=== PATIENT | female | born 2000 | race Caucasian/White ===

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

== ENCOUNTER 2020-02-04 14:09 | Outpatient (CLI) | payer BC, SELFPAY ==
[2020-02-04 14:46] LABS: Abs Immature Grans 0.01 k/cumm (0.0-0.09); Absolute Basophil Count 0.02 k/cumm (0.0-0.2); Absolute Eosinophil Count 0.02 k/cumm (0.0-0.7); Absolute Lymphocyte Count 2.25 k/cumm (1.2-3.4); Absolute Monocyte Count 0.31 k/cumm (0.11-0.7); Absolute Neutrophil Count 5.04 k/cumm (1.2-6.7); Basophils % 0.3; Eosinophils % 0.3; HCT 41.5 % (36.0-46.0); HGB 14.1 g/dL (12.0-15.5); Immature Grans % 0.1 %; Lymphocytes % 29.4; Mean Corpuscular Hemoglobin 29.4 pg (27.0-33.0); Mean Corpuscular Volume 86.6 fL (80-95); Mean Platelet Volume 10.8 fL (8.0-11.0); Monocytes % 4.1; Neutrophils % 65.8; Platelet Count 194 x1000/uL (130-400); RBC 4.79 m/cumm (4.00-5.20); RBC Distribution Width 12.6 % (11.7-14.6); White Blood Cell Count 7.65 k/cumm (4.4-10.8)
[2020-02-04 15:08] LABS: Hemoglobin A1C 5.2 % (3.8-5.6)
[2020-02-04 15:44] LABS: ALT 18 U/L (14-59); AST 20 U/L (15-37); Albumin 4.1 g/dL (3.4-5.0); Alkaline Phosphatase 67 U/L (46-116); Anion Gap 9.1 mmol/L (3-11); BUN 11 mg/dL (7-18); Bilirubin, Total 0.4 mg/dL (0.2-1.0); CO2 26.9 mmol/L (21.0-32.0); Calcium 8.7 mg/dL (8.5-10.1); Chloride 105 mmol/L (98-107); FREE T4 0.96 ng/dL (0.78-1.34); Glucose 88 mg/dL (74-106); Potassium 3.7 mmol/L (3.5-5.1); Sodium 141 mmol/L (136-145); TSH 1.29 uIU/mL (0.52-4.13); Total Protein 7.2 g/dL (6.4-8.2)
== END 2020-02-04 14:29 ==
PROVIDERS: PCP Nurse Practitioner Family; Visit Provider Nurse Practitioner Family
DX: R10.9 Unspecified abdominal pain (principal); R11.2 Nausea with vomiting, unspecified
CPT/HCPCS: 36415; 80053; 83036; 84439; 84443; 85025

== ENCOUNTER 2020-03-28 18:20 | Outpatient (REF) | payer BC, SELFPAY ==
[2020-03-30 13:20] LABS: Chlamydia Result Negative (Negative); GC Result Negative (Negative)
== END 2020-03-28 18:40 ==
LOC: LBN 18:20
PROVIDERS: PCP Nurse Practitioner Family; Visit Provider Nurse Practitioner Women's Health
DX: Z11.3 Encounter for screening for infections with a predominantly sexual mode of transmission (principal)
CPT/HCPCS: 87491; 87591

== ENCOUNTER 2020-09-14 14:32 | Outpatient (REF) | payer BC, SELFPAY ==
[2020-09-14 20:28] LABS: Abs Immature Grans 0.02 10^3/uL (0.0-0.06); Absolute Basophil Count 0.03 10^3/uL (0.0-0.2); Absolute Eosinophil Count 0.01 10^3/uL (0.0-0.7); Absolute Lymphocyte Count 2.41 10^3/uL (1.2-3.4); Absolute Neutrophil Count 5.55 10^3/uL (1.2-6.7); Basophils % 0.4; Eosinophils % 0.1; HCT 39.9 % (36.0-46.0); HGB 13.5 g/dL (11.2-15.7); Immature Grans % 0.2; MCH 29.5 pg (27.0-33.0); MCHC 33.8 % (32.0-36.0); MCV 87.1 fL (80-95); MPV 11.3 fL (8.0-11.0); Monocytes % 3.6; Neutrophils % 66.7; Nucleated RBC 0 %; Platelet Count 174 10^3/uL (130-400); RBC 4.58 10^6/uL (3.93-5.22); RDW 11.9 % (11.7-14.6); RDW-SD 38.1 fL; WBC 8.32 10^3/uL (4.4-10.8)
[2020-09-14 20:36] LABS: ALT 20 U/L (14-59); AST 19 U/L (15-37); Alkaline Phosphatase 65 U/L (46-116); Amylase 38 U/L (25-115); BUN 14 mg/dL (7-18); Bilirubin, Total 0.4 mg/dL (0.2-1.0); CREATININE 0.88 mg/dL (0.55-1.02); Calcium 8.8 mg/dL (8.5-10.1); Chloride 104 mmol/L (98-107); Glucose 81 mg/dL (74-106); Lipase 86 U/L (73-393); Potassium 3.8 mmol/L (3.5-5.1); Sodium 138 mmol/L (136-145); Total Protein 6.9 g/dL (6.4-8.2)
== END 2020-09-14 14:52 ==
LOC: LBN 14:32
PROVIDERS: PCP Nurse Practitioner Family; Visit Provider Nurse Practitioner Family
DX: R10.84 Generalized abdominal pain (principal); K92.0 Hematemesis
CPT/HCPCS: 80053; 83690; 82150; 85025

== ENCOUNTER 2020-09-21 01:29 | Outpatient (CLI) | payer BC, SELFPAY ==
--- NOTE | 2020-09-21 06:41 | DI.US_ITS ---
EXAM: US ABD PELV TRANSVAG NON-OB INDICATION: ABD AND LOWER ABD PAIN,? OVARIAN CYST,R10.84,R10.30 COMPARISON: No exams were available for comparison TECHNIQUE: Ultrasound abdomen performed using standard protocol FINDINGS: Abdominal ultrasound was performed according to the usual protocol. The liver is normal in size and shape. No focal hepatic lesion seen. There is no evidence of cholelithiasis or biliary dilatation. No gallbladder wall thickening or peric holecystic fluid collection. Pancreas appears intact as visualized. Spleen is unremarkable in appearance with no focal lesion. Kidneys are normal in size and shape. No renal mass, hydronephrosis, or nephrolithiasis. Abdominal aorta and IVC are of normal diameter. Pelvic ultrasound was performed transabdominally and transvaginally. Uterus is unremarkable in appea ezekiel, measuring about 5 x 2 x 4 cm. Endometrial stripe is 3 millimeters in thickness and appears ho mogeneous. Right and left ovary have a normal follicular appearance, right ovary measures 31 x 14 x 18 millimete rs and left ovary measures 30 x 18 x 18 millimeters. No free fluid identified in the cul-de-sac. IMPRESSION: Negative abdominal ultrasound . Negative pelvic ultrasound.
== END 2020-09-21 01:49 ==
PROVIDERS: PCP Nurse Practitioner Family; Visit Provider Nurse Practitioner Family
DX: R10.84 Generalized abdominal pain (principal); R10.30 Lower abdominal pain, unspecified
CPT/HCPCS: 76700; 76830; 76856

== ENCOUNTER 2020-10-23 10:00 | Outpatient (CLI) | payer BC, SELFPAY ==
[2020-10-24 17:44] LABS: Patient Race White; SARS-CoV-2 RNA Undetected (Undetected); SARS-CoV-2 Specimen Source Nasal
== END 2020-10-23 10:20 ==
PROVIDERS: PCP Nurse Practitioner Family; Visit Provider Nurse Practitioner Family
DX: Z11.59 Encounter for screening for other viral diseases (principal)
CPT/HCPCS: U0003

== ENCOUNTER 2020-12-05 22:55 | Outpatient (REF) | payer BC, SELFPAY ==
[2020-12-07 15:45] LABS: Chlamydia Result Negative (Negative); GC Result Negative (Negative)
== END 2020-12-05 23:15 ==
LOC: LBN 22:55
PROVIDERS: PCP Nurse Practitioner Family; Visit Provider Physician Assistant
DX: R10.2 Pelvic and perineal pain (principal)
CPT/HCPCS: 87491; 87591; 87480; 87510; 87660

== ENCOUNTER 2020-12-13 04:19 | Outpatient (CLI) | payer BC, SELFPAY ==
[2020-12-15 10:28] LABS: HSV Type 1 Ab, IgG Negative (Negative); HSV Type 2 Ab, IgG Positive (Negative)
== END 2020-12-13 04:39 ==
PROVIDERS: Physician Assistant; PCP Nurse Practitioner Family; Visit Provider Nurse Practitioner Family
DX: R10.2 Pelvic and perineal pain (principal)
CPT/HCPCS: 36415; 86695; 86696

== ENCOUNTER 2021-01-26 02:06 | Outpatient (CLI) | payer BC, SELFPAY ==
[2021-01-26 12:37] LABS: BUN 12 mg/dL (7-18); CREATININE 0.8 mg/dL (0.55-1.02); Calcium 8.9 mg/dL (8.5-10.1); Calculated LDL 94 mg/dL (<100); Chloride 107 mmol/L (98-107); Cholesterol 173 mg/dL (<200); Glucose 88 mg/dL (74-106); HDL Cholesterol 67 mg/dL (40-60); Potassium 4.7 mmol/L (3.5-5.1); Sodium 144 mmol/L (136-145); Triglyceride 63 mg/dL (<150)
== END 2021-01-26 02:07 | disposition home or self-care (01) ==
LOC: LOS 02:06
PROVIDERS: PCP Nurse Practitioner Family; Visit Provider Nurse Practitioner Family
DX: Z00.00 Encounter for general adult medical examination without abnormal findings (principal); Z13.220 Encounter for screening for lipoid disorders
CPT/HCPCS: 36415; 80048; 80061

== ENCOUNTER 2021-04-04 23:07 | Outpatient (REF) | payer BC, SELFPAY ==
[2021-04-06 15:46] LABS: Chlamydia Result Negative (Negative); GC Result Negative (Negative)
== END 2021-04-04 23:08 | disposition home or self-care (01) ==
LOC: LBN 23:07
PROVIDERS: PCP Nurse Practitioner Family; Visit Provider Family Medicine
DX: N89.8 Other specified noninflammatory disorders of vagina (principal); Z11.3 Encounter for screening for infections with a predominantly sexual mode of transmission
CPT/HCPCS: 87491; 87591; 87480; 87510; 87660

== ENCOUNTER 2021-06-05 13:52 | Outpatient (CLI) | payer BC, SELFPAY ==
--- NOTE | 2021-06-05 13:30 | DI.RAD_ITS ---
Exam(s) XR SHOULDER LT COMPLETE 2+V EXAM: XR SHOULDER LT COMPLETE 2+V CLINICAL HISTORY: left shoulder pain. TECHNIQUE: 2D digital imaging was performed. COMPARISON: CR XR shoulder LT complete 2+V from 06/16/2019 FINDINGS: There is no evidence of fracture or dislocation or abnormal soft tissue calcifications in the subacro mial space. No degenerative changes in the glenohumeral and AC joints. Coracoid process is unremark able. Bone density is normal. There are no osseous lesions. IMPRESSION: DATA REPOSITORY: RADIATION DOSE DELIVERED:
== END 2021-06-05 13:53 | disposition home or self-care (01) ==
LOC: DIORS 13:52
PROVIDERS: PCP Nurse Practitioner Family; Referring Provider Nurse Practitioner Family; Visit Provider Student in an Organized Health Care Education/Training Program
DX: M25.512 Pain in left shoulder (principal)
CPT/HCPCS: 73030

== ENCOUNTER 2021-11-13 17:08 | Outpatient (REF) | payer BC, SELFPAY ==
[2021-11-15 16:58] LABS: COVID-19 RT-PCR UVMMC Result Negative (Negative)
== END 2021-11-13 17:09 | disposition home or self-care (01) ==
LOC: LBN 17:08
PROVIDERS: PCP Nurse Practitioner Family; Visit Provider Family Medicine
DX: Z20.822 Contact with and (suspected) exposure to COVID-19 (principal); R05.8 Other specified cough
CPT/HCPCS: U0003

== ENCOUNTER 2021-11-17 02:57 | Emergency (ER) | payer BC, SELFPAY ==
[2021-11-17 03:00] VITALS: BP 181/117; PULSE 110; RESP 18; TEMP 36.7; O2SAT 99
--- NOTE | 2021-11-17 03:15 | ED.GENADUL_ITS ---
Discharge Plan Disposition Patient Disposition: HOME Condition: Stable Discharge Details Clinical Impression: Laceration of right thigh Primary Care Provider: Kim Campuzano ED Provider: Fred Villalta Home Meds and New Rx's Prescriptions: Continued norgestimate-ethinyl estradiol [Sprintec (28)] 0.25-35 mg-mcg tablet 1 tab PO DAILY Qty: 84 RF: 4 valacyclovir 1 gram tablet 1,000 mg PO DAILY Qty: 90 RF: 4 albuterol sulfate 90 mcg/actuation HFA aerosol inhaler 2 puff inhalation Q8H Qty: 6.7 RF: 4 Discontinued prednisone 20 mg tablet 40 mg PO DAILY Qty: 14 RF: 0 Discharge Instructions Additional Instructions: return in 7-10 days for evaluation for suture removal you can stop taking the prednisone if you have spreading redness, yellow/white discharge or severe worsening pain return to the emergency department follow up with [facility] human services, they should be reaching out to you later today Medical Decision Making 21 yo female comes in with wound to the anterior mid right thigh. She states she has been feeling depressed recently and having thoughts of self harm and tonight used a knife and cut her right thigh leaving a 4cm laceration that runs horizontally. Denies now that she wants to kill herself or having a plan and has not taken or done anything else to harm herself. The wound is superficial but will need sutures to close. Will also have mental health evaluate mental health evaluated and feel she is low risk and safe for d/c and will follow up with her today, agree that discharge is a safe plan. Wound closed without incident, return precautions given Differential Diagnosis Differential Diagnosis: laceration, depression Medical Records Medical records reviewed: Yes I reviewed the patient's medical records. HPI General Mode of arrival: ambulatory . Date/Time Provider Initiated Documentation: 11/17/21 03:07 . Limitations to Documentation: no limitations . Information obtained by: patient . History of Present Illness 21 year old F presents to the emergency department with the chief complaint of cut to right thigh, described as moderate, Quality is described as aching, Patient started experiencing this hour(s) (1) and it has been constant. No relieving factors improve symptom(s), No exacerbating factors reported . Patient notes no other symptoms.. Related Data Home Medications Medication Instructions Recorded Confirmed norgestimate 0.25 mg-ethinyl 1 tab PO DAILY #84 tab 01/22/21 11/13/21 estradiol 35 mcg tablet valacyclovir 1 gram tablet 1,000 mg PO DAILY #90 tab 08/01/21 11/13/21 albuterol sulfate 90 mcg/actuation 2 puff INHALATION Q8H #6.7 g 11/06/21 11/13/21 aerosol inhaler Previous Rx's Medication Instructions Recorded norgestimate 0.25 mg-ethinyl 1 tab PO DAILY #84 tab 01/22/21 estradiol 35 mcg tablet valacyclovir 1 gram tablet 1,000 mg PO DAILY #90 tab 08/01/21 albuterol sulfate 90 mcg/actuation 2 puff INHALATION Q8H #6.7 g 11/06/21 aerosol inhaler Allergies Allergy/AdvReac Type Severity Reaction Status Date / Time nickel AdvReac Unknown Skin Rash Verified 11/13/21 13:07 General Stated Complaint: Laceration KATY: 4 Review of Systems All systems reviewed & are unremarkable except as noted in HPI and below Constitutional Constitutional: Denies chills, Denies fever(s) and Denies weakness Cardiovascular Cardiovascular: Denies chest pain and Denies dyspnea Respiratory Respiratory: Denies cough and Denies dyspnea Gastrointestinal Gastrointestinal: Denies abdominal pain, Denies nausea and Denies vomiting Musculoskeletal Musculoskeletal: Denies joint swelling Neurologic Neurologic: Denies weakness PFSH All Active Problems (Updated 11/17/21 @ 03:25 by Fred Villalta MD) Laceration of right thigh (Acute) COVID-19 (Acute) 10/2021-associated with URI and bronchospasm Tendinitis of long head of biceps brachii of left shoulder (Acute) Labral tear of shoulder (Acute) Instability of left shoulder joint (Acute) Vaginal discharge (Acute) Cervical motion tenderness (Acute) Depressive disorder (Chronic) Generalized anxiety disorder (Chronic) Genital herpes (Acute) Surgical History No significant past surgical history Family History Mother Asthma Alcohol abuse Depression Father Bipolar disorder Alcohol abuse Sister Alcohol abuse Depression Brother No problems noted. Brother Alcohol abuse Maternal Grandfather , at 63 Brain cancer Depression Heart disease Hyperlipidemia Hypertension Type 2 diabetes mellitus Maternal Grandmother Depression Hyperlipidemia Paternal Grandfather , at 52 Brain cancer Type 2 diabetes mellitus Alcohol abuse Heart disease Hyperlipidemia Hypertension Paternal Grandmother , 50s Alcohol abuse Lung cancer Depression Social History Smoking/Tobacco Use Status: Never Smoking risk assessment performed?: Yes Alcohol Intake: current Alcohol Intake frequency: a few times a month Substance use type: marijuana Caregiver/Support person: No Household members: family Housing: house Communication Needs: None Do you need help understanding health information?: Never Pets and animals: Yes Pets and animals: cat(s) Sexually active: Yes Do you think of yourself as: bisexual Current gender identity: female What is your relationship status?: never How often do you talk on the phone with friends or family?: three or more times per week How often do you get together with friends or relatives?: three or more times per week How often do you attend alevism or hoahaoism services?: decline to answer Do you belong to any clubs or organized social groups?: no Panel score (0-1 are the most socially isolated patients): 1 What type of physical activity do you participate in: decline to answer Duration: 30-45 minutes/day Frequency: 3-4 times per week Dawn/Mormonism: None Special dawn needs: No Seatbelt use: sometimes Helmet use: Yes Helmet use: sometimes Drive intox or ride w/intox transit driver: No Do you feel safe at home: Yes Do you feel safe in your relationship?: Yes Female Reproductive History Menstrual control method: pills History History 0 Para Hx # Term Pregnancies Multiple births Hx # Pregnancies Ectopic pregnancies AB induced Hx Number of Living Children AB spontaneous Exam Const General: no acute distress Orientation: alert HENMT Head: normal to inspection Ears: external ears normal General nose exam: external nose normal Mouth: moist mucous membranes Eyes General: appearance normal, both eyes and all related structures Neck Neck: normal visual inspection Resp Effort & Inspection: normal respiratory effort and able to speak in complete sentences Cardio Rate: regular rate Skin General skin exam: no rashes or lesions noted Neuro General: patient alert and patient oriented x3 Extrem General: full ROM and capillary refill normal Psych Mental Status: mental status grossly normal Course Vital Signs Vital signs: Vital Signs Temperature 36.7 C 11/17/21 03:00 Pulse 110 H 11/17/21 03:00 Respiratory Rate 18 12/25/21 03:00 Blood Pressure 181/117 H 11/17/21 03:00 Pulse Oximetry 99 11/17/21 03:00 Temperature 36.7 C 11/17/21 03:00 Temperature Source Temporal Artery Scan 11/17/21 03:00 Pulse 110 H 11/17/21 03:00 Respiratory Rate 18 11/17/21 03:00 Respiratory Effort 11/17/21 03:07 Blood Pressure 181/117 H 11/17/21 03:00 Blood Pressure Position Supine 11/17/21 03:00 Pulse Oximetry 99 11/17/21 03:00 Oxygen Delivery Method Room Air 11/17/21 03:00 Oxygen Flow Rate 0 11/17/21 03:00 Pain Level 0 11/17/21 03:00 Procedures Laceration Laceration 1: Site: lower extremity Side (If applicable): right Size (cm): 4 Description: linear Depth: simple, single layer Local Anesthetic: Lidocaine 1% Amount of anesthesia used (mL): 5 Pre-repair: wound explored and irrigated extensively Skin layer closed with: nylon Size (cm): 5-0 Number of sutures: 4 Technique: simple, interrupted
--- NOTE | 2021-11-17 04:18 | PDOC.MHCN ---
Date of service: 11/17/21 Time of Service: 04:18 Mental Health Crisis Note Presenting Issue How did you arrive at the ED and why did you come: Client arrived at [facility] ED after self-harming via cutting this morning. Precipitating Factors Client currently denies SI/HI with no intent or plan Disposition BEHAVIOR: Client is laying down in hospital bed dressed in street clothes when this software writer arrives via zoom. She is cooperative and engages with this software writer, although appears to be withdrawn at times. Client states that tonight she was having a panic attack and used a razor blade to cut a 4 inch laceration on her thigh. She states that as soon as she did that she automatically regretted it and threw all sharps away. EYE CONTACT: Client gives good eye contact. MOOD: Clients mood appears to be depressed. AFFECT: Flat affect APPETITE: Client states that her appetite has been good, she feels likes she has been eating more than normal though. SLEEP(trouble falling/staying asleep: Client states that since taking steroid for cold she has been getting minimal sleep, about 1 hour each night. Plan Client will go home on safety plan, which includes: all medications and sharps will be locked up so client no longer has access, client will check-in with [facility] this afternoon phone number provided, and if client does not feel like she can keep herself safe at home she will report back to [facility] ED. Signature Clinician's Name/Title: Katlin Rascon, [facility] emergency clinician.
[2021-11-17 04:41] VITALS: BP 122/68; PULSE 95; RESP 18; O2SAT 99
== END 2021-11-17 04:44 | disposition home or self-care (01) ==
PROVIDERS: Emergency Provider Emergency Medicine; PCP Nurse Practitioner Family
DX: S71.111A Laceration without foreign body, right thigh, initial encounter (principal); X78.1XXA Intentional self-harm by knife, initial encounter
CPT/HCPCS: 12002

== ENCOUNTER 2021-12-12 15:09 | Outpatient (REF) | payer BC, SELFPAY ==
--- NOTE | 2021-12-12 14:50 | PAPFT_PTH ---
PATIENT: Asiya Tate LOC: [facility] U#:[id number] AGE/SX: 21/F ROOM: RE12/12/[address]: Deisi Villalta NP : [id number] BED: DIS: 12/12/2021 SPEC #: [id number] RECD: 12/12/21 18:04 STATUS: ISABELLA ARGUELLES #: [id number] SEVERO: 12/12/21 14:[address]: Deisi Villalta NP DEPT: [facility] Cytology RECD BY: Leatha Matute ENTERED: 12/12/21 18:04 SP TYPE: PAPFT TEREZA DR: Kim Campuzano, [employer] Tissues: 1 - CX/ENDOCX FOR PAP SMEARS Procedures: PAP THIN PREP/[facility] Screening Comments: [id number] (CHLAMYDIA/GC)
[2021-12-13 16:38] LABS: Chlamydia Result Negative (Negative); GC Result Negative (Negative)
== END 2021-12-12 15:10 | disposition home or self-care (01) ==
LOC: LBN 15:09
PROVIDERS: PCP Nurse Practitioner Family; Visit Provider Nurse Practitioner Women's Health
DX: Z12.4 Encounter for screening for malignant neoplasm of cervix (principal); Z11.3 Encounter for screening for infections with a predominantly sexual mode of transmission
CPT/HCPCS: 87491; 87591; 88142

== ENCOUNTER 2022-01-16 19:00 | Outpatient (REF) | payer BC, SELFPAY ==
[2022-01-18 15:21] LABS: Chlamydia Result Negative (Negative); GC Result Negative (Negative)
== END 2022-01-16 19:01 | disposition home or self-care (01) ==
LOC: LBN 19:00
PROVIDERS: PCP Nurse Practitioner Family; Visit Provider Nurse Practitioner Women's Health
DX: Z11.3 Encounter for screening for infections with a predominantly sexual mode of transmission (principal)
CPT/HCPCS: 87491; 87591

== ENCOUNTER 2022-03-25 14:36 | Outpatient (CLI) | payer BC, SELFPAY ==
[2022-03-25 13:59] LABS: Abs Immature Grans 0.03 10^3/uL (0.0-0.06); Absolute Basophil Count 0.03 10^3/uL (0.0-0.2); Absolute Eosinophil Count 0.02 10^3/uL (0.0-0.7); Absolute Lymphocyte Count 2.94 10^3/uL (1.2-3.4); Absolute Monocyte Count 0.36 10^3/uL (0.1-0.8); Absolute Neutrophil Count 5.95 10^3/uL (1.2-6.7); Basophils % 0.3; Eosinophils % 0.2; HCT 39.6 % (36.0-46.0); HGB 13.2 g/dL (11.2-15.7); Immature Grans % 0.3; Lymphocytes % 31.5; MCH 29.9 pg (27.0-33.0); MCHC 33.3 % (32.0-36.0); MCV 90 fL (80-95); Monocytes % 3.9; Neutrophils % 63.8; Platelet Count 184 10^3/uL (130-400); RBC 4.41 10^6/uL (3.93-5.22); RDW 12.1 % (11.7-14.6); RDW-SD 40.4 fL; WBC 9.33 10^3/uL (4.4-10.8)
[2022-03-25 14:01] LABS: Bilirubin Negative (Negative); Blood Negative (Negative); Clarity Clear (Clear); Glucose Negative (Negative); Ketones Negative (Negative); Leukocyte Esterase Negative (Negative); Nitrite Negative (Negative); Specific Gravity >= 1.030 (1.005-1.025); Urobilinogen 0.2 EU/dL (Up TO 0.2)
[2022-03-25 14:02] LABS: ESR < 1 mm/hr (0-20)
[2022-03-25 14:09] LABS: ALT 17 U/L (14-59); AST 16 U/L (15-37); Albumin 3.9 g/dL (3.4-5.0); Alkaline Phosphatase 72 U/L (46-116); BUN 17 mg/dL (7-18); Bilirubin, Total 0.2 mg/dL (0.2-1.0); CREATININE 0.8 mg/dL (0.55-1.02); Calcium 8.4 mg/dL (8.5-10.1); Chloride 105 mmol/L (98-107); Glucose 83 mg/dL (74-106); Lipase 84 U/L (73-393); Potassium 3.5 mmol/L (3.5-5.1); Sodium 141 mmol/L (136-145); Total Protein 7.2 g/dL (6.4-8.2)
[2022-03-25 15:48] LABS: C-Reactive Protein 0.13 mg/dL (0.0-0.3); TSH (W/Ref FT4) 0.65 uIU/mL (0.36-3.74)
== END 2022-03-25 14:37 | disposition home or self-care (01) ==
PROVIDERS: Family Medicine; PCP Nurse Practitioner Family; Visit Provider Family Medicine
DX: I10 Essential (primary) hypertension (principal); E03.9 Hypothyroidism, unspecified; R10.9 Unspecified abdominal pain; M25.50 Pain in unspecified joint
CPT/HCPCS: 36415; 80053; 83690; 85652; 81003; 84443; 85025; 86140

== ENCOUNTER 2022-05-03 15:37 | Outpatient (REF) | payer BC, SELFPAY ==
[2022-05-06 15:37] LABS: Chlamydia Result Negative (Negative); GC Result Negative (Negative)
== END 2022-05-03 15:38 | disposition home or self-care (01) ==
LOC: LBN 15:37
PROVIDERS: PCP Nurse Practitioner Family; Visit Provider Obstetrics & Gynecology
DX: R10.2 Pelvic and perineal pain (principal)
CPT/HCPCS: 87491; 87591

== ENCOUNTER 2022-08-13 08:52 | Emergency (ER) | payer OTHER, SELFPAY ==
[2022-08-13 09:37] VITALS: BP 135/88; PULSE 68; RESP 16; TEMP 37.2; O2SAT 100
[2022-08-13 09:45] LABS: Bilirubin Negative (Negative); Blood Negative (Negative); Clarity Clear (Clear); Glucose Negative (Negative); Ketones Negative (Negative); Leukocyte Esterase Negative (Negative); Nitrite Negative (Negative); Specific Gravity >= 1.030 (1.005-1.025); Urobilinogen 0.2 EU/dL (Up TO 0.2); pH 5.5 (5-8)
[2022-08-13 10:06] LABS: Abs Immature Grans 0.02 10^3/uL (0.0-0.06); Absolute Basophil Count 0.02 10^3/uL (0.0-0.2); Absolute Eosinophil Count 0.03 10^3/uL (0.0-0.7); Absolute Lymphocyte Count 2.32 10^3/uL (1.2-3.4); Absolute Monocyte Count 0.37 10^3/uL (0.1-0.8); Absolute Neutrophil Count 3.76 10^3/uL (1.2-6.7); Basophils % 0.3; Eosinophils % 0.5; HCT 41.5 % (36.0-46.0); HGB 13.8 g/dL (11.2-15.7); Immature Grans % 0.3; Lymphocytes % 35.6; MCH 29.2 pg (27.0-33.0); MCHC 33.3 % (32.0-36.0); MCV 88 fL (80-95); MPV 10.5 fL (8.0-11.0); Monocytes % 5.7; Neutrophils % 57.6; Platelet Count 184 10^3/uL (130-400); RBC 4.72 10^6/uL (3.93-5.22); RDW 12.4 % (11.7-14.6); RDW-SD 40.7 fL; WBC 6.52 10^3/uL (4.4-10.8)
--- NOTE | 2022-08-13 10:14 | DI.US_ITS ---
Exam(s) US ABD PELV TRANSVAG NON-OB EXAM: US ABD PELV TRANSVAG NON-OB CLINICAL HISTORY: RUQ pain, RLQ pain, eval ovary, kidney, gb, append TECHNIQUE: Ultrasound of the abdomen and pelvis was performed both transabdominal and transvaginal. COMPARISON: US US ABDOMEN LIMITED from 03/27/[address] ABDOMEN PELVIS WO from 04/04/2022 FINDINGS: ABDOMEN: There is no ascites evident. LIVER: There are no hepatic lesions evident nor obvious dilatation of intrahepatic ducts. GALLBLADDER/BILIARY: There are no gallstones. No gallbladder wall edema nor pericholecystic fluid. The common hepatic duct isnot dilated, measuring 4-5mm at the level of aleah hepatis. PANCREAS: There is no evidence of pancreatic mass nor dilatation of the pancreatic duct. SPLEEN: The spleen is not enlarged and there are no intrasplenic lesions evident. KIDNEYS:Kidneys exhibit normal size with no evidence of solid mass, calculus, nor hydronephrosis. No cortical cysts evident. ABDOMINAL AORTA: There is no evidence of abdominal aortic aneurysm. IVC: Normal diameter where visualized. UTERUS: Measures 6.5 cm length x 2.5 cm AP x 4.3 cm wide. There are no uterine fibroids. Endometrial thickness measures 1.4 mm. There is no fluid in the endometrial canal. CERVIX: There are no obvious nabothian cysts. RIGHT OVARY: Measures 4 x 2.2 x 2.7 cm Contains small sub cm follicular cysts. No solid lesions. LEFT OVARY: Measures 4.2 x 2 x 2.1 cm Also contains small sub cm follicular cysts but no solid lesions. CUL-DE-SAC: There is a tiny amount of free fluid adjacent to the uterine fundus. APPENDIX: Right lower quadrant imaging did not reveal evidence of a swollen appendix. IMPRESSION: 1. No evidence of cholelithiasis nor dilatation of the biliary tree. 2. No other significant ultrasound findings in the upper abdomen. 3. There is no ascites in the upper abdomen.. 4. Normal appearing uterus and age-appropriate endometrium. 5. No abnormal ovarian findings. 6. No obvious ultrasound evidence of appendicitis. 7. Tiny amount of free fluid adjacent to the fundus of the uterus. DATA REPOSITORY:
[2022-08-13 10:23] LABS: ALT 18 U/L (14-59); AST 18 U/L (15-37); Albumin 3.8 g/dL (3.4-5.0); Alkaline Phosphatase 66 U/L (46-116); Anion Gap 7.2 mmol/L (3-11); BUN 12 mg/dL (7-18); Bilirubin, Total 0.3 mg/dL (0.2-1.0); CO2 27.8 mmol/L (21.0-32.0); CREATININE 0.9 mg/dL (0.55-1.02); Calcium 8.9 mg/dL (8.5-10.1); Chloride 105 mmol/L (98-107); Glucose 78 mg/dL (74-106); Lipase 135 U/L (73-393); Potassium 3.7 mmol/L (3.5-5.1); Sodium 140 mmol/L (136-145); Total Protein 7.4 g/dL (6.4-8.2)
[2022-08-13] MEDS: Ketorolac 15 MG/ML VIAL IVP (10:24)
[2022-08-13] MEDS: oxyCODONE 5 MG TAB PO (10:24)
--- NOTE | 2022-08-13 12:19 | ED.GENADUL_ITS ---
Discharge Plan Disposition Patient Disposition: HOME Condition: Stable Discharge Details Clinical Impression: Abdominal pain Primary Care Provider: Kim Campuzano ED Provider: Leatha Calderón Home Meds and New Rx's Prescriptions: New dicyclomine 10 mg capsule 10 mg PO TID Qty: 14 0RF Continued valacyclovir 1 gram tablet 1,000 mg PO DAILY PRN (Reason: herpes outbreak) Qty: 60 5RF lorazepam 1 mg tablet 1 mg PO DAILY PRN (Reason: panic attack(s)) Qty: 20 0RF Rx Instructions: Use only when needed for panic attack norgestimate-ethinyl estradiol [Sprintec (28)] 0.25-35 mg-mcg tablet 1 tab PO DAILY Qty: 84 4RF Discharge Instructions Instructions: Abdominal Pain (ED) Additional Instructions: Try taking Bentyl Bentyl to see if that helps with your symptoms Take ibuprofen and Tylenol for pain control Have a low residue diet meaning low fiber Eat bland diet only, diarrhea from spicy food, coffee Follow-up with your primary care physician, you may benefit from having colonoscopy and endoscopy if you continue to have symptoms associated with food Referrals: Kim Campuzano, POPPY [Primary Care Provider] - Discharge Data Discharge Date/Time-TO BE ENTERED AT DEPARTURE: 08/13/22 12:30 Medical Decision Making Ultrasound does not show evidence of acute abnormality pelvic exam without evidence of pid referred back to pcp for further evaluation bentyl prn pain return precautions discussed and pt expressed understanding Medical Records Medical records reviewed: Yes I reviewed the patient's medical records. Lab Data Lab results reviewed: Yes I reviewed the patient's lab results. HPI General Date/Time Provider Initiated Documentation: 08/13/22 09:09 . HPI Narrative: This 22-year-old female with history of chronic right abdominal pain, generalized myalgias, depression, anxiety presents for of right upper quadrant and right lower quadrant abdominal pain. Is been going on intermittently for the past several months. Patient has had CAT scans and ultrasounds for this finding. She is actually scheduled for a CAT scan in a week. She denies any change aside from the pain being more persistent. She denies any fever or chills. She has any nausea or vomiting. Denies any diarrhea or chance of . She finished her menstrual period. She denies any dyspareunia. She is sexually active and monogamous. She denies risk of sexually disease. Related Data Home Medications Medication Instructions Recorded Confirmed lorazepam 1 mg tablet 1 mg PO DAILY PRN panic attack(s) 01/02/22 08/13/22 #20 tabs valacyclovir 1 gram tablet 1,000 mg PO DAILY PRN herpes 01/02/22 08/13/22 outbreak #60 tabs norgestimate 0.25 mg-ethinyl 1 tab PO DAILY #84 tabs 01/28/22 08/13/22 estradiol 35 mcg tablet (Sprintec (28)) dicyclomine 10 mg capsule 10 mg PO TID #14 caps 08/13/22 Previous Rx's Medication Instructions Recorded lorazepam 1 mg tablet 1 mg PO DAILY PRN panic attack(s) 01/02/22 #20 tabs valacyclovir 1 gram tablet 1,000 mg PO DAILY PRN herpes 01/02/22 outbreak #60 tabs norgestimate 0.25 mg-ethinyl 1 tab PO DAILY #84 tabs 01/28/22 estradiol 35 mcg tablet (Sprintec (28)) dicyclomine 10 mg capsule 10 mg PO TID #14 caps 08/13/22 Allergies Allergy/AdvReac Type Severity Reaction Status Date / Time nickel AdvReac Unknown Skin Rash Verified 08/13/22 09:43 General Stated Complaint: Abd Prob KATY: 3 Review of Systems All systems reviewed & are unremarkable except as noted in HPI and below PFSH All Active Problems (Updated 08/13/22 @ 12:24 by LUDMILA Alvarez) Abdominal pain (Acute) Chronic right flank pain (Acute) Generalized body aches (Acute) Bacterial vaginitis (Acute) Arthralgia (Acute) Depressive disorder (Chronic) Generalized anxiety disorder (Chronic) Genital herpes (Chronic) Macular dystrophy (Chronic) Right eye, followed by [facility] Medical History COVID-19 10/2021-associated with URI and bronchospasm Labral tear of shoulder Surveillance for control, oral contraceptives Surgical History No significant past surgical history Family History Mother Asthma Alcohol abuse Depression Father Bipolar disorder Alcohol abuse Sister Alcohol abuse Depression Brother No problems noted. Brother Alcohol abuse Maternal Grandfather , at 63 Brain cancer Depression Heart disease Hyperlipidemia Hypertension Type 2 diabetes mellitus Maternal Grandmother Depression Hyperlipidemia Paternal Grandfather , at 52 Brain cancer Type 2 diabetes mellitus Alcohol abuse Heart disease Hyperlipidemia Hypertension Paternal Grandmother , 50s Alcohol abuse Lung cancer Depression Social History Smoking/Tobacco Use Status: Never Smoking risk assessment performed?: Yes Alcohol Intake: current Alcohol Intake frequency: a few times a month Drug use: Daily Substance use type: marijuana Caregiver/Support person: No Household members: family Housing: house Communication Needs: None Do you need help understanding health information?: Never Pets and animals: Yes Pets and animals: cat(s) Sexually active: Yes Do you think of yourself as: bisexual Current gender identity: female What is your relationship status?: never How often do you talk on the phone with friends or family?: three or more times per week How often do you get together with friends or relatives?: three or more times per week How often do you attend worship or anabaptist services?: decline to answer Do you belong to any clubs or organized social groups?: no Panel score (0-1 are the most socially isolated patients): 1 What type of physical activity do you participate in: decline to answer Duration: 30-45 minutes/day Frequency: 3-4 times per week Dawn/Mandaeism: None Special dawn needs: No Seatbelt use: sometimes Helmet use: Yes Helmet use: sometimes Drive 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 Do you feel safe at home: Yes Do you feel safe in your relationship?: Yes Female Reproductive History Menstrual control method: pills History History 0 Para Hx # Term Pregnancies Multiple births Hx # Pregnancies Ectopic pregnancies AB induced Hx Number of Living Children AB spontaneous Exam Const General: cooperative, comfortable and no acute distress Eyes Sclera: sclerae normal Resp Effort & Inspection: normal respiratory effort Auscultation: clear to auscultation bilaterally Cardio Rate: regular rate Rhythm: regular rhythm GI Other: Right upper quadrant tenderness, no rebound or guarding no cva tenderness General: No CVA tenderness Skin General skin exam: no rashes or lesions noted Neuro General: patient alert and patient oriented x3 Other: no vaginal dc, rashes, lesions, or adnexal/cmt tenderness Course Vital Signs Vital signs: Vital Signs Temperature 37.2 C 08/13/22 09:37 Pulse 68 08/13/22 09:37 Respiratory Rate 16 08/13/22 09:37 Blood Pressure 135/88 08/13/22 09:37 Pulse Oximetry 100 08/13/22 09:37 Temperature 37.2 C 08/13/22 09:37 Pulse 68 08/13/22 09:37 Respiratory Rate 16 08/13/22 09:37 Respiratory Effort 08/13/22 09:44 Blood Pressure 135/88 08/13/22 09:37 Pulse Oximetry 100 08/13/22 09:37 Pain Level 7 08/13/22 09:44 Lab/Test Results Lab/Test Results: 08/13/22 10:15 Vaginal Vaginitis Screen - Final Laboratory Tests Range/Units 08/13/22 08/13/22 08/13/22 09:34 09:50 09:50 WBC (4.4-10.8) 10^3/uL 6.52 RBC (3.93-5.22) 10^6/uL 4.72 Hgb (11.2-15.7) g/dL 13.8 Hct (36.0-46.0) % 41.5 MCV (80-95) fL 88 MCH (27.0-33.0) pg 29.2 MCHC (32.0-36.0) % 33.3 RDW (11.7-14.6) % 12.4 Plt Count (130-400) 10^3/uL 184 MPV (8.0-11.0) fL 10.5 Immature Gran % 0.3 Neutrophils % 57.6 Lymphocytes % 35.6 Monocytes % 5.7 Eosinophils % 0.5 Basophils % 0.3 Nucleated RBC % (0.0-0.3) % 0.0 Absolute Neutrophils (1.2-6.7) 10^3/uL 3.76 Absolute Lymphocytes (1.2-3.4) 10^3/uL 2.32 Absolute Monocytes (0.1-0.8) 10^3/uL 0.37 Absolute Eosinophils (0.0-0.7) 10^3/uL 0.03 Absolute Basophils (0.0-0.2) 10^3/uL 0.02 Sodium (136-145) mmol/L 140 Potassium (3.5-5.1) mmol/L 3.7 Chloride (98-107) mmol/L 105 Carbon Dioxide (21.0-32.0) mmol/L 27.8 Anion Gap (3-11) mmol/L 7.2 BUN (7-18) mg/dL 12 Creatinine (0.55-1.02) mg/dL 0.9 Est GFR (CKD-EPI 2020) (mL/min/1.73m2) 92.70 Glucose (74-106) mg/dL 78 Calcium (8.5-10.1) mg/dL 8.9 Total Bilirubin (0.2-1.0) mg/dL 0.3 AST (15-37) U/L 18 ALT (14-59) U/L 18 Alkaline Phosphatase (46-116) U/L 66 C-Reactive Protein (0.0-0.3) mg/dL 0.10 Total Protein (6.4-8.2) g/dL 7.4 Albumin (3.4-5.0) g/dL 3.8 Lipase (73-393) U/L 135 Urine Color (Yellow) Yellow Urine Clarity (Clear) Clear Urine pH (5-8) 5.5 Ur Specific Davilla (1.005-1.025) >= 1.030 H Urine Protein (Negative) mg/dL Negative Urine Ketones (Negative) mg/dL Negative Urine Blood (Negative) Negative Urine Nitrite (Negative) Negative Urine Bilirubin (Negative) Negative Urine Urobilinogen (Up TO 0.2) EU/dL 0.2 Ur Leukocyte Esterase (Negative) Negative Urine Glucose (Negative) mg/dL Negative POC- Test(urine) Negative
[2022-08-14 13:26] LABS: Chlamydia Result Negative (Negative); GC Result Negative (Negative)
== END 2022-08-13 12:30 | disposition home or self-care (01) ==
PROVIDERS: Emergency Provider Physician Assistant; PCP Nurse Practitioner Family
DX: R10.11 Right upper quadrant pain (principal); R10.31 Right lower quadrant pain; Z86.16 Personal history of COVID-19
CPT/HCPCS: 80053; 81025; 83690; 87491; 87591; 96374; 99284; 76700; 76830; 76856; 81003; 85025; 86140; 87480; 87510; 87660; J1885

== ENCOUNTER → 2022-08-22 03:31 | Outpatient (CLI) | payer OTHER, SELFPAY ==
--- NOTE | 2022-08-22 08:00 | DI.CT_ITS ---
Exam(s) CT ABDOMEN PELVIS W EXAM: CT ABDOMEN PELVIS W CLINICAL HISTORY: right flank mass,r19.00 TECHNIQUE: Imaging Protocol: Axial computed tomography images with coronal and sagittal reformatted images were created and reviewed CONTRAST MATERIAL: Intravenous: Omnipaque 350 Contrast volume:100 mL Oral: Yes COMPARISON: CT CT ABDOMEN PELVIS WO from 04/04/2022 FINDINGS: ABDOMEN: Lung Bases: Normal where visualized. Liver: Normal density. No measurable mass. Portal, Superior Mesenteric, and Splenic Veins: Unremarkable. Gallbladder and Biliary Tract: No radiodense calculus or dilation. Pancreas: Normal density, no abnormal calcifications or inflammatory process. Spleen: Normal. Adrenals: No masses seen. Kidneys: Normal size, contour and axis. No radiodense stones or obstructive uropathy. No masses seen. Abdominal Aorta: Abdominal portion non-dilated. Bowel: No obstruction or bowel wall thickening. Appendix is unremarkable. Peritoneal Cavity: No ascites, collection or mesenteric inflammatory response. No free air. Lymph Nodes: Within normal limits. Bones: Within normal limits for the patient's age. Soft Tissues: Unremarkable. PELVIS: Bladder: Symmetric distention, no gross wall thickening. Reproductive Organs: Unremarkable as visualized. Lymph Nodes: Within normal limits. Bones: Within normal limits for the patient's age. IMPRESSION: No acute abdominal or pelvic process. RADIATION DOSE DELIVERED: 1,008.12mGy.cm Total DLP DATA REPOSITORY: All CT scans at this facility are submitted to the National Radiology Data Registry (NRDR) Dose Index Registry (DIR) with the [employer] (ACR). RADIATION OPTIMIZATION: All CT scans at this facility use at least one of these dose optimization te chniques: automated exposure control; mA and/or kV adjustment per patient size (includes targeted exa ms where dose is matched to clinical indication); or iterative reconstruction.
[2022-08-22] MEDS: Barium Sulfate 2% W/V-Berry Smoothie 450 ML BTL 900 ML PO (13:01)
[2022-08-22] MEDS: Omnipaque 350 MG/ML 100 ML BTL IJ (13:01)
== END ==
PROVIDERS: PCP Nurse Practitioner Family; Visit Provider Nurse Practitioner Family
DX: R19.00 Intra-abdominal and pelvic swelling, mass and lump, unspecified site (principal)
CPT/HCPCS: 74177; J3490

== ENCOUNTER 2022-12-03 03:15 | Outpatient (CLI) | payer OTHER, SELFPAY ==
[2022-12-03 14:43] LABS: Panorama Kit Sent via Fed Ex
[2022-12-03 14:46] LABS: Abs Immature Grans 0.02 10^3/uL (0.0-0.06); Absolute Basophil Count 0.03 10^3/uL (0.0-0.2); Absolute Eosinophil Count 0.02 10^3/uL (0.0-0.7); Absolute Lymphocyte Count 2.18 10^3/uL (1.2-3.4); Absolute Monocyte Count 0.44 10^3/uL (0.1-0.8); Basophils % 0.3; Eosinophils % 0.2; HCT 36.2 % (36.0-46.0); HGB 12.6 g/dL (11.2-15.7); Immature Grans % 0.2; Lymphocytes % 23.7; MCH 29.6 pg (27.0-33.0); MCHC 34.8 % (32.0-36.0); MCV 85 fL (80-95); MPV 10.3 fL (8.0-11.0); Monocytes % 4.8; Neutrophils % 70.8; Platelet Count 175 10^3/uL (130-400); RBC 4.26 10^6/uL (3.93-5.22); RDW 12.3 % (11.7-14.6); RDW-SD 37.5 fL; WBC 9.19 10^3/uL (4.4-10.8)
[2022-12-03 14:48] LABS: ESR 3 mm/hr (0-20)
[2022-12-03 16:23] LABS: ALT 14 U/L (14-59); AST 18 U/L (15-37); Albumin 3.6 g/dL (3.4-5.0); Alkaline Phosphatase 59 U/L (46-116); Anion Gap 8.3 mmol/L (3-11); BUN 12 mg/dL (7-18); Bilirubin, Total 0.2 mg/dL (0.2-1.0); CO2 25.7 mmol/L (21.0-32.0); CREATININE 0.6 mg/dL (0.55-1.02); Calcium 8.5 mg/dL (8.5-10.1); Chloride 102 mmol/L (98-107); Estimated GFR 130.07 (mL/min/1.73m2); Glucose 82 mg/dL (74-106); Potassium 3.5 mmol/L (3.5-5.1); Sodium 136 mmol/L (136-145); Total Protein 6.9 g/dL (6.4-8.2)
[2022-12-03 18:07] LABS: *AMPHETAMINES SCREEN URINE Negative (Negative); *BARBITURATES SCREEN URINE Negative (Negative); *BENZODIAZEPINES SCREEN URINE Negative (Negative); Cannabinoids THC Negative (Negative); Cocaine Screen,Urine Negative (Negative); METHADONE URINE SCREEN Negative (Negative); OPIATES URINE SCREEN Negative (Negative)
[2022-12-03 18:16] LABS: Tricyclic Antidepressants Negative (Negative)
[2022-12-03 22:03] LABS: CRP, High Sensitivity 2.58 mg/L (See Note); Rheumatoid Factor <8.6 IU/mL (<12.0)
[2022-12-04 10:05] LABS: Hepatitis C Ab w Rflx HCV PCR Negative (Negative)
[2022-12-04 10:27] LABS: HIV-1/2 Ag & Ab Screen Negative (Negative)
[2022-12-04 10:35] LABS: Varicella IgG Antibody Negative (See Note)
[2022-12-04 10:39] LABS: Lyme Ab w Rflx to Lyme Confirm Negative (Negative)
[2022-12-04 10:40] LABS: Rubella IgG Ab (UVM) Negative (See Note)
[2022-12-04 12:54] LABS: Hepatitis B Surface Ag Negative (Negative)
[2022-12-04 14:18] LABS: ANA Interpretation Positive (Negative); ANA Titer Pattern 1:640 Homogeneous
[2022-12-04 21:28] LABS: EBV EA IgG Negative (Negative)
[2022-12-05 15:44] LABS: Syphilis IgG w/Reflex Nonreactive (Nonreactive)
[2022-12-05 17:32] LABS: Anaplasma phagocytophilum Negative (Negative); B. miyamotoi PCR Negative (Negative); Babesia divergens/MO-1 Negative (Negative); Babesia duncani Negative (Negative); Babesia microti Negative (Negative); Ehrlichia chaffeensis Negative (Negative); Ehrlichia ewingii/canis Negative (Negative); Ehrlichia muris eauclairensis Negative (Negative)
[2022-12-06 13:53] LABS: dsDNA Ab, IgG <12.3 IU/mL (<30.0)
[2022-12-07 16:20] LABS: Buprenorphine Negative ng/mL (Cutoff: 5.0); Norbuprenorphine Negative ng/mL (Cutoff: 2.5)
== END 2022-12-03 03:16 | disposition home or self-care (01) ==
LOC: LBO 03:15
PROVIDERS: PCP Nurse Practitioner Family; Visit Provider Advanced Practice Midwife
DX: Z34.91 Encounter for supervision of normal pregnancy, unspecified, first trimester
CPT/HCPCS: 36415; 80053; 80307; 80348; 85652; 86141; 86663; 86787; 86803; 86850; 86900; 86901; 87340; 87389; 87798; 85025; 86038; 86225; 86431; 86618; 86762; 86780; 87086

== ENCOUNTER 2023-01-03 17:08 | Outpatient (REF) | payer OTHER, SELFPAY ==
[2023-01-06 14:39] LABS: Chlamydia Result Negative (Negative); GC Result Negative (Negative)
== END 2023-01-03 17:09 | disposition home or self-care (01) ==
LOC: LBN 17:08
PROVIDERS: PCP Nurse Practitioner Family; Visit Provider Advanced Practice Midwife
DX: Z34.92 Encounter for supervision of normal pregnancy, unspecified, second trimester (principal)
CPT/HCPCS: 87491; 87591

== ENCOUNTER 2023-02-05 14:14 | Outpatient (REF) | payer OTHER, SELFPAY | END 2023-02-05 14:15 | disposition home or self-care (01) | LOC: LBN 14:14 | PROVIDERS: PCP Nurse Practitioner Family; Visit Provider Advanced Practice Midwife | DX: O26.892 Other specified pregnancy related conditions, second trimester (principal); N89.8 Other specified noninflammatory disorders of vagina; Z3A.20 20 weeks gestation of pregnancy | CPT/HCPCS: 87480; 87510; 87660 ==

== ENCOUNTER 2023-03-25 12:42 | Outpatient (CLI) | payer OTHER, SELFPAY ==
[2023-03-25 12:59] VITALS: BP 125/68; PULSE 88; TEMP 37
[2023-03-25 13:21] VITALS: BP 125/68; PULSE 88
[2023-03-25 14:15] LABS: ROM Plus Negative
[2023-03-25 14:16] LABS: Fetal Fibronectin Negative (Negative)
--- NOTE | 2023-03-25 15:27 | W.OBNST ---
Date of service: 03/25/23 Time of Service: 15:27 NST Evaluation Reason for NST Reasons for Nonstress Test: LABOR Gestational Age Gestational Age in Weeks and Days: 26 Weeks and 6Days Test and Monitor Explained Test/Monitor Explained: Test Explained, Monitor Explained and Patient Verbalized Understanding Vital Signs Blood Pressure: 125/68 Pulse: 88 Temperature: 98.6 F NST Information Date on Monitor: 03/25/23 Time on Monitor: 12:55 Date off Monitor: 03/25/23 Time off Monitor: 13:33 Total Time on Monitor: 38 NST Interventions: None NST Evaluation Patient States Movement: Present FHR Baseline: 145 Variability: Moderate 6-25 bpm Accelerations: 15x15 Decelerations: None NST Results: Reactive Note Ultrasound Done: N/A. NST Note Note: Pt had a reactive NST Vaginal pathogen screen collected, neg fFN collected, neg Rom Plus collected, neg Warning sings and when to call reviewed No contractions and no signs of labor NST Reviewed and Verified by: Adriane Abdi
[2023-03-25 15:30] VITALS: BP 125/68; PULSE 88; TEMP 37
== END 2023-03-25 14:44 | disposition home or self-care (01) ==
LOC: BCD 12:42 → OBS 12:58 → BCD 12:59 → OBS 13:00
PROVIDERS: PCP Nurse Practitioner Family; Visit Provider Advanced Practice Midwife
DX: O60.02 Preterm labor without delivery, second trimester (principal); Z3A.26 26 weeks gestation of pregnancy
CPT/HCPCS: 84112; 59025; 82731; 87480; 87510; 87660

== ENCOUNTER 2023-04-01 01:43 | Outpatient (CLI) | payer OTHER, SELFPAY ==
--- NOTE | 2023-04-01 07:30 | DI.US_ITS ---
Exam(s) US OB SOREN WEIGHT EXAM: US OB SOREN WEIGHT CLINICAL HISTORY: growth, SOREN and placenta location,O43.199,O44.42. TECHNIQUE: Transabdominal obstetrical ultrasound was performed. COMPARISON: US US OB 2-3 TRIMESTER from 02/05/2023 FINDINGS: There is a single viable intrauterine gestation with cardiac activity identified-134 bpm The fetus is presently in cephalic position . Amniotic fluid: There is a normal amount of amniotic fluid with an SOREN of 10.73cm. Placental location: The placenta is posterior grade 1,with no evidence of placenta previa.Distance fr om tip of the placenta to the internal cervical os is 6.[address] this at approximately 28 weeks and 5 days gestational age, implying NAKUL of June 19, 2023. BPD measures 30 weeks and 3 days HC measures 29 weeks and 5 days AC measures 27 weeks and 2 days FL measures 27 weeks and 4 days Estimated weight is 1130 gm-pounds 8 ounces Fetus is at the 35th percentile on the Hadlock scale. IMPRESSION:: Viable intrauterine gestation, as described above. DATA REPOSITORY:
== END 2023-04-01 02:03 ==
LOC: DI 01:43
PROVIDERS: PCP Nurse Practitioner Family; Visit Provider Advanced Practice Midwife
DX: O43.199 Other malformation of placenta, unspecified trimester (principal); O44.42 Low lying placenta NOS or without hemorrhage, second trimester
CPT/HCPCS: 76816

== ENCOUNTER 2023-04-01 02:45 | Outpatient (CLI) | payer OTHER, SELFPAY ==
[2023-04-01 12:39] LABS: HCT 31.4 % (36.0-46.0); HGB 10.8 g/dL (11.2-15.7); MCH 30.2 pg (27.0-33.0); MCHC 34.4 % (32.0-36.0); MCV 88 fL (80-95); MPV 10.2 fL (8.0-11.0); Platelet Count 161 10^3/uL (130-400); RBC 3.58 10^6/uL (3.93-5.22); RDW-SD 41.1 fL; WBC 9.81 10^3/uL (4.4-10.8)
[2023-04-01 13:04] LABS: Glucose,1 Hr (Glucola) 95 mg/dL (80-140)
== END 2023-04-01 02:46 | disposition home or self-care (01) ==
LOC: LBO 02:45
PROVIDERS: Advanced Practice Midwife; PCP Nurse Practitioner Family; Visit Provider Advanced Practice Midwife
DX: Z34.93 Encounter for supervision of normal pregnancy, unspecified, third trimester (principal); Z3A.28 28 weeks gestation of pregnancy
CPT/HCPCS: 36415; 82950; 85027

== ENCOUNTER 2023-05-29 13:50 | Outpatient (REF) | payer OTHER, SELFPAY ==
[2023-05-29 17:34] LABS: *AMPHETAMINES SCREEN URINE Negative (Negative); *BARBITURATES SCREEN URINE Negative (Negative); *BENZODIAZEPINES SCREEN URINE Negative (Negative); Cannabinoids THC Negative (Negative); Cocaine Screen,Urine Negative (Negative); METHADONE URINE SCREEN Negative (Negative); OPIATES URINE SCREEN Negative (Negative)
[2023-05-29 17:35] LABS: Tricyclic Antidepressants Negative (Negative)
[2023-06-04 11:33] LABS: Buprenorphine Negative ng/mL (Cutoff: 5.0); Norbuprenorphine Negative ng/mL (Cutoff: 2.5)
== END 2023-05-29 13:51 | disposition home or self-care (01) ==
LOC: LBN 13:50
PROVIDERS: PCP Nurse Practitioner Family; Visit Provider Advanced Practice Midwife
DX: Z34.93 Encounter for supervision of normal pregnancy, unspecified, third trimester (principal); Z36.85 Encounter for antenatal screening for Streptococcus B; Z3A.36 36 weeks gestation of pregnancy
CPT/HCPCS: 80307; 80348; 87081

== ENCOUNTER 2023-06-12 13:24 | Outpatient (CLI) | payer OTHER, SELFPAY ==
[2023-06-12 13:30] VITALS: BP 121/72; PULSE 81; TEMP 36.7
[2023-06-12 14:11] VITALS: BP 121/72; PULSE 81; TEMP 36.7
--- NOTE | 2023-06-12 14:11 | W.OBNST ---
Date of service: 06/12/23 Time of Service: 14:11 NST Evaluation Reason for NST Reasons for Nonstress Test: OTHER, SEE COMMENT Reason for NST Other: Low Doppler HR in office Gestational Age Gestational Age in Weeks and Days: 38 Weeks and 1Days Test and Monitor Explained Test/Monitor Explained: Test Explained, Monitor Explained and Patient Verbalized Understanding Vital Signs Blood Pressure: 121/72 Pulse: 81 Temperature: 98.1 F NST Information Date on Monitor: 06/12/23 Time on Monitor: 13:16 Date off Monitor: 06/12/23 Time off Monitor: 13:42 Total Time on Monitor: 26 NST Interventions: None NST Evaluation Patient States Movement: Present FHR Baseline: 120 Variability: Marked >25 bpm Accelerations: 15x15 Decelerations: None NST Results: Reactive Note Ultrasound Done: N/A. NST Note NST Reviewed and Verified by: Alesia Singh
== END 2023-06-12 13:42 | disposition home or self-care (01) ==
LOC: BCD 13:27 → OBS 13:29
PROVIDERS: PCP Nurse Practitioner Family; Visit Provider Advanced Practice Midwife
DX: O36.8331 Maternal care for abnormalities of the fetal heart rate or rhythm, third trimester, fetus 1 (principal); Z3A.38 38 weeks gestation of pregnancy
CPT/HCPCS: 59025

== ENCOUNTER 2023-06-29 16:32 | Outpatient (CLI) | payer OTHER, SELFPAY ==
[2023-06-29 17:53] VITALS: BP 130/80; PULSE 76; TEMP 36.6
--- NOTE | 2023-06-30 08:53 | W.OBNST ---
Date of service: 06/29/23 Time of Service: 18:30 NST Evaluation Reason for NST Reasons for Nonstress Test: POSTDATES Gestational Age Gestational Age in Weeks and Days: 40 Weeks and 4Days Test and Monitor Explained Test/Monitor Explained: Test Explained, Monitor Explained and Patient Verbalized Understanding Vital Signs Blood Pressure: 130/80 Pulse: 76 Temperature: 97.9 F NST Information Date on Monitor: 06/29/23 Time on Monitor: 17:22 Date off Monitor: 06/29/23 Time off Monitor: 17:49 Total Time on Monitor: 27 NST Interventions: Notify Provider Contraction Frequency: Occasional NST Evaluation Patient States Movement: Present FHR Baseline: 125 Variability: Moderate 6-25 bpm Accelerations: 15x15 Decelerations: None NST Results: Reactive Note Ultrasound Done: N/A. NST Note Note: Asiya called and requested SVE due to post dates and discomfort. Cervix posterior/closed. Vertex -2. Signs of labor reviewed. RTO 3 days for labor induction. NST Reviewed and Verified by: Cecilia Verma
[2023-06-30 08:54] VITALS: BP 130/80; PULSE 76; TEMP 36.6
== END 2023-06-29 18:10 | disposition home or self-care (01) ==
LOC: BCD 16:32 → OBS 16:34
PROVIDERS: PCP Nurse Practitioner Family; Visit Provider Advanced Practice Midwife
DX: O48.0 Post-term pregnancy (principal); Z3A.40 40 weeks gestation of pregnancy
CPT/HCPCS: 59025

== ENCOUNTER 2023-07-02 09:50 | Inpatient (IN) | payer OTHER, SELFPAY ==
[2023-07-02] VITALS (189 sets, daily range): BP systolic 114–129; BP diastolic 65–78; PULSE 46–100; RESP 16; TEMP 36.6–36.8
--- NOTE | 2023-07-02 11:29 | W.PM.OBHPL1 ---
Date of service: 07/02/23 Time of Service: 11:29 Assessment and Plan Assessment and plan (1) Encounter for induction of labor: Status: Acute Assessment and plan: A: 23 yo G1 @ 41 wks GBS neg, Rh+, kumar score is 5 Admitted for IOL due to postdates Category 1 tracing; historical risks for SD & PPH noted Vulva, vagina, cvx inspected and without visible evidence of HSV P: Options for cervical ripening reviewed, will begin with cervidil Admission procedures and CBC, T&S Continue Valtrex 1 gm daily until delivery Anticipate Dr. Cramer consulting prn (2) 41 weeks gestation of : Status: Acute Assessment and plan: NST today is reactive (3) Genital herpes: Status: Chronic Assessment and plan: Last outbreak @ 33 wks, pt advised daily prophylaxis Qualifiers: Herpes simplex infection site: vulvovaginitis Qualified Code(s): A60.04 - Herpesviral vulvovaginitis OB-HPI Labor/Delivery History of Present Illness Reason for Visit: Rule Out Labor Chief Complaint: Scheduled Induction of Labor Indication for Induction: Post Date. NAKUL Calculator Estimated Delivery Date Method Current WG Current Estimate 06/25/23 Ultrasound #1 41w 0d Other Estimates 06/19/23 LMP (Uncertain) 41w 6d History of Present Expected Delivery Route/Plan - CNM FOB/boyfriend - Bud Grewal (his first) BB yes to circ / GBS neg Rubella & Varicella Non-Immune, offer vaccines Bud for labor support Prefers no epidural Specific Issues/Plan 1. History of anxiety and depression - discontinued medications with 2. HSV II+, on Valtrex. HSV outbreak at 33 wks: Valtrex daily Rx refilled 3. Declines SMA and AFP only. Desires cfDNA LR, male 4. Rubella & Varicella non-immune, discussed w/pt, will have vaccines 5. Daily headaches and loud heartbeat sound in her left ear. Seen by PCP. ENT consult recommended magnesium daily, start 03/05. 6. Itching under breasts and lower abdomen- medicated powder recommended-. 7. Low lying placenta and marginal insertion, repeat US at 28 weeks resolved 7a. Growth US 04/01 EFW 35% SOREN 10.73 Assessment: History Reviewed & Current Informed Consent Informed Consent: Induction of Labor and Risk,Benefits,Alternatives Discussed Review of Systems Narrative: ROS completed and found to be noncontributory other then HPI PFSH All Active Problems (Updated 07/02/23 @ 11:48 by Alesia Singh) 41 weeks gestation of (Acute) Encounter for induction of labor (Acute) Susceptible to varicella (non-immune), currently (Acute) Rubella non-immune status, antepartum (Acute) Generalized anxiety disorder (Acute) Genital herpes (Chronic) Medical History (Updated 07/02/23 @ 11:48 by Alesia Singh) Arthralgia Back pain Chronic right flank pain COVID-19 10/2021-associated with URI and bronchospasm Depressive disorder Genital herpes simplex virus (HSV) infection in mother affecting History of depression Labral tear of shoulder Macular dystrophy Right eye, followed by [facility] Pulsatile tinnitus of left ear Surgical History No significant past surgical history Family History Mother Asthma Alcohol abuse Depression Colon cancer Father Bipolar disorder Alcohol abuse Sister Alcohol abuse Depression Brother No problems noted. Brother Alcohol abuse Maternal Grandfather , at 63 Brain cancer Depression Heart disease Hyperlipidemia Hypertension Type 2 diabetes mellitus Maternal Grandmother Depression Hyperlipidemia Breast cancer diagnosed age 70 Paternal Grandfather , at 52 Brain cancer Type 2 diabetes mellitus Alcohol abuse Heart disease Hyperlipidemia Hypertension Paternal Grandmother , 50s Alcohol abuse Lung cancer Depression Social History Smoking/Tobacco Use Status: Never Smoking risk assessment performed?: Yes Alcohol Intake: current Alcohol Intake frequency: a few times a month Drug use: Daily Substance use type: marijuana Caregiver/Support person: No Household members: family Housing: house Communication Needs: None Do you need help understanding health information?: Never Pets and animals: Yes Pets and animals: cat(s) Sexually active: Yes Do you think of yourself as: bisexual Current gender identity: female What is your relationship status?: never How often do you talk on the phone with friends or family?: three or more times per week How often do you get together with friends or relatives?: three or more times per week How often do you attend evangelical or buddhist services?: decline to answer Do you belong to any clubs or organized social groups?: no Panel score (0-1 are the most socially isolated patients): 1 What type of physical activity do you participate in: decline to answer Duration: 30-45 minutes/day Frequency: 3-4 times per week Dawn/Adventist: None Special dawn needs: No Seatbelt use: sometimes Helmet use: Yes Helmet use: sometimes Drive intox or ride w/intox cat driver: No Do you feel safe at home: Yes Do you feel safe in your relationship?: Yes Female Reproductive History Menstrual control method: pills History History 1 Para 0 Hx # Term Pregnancies 0 Multiple births 0 Hx # Pregnancies 0 Ectopic pregnancies 0 AB induced 0 Hx Number of Living Children 0 AB spontaneous 0 Meds Allergies and Home Medications Allergies Allergy/AdvReac Type Severity Reaction Status Date / Time nickel AdvReac Unknown Skin Rash Verified 06/25/23 09:53 Home Medications Medication Instructions Recorded Confirmed Type prenat.vits,faith,sgp-yidx-mlhjd 1 tab PO DAILY 11/08/22 07/02/23 History ferrous sulfate 325 mg (65 mg 325 mg PO DAILY #60 tabs 04/01/23 07/02/23 Rx iron) tablet magnesium 200 mg tablet 200 mg PO DAILY 04/30/23 07/02/23 History valacyclovir 1 gram tablet 1,000 mg PO DAILY PRN herpes 05/09/23 07/02/23 Rx outbreak #60 tabs Exam Physical Exam Vital Signs Reviewed: Yes Constitutional Constitutional: no acute distress, average body habitus and cooperative Detailed Labor and Delivery Exam Dilation: 1 Effacement (%): 70 station: -3 Cervix position: posterior Consistency: soft KUMAR Score(Cervical Ripeness Score): 5 Amniotic Membrane Status: Intact Contraction Frequency(min): rare Contraction Intensity: Mild Fetus A Heart Rate Baseline: 130 Monitor Accelerations: 15 X 15 Monitor Decelerations: None Variability: Moderate (6-25 BPM) Categories: Category I Est. Weight: 7 lb 4.404 oz Est. Weight: 3300 gms HEENT Exam HEENT Exam: Normal Neck Exam Neck Exam: Normal Chest/Brest/Axilla Exam Chest Exam: Normal Breast Exam Breast Exam: Not Done Respiratory Exam Respiratory Exam: Normal Cardiovascular Exam Cardiovascular Exam: Normal Abdominal Exam Abdominal Exam: Normal (Gravid, nontender) Rectal Exam Rectal Exam: Normal Exam Exam: Normal Extremities Exam Extremities Exam: Normal Back/Spine/Pelvis Exam Back Exam: Normal Pelvis Adequate: Yes Skin Exam Skin Exam: Normal Neurological Exam Neurological Exam: Normal Psychiatric Exam Psychiatric Exam: Normal Results Results Group Beta Strep: Negative Blood Type: B+ Rubella Status: Nonimmune Varicella Immunity: Nonimmune Risk Assessment Risk for Shoulder Dystocia Historical/Initial OB: NEGATIVE FOR: Pelvic Abnormality, Pre- BMI>30, Previous Shoulder Dystocia or Previous Macrosomia 36 Weeks: NEGATIVE FOR: Current Gestational DM, EFW>4500gms or Maternal Weight Gain>40lbs 40 Weeks: POSTIVE FOR: Post Dates; NEGATIVE FOR: EFW> 4500 gms or Maternal Weight Gain >40lb Increased Risk?: Yes Date/Initial: 12/03/22 Delivery Plan @ 40 wks: IOL after 41 wks, increased risk due to postdate and primiparous status, EFW 3300 gms with adequate pelvis Risk for Pre-Eclampsia Daily Dose ASA Indicated: No Yes, if one or more: NEGATIVE FOR: Hx Pre-E/Gest HTN, Chronic HTN, Multiple Gestation, Pre-gestational DM, Renal Disease, Systemic Lupus or APA Syndrome Yes, if 2 or more: POSITIVE FOR: Nulliparity; NEGATIVE FOR: Age>= 35 yrs, >10yr btwn pregnancies, BMI>30, ethinicty, Mother/Sister w/ Pre-E or Previous IUGR Risk for Post- Hemorrhage Initial: NEGATIVE FOR: Multiple Gestation, Previous PPH, Known Clotting Deficiency, Grand Multiparity or Anticoagulation 36 Weeks: NEGATIVE FOR: Anemia, hgb<10, Low platelets(thrombocytopenia), Gestational HTN or Pre-E, Polyhydraminios or EFW>4500gms 40 Weeks: NEGATIVE FOR: Anemia, hgb<10, Low platelets (thrombocytopenia), Gestation HTN or Pre-E, Polyhydraminios or EFW>4500gms At Risk?: Yes (increased risk due to IOL process) Counseled re: Active Management: Yes Risks Reviewed Risks Reviewed Upon Admission: Yes
[2023-07-02 11:41] LABS: HGB 11.9 g/dL (11.2-15.7); MCH 28.7 pg (27.0-33.0); MCV 85 fL (80-95); MPV 10.6 fL (8.0-11.0); Platelet Count 157 10^3/uL (130-400); RBC 4.14 10^6/uL (3.93-5.22); RDW 13.9 % (11.7-14.6); RDW-SD 42.5 fL; WBC 10.05 10^3/uL (4.4-10.8)
[2023-07-02] MEDS: Dinoprostone-CERVICAL 10 MG VSUPP VG (13:00)
--- NOTE | 2023-07-02 20:37 | W.PM.OBNL1 ---
Date of service: 07/02/23 Time of Service: 20:37 Informed Consent Informed Consent: Induction of Labor and Risk,Benefits,Alternatives Discussed Pelvic Exam Comments: deferred Contractions Monitor Mode: External Contraction Frequency(min): irreg, 1-2 in 10 minutes Intensity: Mild Fetus A Heart Rate Baseline: 135 Variability: Moderate (6-25 BPM) Categories: Category I Amniotic Membrane Status: Intact Assessment and Plan Assessment and plan (1) Encounter for induction of labor: Status: Acute Assessment and plan: A: IOL for postdates, cervidil inserted 1300 Overall category 1 tracing, rare variable decel noted Pt tolerating contractions well P: Remove cervidil @ 0100 per protocol Encourage rest/sleep, monitor for sx of progress Continue cvx ripening vs AROM vs pitocin in morning Objective Abnormal lab results 07/02/23 Range/Units 11:32 Hct 35.0 L (36.0-46.0) % Temp Pulse Resp BP 98.2 F 77 16 129/70 07/02/23 20:13 07/02/23 20:36 07/02/23 20:13 07/02/23 20:13 Laboratory Results WBC 10.05 10^3/uL (4.4-10.8) 07/02/23 11:32 RBC 4.14 10^6/uL (3.93-5.22) 07/02/23 11:32 Hgb 11.9 g/dL (11.2-15.7) 07/02/23 11:32 Hct 35.0 % (36.0-46.0) L 07/02/23 11:32 MCV 85 fL (80-95) 07/02/23 11:32 MCH 28.7 pg (27.0-33.0) 07/02/23 11:32 MCHC 34.0 % (32.0-36.0) 07/02/23 11:32 RDW 13.9 % (11.7-14.6) 07/02/23 11:32 Plt Count 157 10^3/uL (130-400) 07/02/23 11:32 MPV 10.6 fL (8.0-11.0) 07/02/23 11:32 Patient ABO/Rh B Positive 07/02/23 11:32 Antibody Screen POSITIVE 07/02/23 11:32 Vital Signs Reviewed: Yes Subjective Interval history since last seen: Ambulated in room and has rested, partner bedside for support, generally comfortable though reports increase in cramps through the evening. Tolerating PO intake well but has reduced appetite. Voiding qs.
[2023-07-03] VITALS (47 sets, daily range): BP systolic 100–142; BP diastolic 51–95; PULSE 63–116; RESP 14–18; TEMP 36.4–37; O2SAT 99–100
--- NOTE | 2023-07-03 08:32 | W.PM.OBNL1 ---
Date of service: 07/03/23 Time of Service: 08:32 Informed Consent Informed Consent: Induction of Labor and Risk,Benefits,Alternatives Discussed Pelvic Exam Dilation: 3 Effacement (%): 80 station: -3 Cervix Position: mid Consistency: soft BISHOPS Score(Cervical Ripeness Score): 8 Assessment and Plan Assessment and plan (1) Encounter for induction of labor: Status: Acute Assessment and plan: A: Terry score advanced to 8 after cervidil Pt tolerating PO intake and discomforts well To have shower & breakfast P: Options discussed with pt, Will further cvx ripening w/misoprostel x1, consider AROM Anticipate Objective Vital Signs Reviewed: Yes Subjective Interval history since last seen: Restless night due to cramping but was able to sleep without medication, this morning she continues to feel cramps and contractions occasionally that are painful. Options discussed, pt chooses to proceed with continuation of IOL.
[2023-07-03] MEDS: valACYclovir 1,000 MG TAB 1000 MG PO (09:20)
[2023-07-03] MEDS: miSOPROStol 50 MCG TAB PO (10:09)
--- NOTE | 2023-07-03 15:24 | W.PM.OBNL1 ---
Date of service: 07/03/23 Time of Service: 14:20 Informed Consent Informed Consent: Risk,Benefits,Alternatives Discussed and Other (Pt consents to AROM) Pelvic Exam Dilation: 4 Effacement (%): 90 station: -2 Cervix Position: mid BISHOPS Score(Cervical Ripeness Score): 9 Contractions Monitor Mode: External Contraction Frequency(min): q5-7 min Intensity: Moderate Fetus A Monitor: External (US) Heart Rate Baseline: 135 Variability: Moderate (6-25 BPM) Categories: Category I Accelerations: 15 X 15 Decelerations: None Amniotic Membrane Status: Ruptured Rupture Method: Artifical Amniotic Fluid: Clear Amount: small Date of Membrane Rupture: 07/03/23 Time of Membrane Rupture: 14:11 Assessment and Plan Assessment and plan (1) Encounter for induction of labor: Status: Acute Assessment and plan: A: Entering active labor Pt continues to cope well Category 1 tracing P: Monitor for progress, pitocin augmentation if indicated Dr. Cramer updated on pt status Anticipate Objective Vital Signs Reviewed: Yes Objective Narrative Objective Narrative: Pt ambulating in room, appears comfortable Vital signs are stable, category 1 tracing Progress to 4 cm after cervidil x12 hrs & 50 mcg misoprostel PO x1 Informed consent for AROM completed FOB bedside for support
--- NOTE | 2023-07-03 19:58 | PGE_ITS ---
Date of service: 07/03/23 Time of Service: 19:58 Informed Consent Informed Consent: Augmentation of Labor, Regional Anesthesia and Risk,Benefits,Alternatives Discussed Pelvic Exam Dilation: 6.5 Effacement (%): 100 station: -1 Position: ROP Cervix Position: mid Contractions Monitor Mode: Palpation Contraction Frequency(min): q3-4 Intensity: Moderate Fetus A Monitor: Doppler Heart Rate Baseline: 135 FHR Rhythm: Regular Characteristics: Normal Amniotic Membrane Status: Ruptured Assessment and Plan Assessment and plan (1) Encounter for induction of labor: Status: Acute Assessment and plan: A: Active labor after IOL for postdates Clear fluid and category 1 tracing Inadequate contraction pattern w/slow progress Need for pain management P: Start IVF, [facility] paged Will begin pitocin augmentation when pt more comfortable Dr. Cramer given status update Objective Temp Pulse Resp BP Pulse Ox 97.8 F 81 18 133/80 99 07/03/23 19:14 07/03/23 19:14 07/03/23 19:14 07/03/23 19:14 07/03/23 19:14 Laboratory Results WBC 10.05 10^3/uL (4.4-10.8) 07/02/23 11:32 RBC 4.14 10^6/uL (3.93-5.22) 07/02/23 11:32 Hgb 11.9 g/dL (11.2-15.7) 07/02/23 11:32 Hct 35.0 % (36.0-46.0) L 07/02/23 11:32 MCV 85 fL (80-95) 07/02/23 11:32 MCH 28.7 pg (27.0-33.0) 07/02/23 11:32 MCHC 34.0 % (32.0-36.0) 07/02/23 11:32 RDW 13.9 % (11.7-14.6) 07/02/23 11:32 Plt Count 157 10^3/uL (130-400) 07/02/23 11:32 MPV 10.6 fL (8.0-11.0) 07/02/23 11:32 Patient ABO/Rh B Positive 07/02/23 11:32 Antibody Screen POSITIVE 07/02/23 11:32 Antibody Identification Anti-C 07/02/23 11:32 Vital Signs Reviewed: Yes Objective Narrative Objective Narrative: Pt has ambulated, used nitrous, and soaked in the labor tub for an hour Dilation & descent is progressing though slowly, contraction pattern inadequate Pt requests epidural prior to pitocin augmentation Subjective Interval history since last seen: Contractions are quite painful, pt reports she is very tired.
[2023-07-03] MEDS: Lactated Ringers 1,000 ML 125 ML IV (20:21)
[2023-07-03] MEDS: Normal Saline Flush 10 ML SYR IVP (20:23)
[2023-07-03] MEDS: Oxytocin/Normal Saline 30 UNIT/500 ML BAG 2 UNITS IV (20:23)
--- NOTE | 2023-07-03 21:28 | W.ANESNEU ---
Epidural/Spinal Catheter Date Performed: 07/03/23 Procedure Start: 20:49 Procedure Stop: 21:15 Requesting Provider: Alesia Singh Procedure Location: Obstetrics (Rm: [phone]) Reason Performed: Labor Epidural Standard Monitors Applied: ECG, Blood Pressure, SpO2 and See EMR for corresponding vital signs Patient Position: Sitting Sedation Given (Indicate Dose Given): No Sedation given Patient Mental Status: Awake Sterility: Hand Hygiene, Surgical Cap, Surgical Mask, Sterile Gloves, Sterile Drape/Sheet, Eye Protection and Chlorhexidine Procedure Location: L3-L4 Interspace Epidural Needle: Tuohy 18 Gauge Needle Length: 3.5 Inch Needle Approach: Midline Epidural Procedure: Skin Prepped, Sterile Drape Placed, 1% Lidocaine to skin and subcutaneous tissue with 25G needle, Tuohy Needle placed, ANNABEL to Saline Used, Negative Heme and Negative CSF Flow Catheter Placed?: Catheter Placed Test Dose (Indicate Dose Given): 3ml 1.5% Lidocaine with 1:200K Epinephrine Given and Negative Test Dose (HR: 90's) Loss of Resistance Depth (cm): 55 Catheter depth at skin (cm): 12 Dressing: Tegaderm Applied and Dressing reinforced with Tape Epidural Provider Bolus (Indicate Dose Given): Total Ropivacaine 0.1% Given (ml) Dose:: .1%/7cc (7mg) Additives (Indicate Dose Given ): Fentanyl PF Dose:: 14mcg Infusion Medication: Medication Infusion Began Medication Infusion: Ropivacaine 0.1% with Fentanyl 2mcg/ml (10cc/hour) Maintenance Infusion Rate (ml/hour): 10 PCEA Bolus Dose (ml): 5 Block Level: T8 Paresthesia: None Ultrasound: Used to shasha site Number of Attempts (See previous attempts in note section): 1 Procedure Tolerated: No Complications and Patient tolerated well Procedure Outcome: Successful Performed By: Fred Ac
--- NOTE | 2023-07-03 23:17 | W.PM.OBNL1 ---
Date of service: 07/03/23 Time of Service: 23:17 Informed Consent Informed Consent: Augmentation of Labor, Regional Anesthesia and Risk,Benefits,Alternatives Discussed Pelvic Exam Dilation: 7 Effacement (%): 100 station: -1 Contractions Monitor Mode: External Contraction Frequency(min): q3-4 Intensity: Moderate/Strong Fetus A Monitor: Internal (FSE) Heart Rate Baseline: 135 Variability: Moderate (6-25 BPM) Categories: Category II Accelerations: 15 X 15 Decelerations: Early and Variable Recurrence: Recurrent Amniotic Membrane Status: Ruptured Assessment and Plan Assessment and plan (1) 41 weeks gestation of : Status: Acute Assessment and plan: A: Epidural anesthesia; normotensive 122/60 Pitocin stopped for poor tolerance 7/100% vtx-1 P: Maternal position changes Pitocin remains off d/t recurrent variables to 80's Dr. Cramer notified of category 2 tracing & en route Objective Vital Signs Reviewed: Yes Objective Narrative Objective Narrative: Epidural has been effective, pt more relaxed Cat 2 tracing due to prolonged decel about 2 minutes duration Subsequent variable and early decels, resolving at end of contraction Pitocin started 2130, up to 6 mu/min, turned off with decel @ 2239 scalp lead placed, pt currently in H&K using CUB for upper body support ROM x9 hrs Subjective Interval history since last seen: Pt can feel when she has contractions but they are not painful. Feeling shakey.
[2023-07-04] VITALS (25 sets, daily range): BP systolic 107–133; BP diastolic 56–80; PULSE 70–129; RESP 16–18; TEMP 36.6–37.2; O2SAT 93–100; BMI 34.0
[2023-07-04] MEDS: Terbutaline 1 MG/ML VIAL 0.25 MG SC (00:36)
--- NOTE | 2023-07-04 00:41 | OBCE_ITS ---
Date of service: 07/04/23 Time of Service: 00:41 Assessment and Plan Assessment and plan (1) 41 weeks gestation of : Status: Acute Assessment and plan: Patient postdates induction with subsequent intolerance of labor and deep decelerations with uterine activity. Decision was made to proceed with primary section. Patient informed, full informed consent obtained. Appropriat e antibiotic prophylaxis to be performed with Ancef and Zithromax. Goodman catheter for continuous bladder drainage. OR crew and anesthesia notified. (2) Encounter for induction of labor: Status: Acute (3) intolerance to labor, delivered, current hospitalization: Status: Acute History of Present Illness History of Present Illness Chief Complaint: intolerance of labor Narrative: Currently asked to see in consultation this 23-year-old primigravida who has a postdates induction. During the course of her labor induction, after her epidural placement, she had intolerance of labor with decelerations to the 70s to 90s with uterine activity. She was normotensive throughout this. She had position change, IV bolus, cervical exams, and discontinuation of her pr evious Pitocin, and persistent deep decelerations. Initially when I presented to the floor, risk benefits alternatives of continuing with Pitocin with the OR crew in-house versus operative delivery were all discussed with patient. Do to fact that the baby continued to have deep decelerations without Pitocin augmentation, the decision was made to proceed with section. Full informed consent was obtained. Consults Consult date: 07/04/23 Requesting physician: Alesia Singh Review of Systems Narrative: Anxious, comfortable with epidural Constitutional Constitutional: Reports as per HPI Eyes Eyes: Reports system reviewed and no additional complaints, except as documented ENT Ears, Nose, Mouth, and Throat: Reports system reviewed and no additional complaints, except as documented Cardiovascular Cardiovascular: Reports system reviewed and no additional complaints, except as documented Respiratory Respiratory: Reports system reviewed and no additional complaints, except as documented Gastrointestinal Gastrointestinal: Reports system reviewed and no additional complaints, except as documented Genitourinary Genitourinary: Reports system reviewed and no additional complaints, except as documented PFSH All Active Problems (Updated 07/04/23 @ 00:48 by Desiree Cramer DO) intolerance to labor, delivered, current hospitalization (Acute) 41 weeks gestation of (Acute) Encounter for induction of labor (Acute) Susceptible to varicella (non-immune), currently (Acute) Rubella non-immune status, antepartum (Acute) Generalized anxiety disorder (Acute) Medical History (Updated 07/04/23 @ 00:48 by Desiree Cramer DO) Arthralgia Back pain Chronic right flank pain COVID-19 10/2021-associated with URI and bronchospasm Depressive disorder Genital herpes Genital herpes simplex virus (HSV) infection in mother affecting History of depression Labral tear of shoulder Macular dystrophy Right eye, followed by [facility] Pulsatile tinnitus of left ear Surgical History No significant past surgical history Family History Mother Asthma Alcohol abuse Depression Colon cancer Father Bipolar disorder Alcohol abuse Sister Alcohol abuse Depression Brother No problems noted. Brother Alcohol abuse Maternal Grandfather , at 63 Brain cancer Depression Heart disease Hyperlipidemia Hypertension Type 2 diabetes mellitus Maternal Grandmother Depression Hyperlipidemia Breast cancer diagnosed age 70 Paternal Grandfather , at 52 Brain cancer Type 2 diabetes mellitus Alcohol abuse Heart disease Hyperlipidemia Hypertension Paternal Grandmother , 50s Alcohol abuse Lung cancer Depression Social History Smoking/Tobacco Use Status: Never Smoking risk assessment performed?: Yes Alcohol Intake: current Alcohol Intake frequency: a few times a month Drug use: Daily Substance use type: marijuana Details: Stopped at discovery of Caregiver/Support person: No Household members: family Housing: house Communication Needs: None Do you need help understanding health information?: Never Pets and animals: Yes Pets and animals: cat(s) Sexually active: Yes Do you think of yourself as: bisexual Current gender identity: female What is your relationship status?: never How often do you talk on the phone with friends or family?: three or more times per week How often do you get together with friends or relatives?: three or more times per week How often do you attend jehovah's witness or orthodoxy services?: decline to answer Do you belong to any clubs or organized social groups?: no Panel score (0-1 are the most socially isolated patients): 1 What type of physical activity do you participate in: decline to answer Duration: 30-45 minutes/day Frequency: 3-4 times per week Dawn/Buddhist: None Special dawn needs: No Seatbelt use: sometimes Helmet use: Yes Helmet use: sometimes Drive intox or ride w/intox regional owner operator truck driver: No Do you feel safe at home: Yes Do you feel safe in your relationship?: Yes Female Reproductive History Menstrual control method: pills History History 1 Para 0 Hx # Term Pregnancies 0 Multiple births 0 Hx # Pregnancies 0 Ectopic pregnancies 0 AB induced 0 Hx Number of Living Children 0 AB spontaneous 0 Exam Const General: cooperative, healthy appearing, comfortable and anxious HENMT Head: normal to inspection Neck Neck: normal visual inspection and supple Resp Effort & Inspection: normal respiratory effort and no cough Cardio Rate: regular rate Rhythm: regular rhythm Heart Sounds: S1 normal and S2 normal Manual OB Exam: dilated 8, effaced 75% and station -2 Results Last Vital Signs Temp 98.1 F 07/03/23 22:26 Pulse 93 H 07/04/23 00:33 Resp 18 07/03/23 19:14 BP 124/65 07/04/23 00:33 Pulse Ox 99 07/03/23 21:03 Labs 07/02/23 11:32 Labs: Laboratory Results - last 24 hr 07/02/23 11:32 Antibody Identification Anti-C
[2023-07-04] MEDS: AZITHROMYCIN 500 MG in Normal Saline 250 ML 250 MG IVPB (00:51)
[2023-07-04] MEDS: Sodium Citrate 30 ML CUP PO (00:52)
[2023-07-04] MEDS: ceFAZolin 2 GM/50 ML BAG IVPB (01:31)
[2023-07-04] MEDS: Lactated Ringers 1,000 ML 125 ML IV (02:00)
--- NOTE | 2023-07-04 02:10 | W.ANESNEU ---
Epidural/Spinal Cath. Removal Date Performed: 07/04/23 Procedure Time: 01:25 Catheter Removal Type: Epidural Catheter Procedure Location: Operating Room Patient Position: Sitting Catheter Removal Procedure: Dressing Removed, Catheter Removed without Resistance and Catheter Tip Intact Paresthesia: None Procedure Tolerated: No Complications and Patient tolerated well Procedure Outcome: Successful Performed By: Fred Ac
--- NOTE | 2023-07-04 02:12 | ANES.PREOP_ITS ---
General Info Date of Service Date Performed: 07/04/23 Height: 5 ft 8 in Weight: 101.605 kg Body Mass Index (BMI): 34.0 Surgical Procedure: Operation Date: 07/04/23 01:05 Proposed Procedure Side Surgeon p Section Desiree Cramer DO Actual Procedure Side Surgeon p Section Not Applicable Desiree Cramer DO Pre-Op Diagnosis Post-Op Diagnosis intolerance to labor intolerance to labor Meds Allergies and Home Medications Allergies Allergy/AdvReac Type Severity Reaction Status Date / Time nickel AdvReac Unknown Skin Rash Verified 06/25/23 09:53 Home Medication Medication Instructions Recorded prenat.vits,faith,yzu-[id number] 1 tab PO DAILY 11/08/22 ferrous sulfate 325 mg (65 mg 325 mg PO DAILY #60 tabs 04/01/23 iron) tablet magnesium 200 mg tablet 200 mg PO DAILY 04/30/23 valacyclovir 1 gram tablet 1,000 mg PO DAILY PRN herpes 05/09/23 outbreak #60 tabs Current Visit Medications: Current Medications Generic Name Dose Route Start Last Admin Trade Name Freq PRN Reason Stop Dose Admin Citric Acid/Sodium Citrate 30 ml 07/04/23 01:00 07/04/23 00:52 Sodium Citrate 30 Ml Cup PO 30 ml PREOP AMAYA Administration Diphenhydramine HCl 25 mg 07/03/23 21:40 Diphenhydramine 50 Mg/Ml Vial IVP Q6H PRN PRN Persistent pruritis face/trunk Ephedrine Sulfate 5 mg 07/03/23 21:40 Ephedrine 50 Mg/Ml Vial IVP DIRECTED PRN Fentanyl/Ropivacaine 200 ml 07/03/23 20:15 Fentanyl/Ropivacaine 2 Mcg/Ml And 0.1% 200 Ml [place] EP DIRECTED AMAYA Fentanyl/Ropivacaine 200 ml 07/03/23 21:45 Fentanyl/Ropivacaine 2 Mcg/Ml And 0.1% 200 Ml Cadd Cassette EP DIRECTED AMAYA Ringer's Solution 1,000 mls @ 125 mls/hr 07/03/23 20:00 07/03/23 20:21 IV 125 mls/hr INFUSION AMAYA Administration Sodium Chloride 500 mls @ 0 mls/hr 07/03/23 19:56 Saline 500ml Bag IV PRN PRN As Directed Oxytocin/Sodium Chloride 30 unit in 500 mls @ 2 mls/hr 07/03/23 20:00 07/03/23 22:14 Pitocin/Normal Saline IV 6 milliunits/min INFUSION AMAYA 6 mls/hr Titration Protocol 2 MILLIUNITS/MIN Naloxone HCl 2 mg/ Sodium 500 mls @ 12.701 mls/hr 07/03/23 21:40 Chloride IV INFUSION PRN pruritis 0.5 MCG/KG/HR Nalbuphine HCl 5 mg/ Sodium 50.5 mls @ 100 mls/hr 07/03/23 21:40 Chloride IVPB Q3H PRN PRN Pruritis Cefazolin Sodium/Dextrose 2 gm in 50 mls @ 100 mls/hr 07/04/23 00:45 Ancef Duplex IVPB PREOP AMAYA Azithromycin 500 mg/ Sodium 250 mls @ 250 mls/hr 07/04/23 00:45 07/04/23 00:51 Chloride IVPB 250 mls/hr PREOP AMAYA Administration IV Miscellaneous Supplies 1 each 07/03/23 20:00 Iv Access IV DIRECTED AMAYA Naloxone HCl 0 mg 07/03/23 21:40 Naloxone 0.4 Mg/Ml Vial IVP DIRECTED PRN Ondansetron HCl 4 mg 07/03/23 21:40 Ondansetron 4 Mg/2 Ml Vial IVP Q6H PRN PRN Nausea Sodium Chloride 0 ml 07/03/23 19:56 07/03/23 20:23 Normal Saline Flush 10 Ml Syr IVP 10 ml PRN PRN Administration Terbutaline Sulfate 0.25 mg 07/02/23 11:15 07/04/23 00:36 Terbutaline 1 Mg/Ml Vial SC 0.25 mg PRN PRN Administration Valacyclovir HCl 1,000 mg 07/02/23 11:30 07/03/23 09:20 Valacyclovir 1,000 Mg Tab PO 1,000 mg DAILY AMAYA Administration Zolpidem Tartrate 5 mg 07/02/23 20:35 Zolpidem 5 Mg Tab PO HS PRN PRN PFSH Active Problems Active Problems: Problem Status Onset Code intolerance to labor, delivered, current hospitalization O77.9 41 weeks gestation of O48.0, Z3A.41 Encounter for induction of labor Z34.90 Susceptible to varicella (non-immune), currently O09.899, Z28.39 Rubella non-immune status, antepartum O09.899, Z28.39 Generalized anxiety disorder F41.1 Medical History Medical History (Updated 07/04/23 @ 00:48 by Desiree Cramer DO) Arthralgia Back pain Chronic right flank pain COVID-19 10/2021-associated with URI and bronchospasm Depressive disorder Genital herpes Genital herpes simplex virus (HSV) infection in mother affecting History of depression Labral tear of shoulder Macular dystrophy Right eye, followed by [facility] Pulsatile tinnitus of left ear Surgical History Surgical History No significant past surgical history Tobacco Smoking/Tobacco Use Status: Never Passive smoking exposure: Yes Alcohol Alcohol Intake: current Alcohol intake frequency: a few times a month Substance Use Substance use: Daily Substance use type: marijuana Details: Stopped at discovery of P[place] History History 1 Para 0 Hx # Term Pregnancies 0 Multiple births 0 Hx # Pregnancies 0 Ectopic pregnancies 0 AB induced 0 Hx Number of Living Children 0 AB spontaneous 0 Vital Signs and Lab Results Vital Signs Most Recent Vital Signs in EMR: Most Recent Vital Signs Temp Pulse Resp BP Pulse Ox 36.7 C 129 H 18 133/74 99 07/03/23 22:26 07/04/23 01:03 07/03/23 19:14 07/04/23 01:03 07/03/23 21:03 Lab Results 07/02/23 11:32 Blood Type / Crossmatch: Patient ABO/Rh B Positive 07/02/23 Antibody Screen POSITIVE 07/02/23 Complete Blood Count: White Blood Count 10.05 10^3/uL (4.4-10.8) 07/02/23 11:32 Red Blood Count 4.14 10^6/uL (3.93-5.22) 07/02/23 11:32 Hemoglobin 11.9 g/dL (11.2-15.7) 07/02/23 11:32 Hematocrit 35.0 % (36.0-46.0) L 07/02/23 11:32 Platelet Count 157 10^3/uL (130-400) 07/02/23 11:32 Complete Metabolic Panel: No Data to Display Liver Function Panel: No Data to Display Coagulation Panel: No Data to Display Cardiac Panel: No Data to Display Arterial Blood Gas: No Data to Display Venous Blood Gas: No Data to Display Pancreas Panel: No Data to Display Thyroid Panel: No Data to Display Infectious Disease: No Data to Display Blood Cultures: No Data to Display Toxicology Panel: No Data to Display Panel: No Data to Display Anesthesia Assessment and Plan Anesthesia History Personal History: No History of Anesthesia Complications Family History: No Family History of Anesthesia Complications Exercise Tolerance Exercise Tolerance: Metabolic Equivalents>4 Pertinent Negatives Pertinent Negatives: No Symptoms of GERD Cardiac & Pulmonary Exam Cardiac Exam: Normal S1/S2 Heart Sounds Pulmonary Exam: Clear Bilateral Breath Sounds Implantable Cardiac Device Does patient have a Pacemaker or an ICD?: No Airway Exam Known Difficult Airway: No Mallampati Class: 2 Mouth Opening: Normal (> 3cm) Thyromental Distance: Greater than 3 cm Neck Range of Motion: Full ROM Neck Circumference: Normal Teeth Condition: Normal Dentition ASA Classification ASA Score: ASA 2 Emergency Case?: Yes NPO Status NPO Status: NPO Clear Liquids>2 hours Status Status: Confirmed Anesthesia Plan Resuscitation Status: Full Code Anesthesia Technique: Spinal Anesthesia Airway Planned: Natural Airway Pain Management: Intrathecal Analgesia Monitors Used: Standard Monitors
[2023-07-04] MEDS: Bupivacaine 0.25% Pres-Free 30 ML VIAL (02:14)
--- NOTE | 2023-07-04 02:32 | W.PM.OBCSECT ---
Date of service: 07/04/23 Time of Service: 02:32 Operative Note Operative Note Delivery Method: Unscheduled STAT: No and Primary NTSV>37 Weeks: Yes DATE OF PROCEDURE: 07/04/23 PRE-OP DIAGNOSES: at 41 weeks. Failed induction. intolerance of labor POST-OP DIAGNOSES: same PROCEDURE: Primary low-transverse section SURGEON: Desiree Cramer Anesthesia: local and spinal Estimated blood loss (mL): 700 Pathology: none sent Complications: None Patient was transported to: floor Patient's condition: stable Indications: at 41 weeks, failed induction, intolerance of labor Findings: Delivery of a viable male infant with Apgars 8 and 9. Loose body cord x 1. Normal tubes, ovaries, uterus Procedure Description: After full informed consent was obtained, patient was taken the operating suite with an IV running. She is placed in the seated position and her previous epidural catheter was removed and spinal anesthesia administered. She was then placed in the dorsal supine position with leftward tilt and prepped and draped in the usual sterile fashion. She had Goodman catheter that was previously inserted and pneumatic compression stockings for DVT prophylaxis. She received 2 g of Ancef and 500 mg of Zithromax for surgical site infection prophylaxis. a timeout was performed. Quarter percent Marcaine was used to infiltrate the surgical incision site and a Pfannenstiel skin incision was made with a scalpel and carried down to the underlying fascia. The fascia was nicked in the midline and the fascial incision extended laterally. The rectus muscles identified and in the midline. The peritoneum was identified tented up and entered sharply. The peritoneal incision was then extended superiorly and inferiorly and the bladder blade inserted. The vesicouterine peritoneum identified tented up and entered sharply and the bladder flap was created. A low transverse uterine incision was made with a scalpel and then extended bluntly laterally. The vertex was delivered without trauma. There was no evidence of nuchal cord. The shoulders followed with ease. There was a loose body cord x 1 which was delivered through. Three-vessel cord was noted clamped x 2 and cut and the infant was handed off to the waiting supervisor framing mill. At this point cord blood sample and cord blood gases were both obtained and the placenta was manually expressed from the uterus. The uterus was then exteriorized and cleared of all clot and debris. She received IV Pitocin for uterine tonicity. The uterine incision was closed using 0 Monocryl suture in a running locked fashion followed by an imbricating layer for a 2 layer closure. The abdomen was then irrigated with copious amounts of normal saline and the uterus returned to the abdomen. The uterine incision was reinspected and noted to be hemostatic. Fallopian tubes and ovaries had been visualized and were normal. The fascial incision was then closed using 0 Vicryl suture in a running fashion. Subcutaneous tissue irrigated with copious amounts of normal saline and reapproximated with 3-0 Vicryl in a simple interrupted fashion. The subcuticular space was closed with a subcuticular stitch of 4-0 undyed Monocryl and Steri-Strips and a sterile dressing were placed. At the completion of the surgery there were no complications identified. All incisions and pedicles were hemostatic, and her Goodman catheter was in place draining clear yellow urine Findings: Delivery of a viable male with Apgars 8 and 9, loose body cord x 1. QBL: 700 mL Fluids: 800 mL of crystalloid per anesthesia with Pitocin. Pathology: None sent Complications: None apparent
--- NOTE | 2023-07-04 02:42 | W.ANESPOSTOP ---
Postoperative Evaluation Date, Time and Location Date Performed: 07/04/23 Time Performed: 02:43 Patient Location: Obstetrics Vital Signs Most Recent Imported Vital Signs: Most Recent Vital Signs Temp Pulse Resp BP Pulse Ox 36.7 C 85 18 133/74 99 07/03/23 22:26 07/04/23 02:34 07/03/23 19:14 07/04/23 01:03 07/04/23 02:34 Assessment Mental Status: Awake (Alert & Oriented to Patient Baseline) Airway and Respiratory Function: Patent airway with normal (patient baseline) respiratory exam Cardiovascular Function: Hemodynamically Stable Hydration Status: Adequately Hydrated Nausea & Vomiting: No Nausea or Vomiting Pain: Pt. Denies Any Pain Peripheral Nerve Block: Other (SAB, unresolved)
[2023-07-04] MEDS: Ketorolac 30 MG/ML VIAL 15 MG IVP ×4 (04:35→21:59)
[2023-07-04] MEDS: oxyCODONE 5 mg/Acetaminophen 325 mg TAB PO (06:52)
[2023-07-04] MEDS: Normal Saline Flush 10 ML SYR IVP ×4 (09:02→22:00)
[2023-07-04] MEDS: valACYclovir 1,000 MG TAB 1000 MG PO (09:28)
[2023-07-04] MEDS: Docusate Sodium 100 MG CAP PO ×2 (09:28→21:59)
[2023-07-04] MEDS: Acetaminophen 325 MG TAB 650 MG PO (14:41)
[2023-07-05] VITALS: BP 123/77; PULSE 83; RESP 18; TEMP 36.8
[2023-07-05 00:30] VITALS: BP 123/77; PULSE 83; RESP 18; O2SAT 97
[2023-07-05 01:30] VITALS: PULSE 82; RESP 18; O2SAT 99
[2023-07-05] MEDS: oxyCODONE 5 mg/Acetaminophen 325 mg TAB PO ×4 (05:55→23:13)
[2023-07-05 05:58] LABS: Abs Immature Grans 0.03 10^3/uL (0.0-0.06); Absolute Basophil Count 0.03 10^3/uL (0.0-0.2); Absolute Eosinophil Count 0.02 10^3/uL (0.0-0.7); Absolute Lymphocyte Count 1.65 10^3/uL (1.2-3.4); Absolute Monocyte Count 0.47 10^3/uL (0.1-0.8); Absolute Neutrophil Count 7.52 10^3/uL (1.2-6.7); Basophils % 0.3; Eosinophils % 0.2; HCT 29.9 % (36.0-46.0); HGB 10.2 g/dL (11.2-15.7); Immature Grans % 0.3; MCH 29.4 pg (27.0-33.0); MCHC 34.1 % (32.0-36.0); MCV 86 fL (80-95); MPV 10.3 fL (8.0-11.0); Monocytes % 4.8; Neutrophils % 77.4; Platelet Count 100 10^3/uL (130-400); RBC 3.47 10^6/uL (3.93-5.22); RDW 14.3 % (11.7-14.6); RDW-SD 43.7 fL; WBC 9.72 10^3/uL (4.4-10.8)
[2023-07-05 09:56] VITALS: BP 119/79; PULSE 84; TEMP 36.7
--- NOTE | 2023-07-05 11:35 | W.PM.OBPNV1 ---
Date of service: 07/05/23 Time of Service: 11:35 Assessment and Plan Assessment and plan (1) Status post primary low transverse section: Status: Acute Assessment and plan: Routine post-op care. Anticipate D/C tomorrow. Circ for . Subjective Subjective Narrative: Pt is feeling well overall. Struggling with the baby latching but she is pumping a good bit of colostrum. Minimal lochia. Pain well controlled on PO meds. Tolerating PO intake w/out n/v. She had a small BM this am. Ambulating w/out difficulty. Exam Physical Exam Vital signs: Temp Pulse Resp BP Pulse Ox 98.1 F 84 18 119/79 99 07/05/23 09:56 07/05/23 09:56 07/05/23 01:30 07/05/23 09:56 07/05/23 01:30 Vital Signs Reviewed: Yes Constitutional Constitutional: no acute distress and cooperative Detailed HEENT Exam Head: Present normocephalic and atraumatic Respiratory Exam Respiratory Exam: Normal Abdominal Exam Abdomen: Tender (mildly) Comments: Incision clean, dry, intact. Mepilex dressing in placed with small [place] dried blood right of center Fundal Exam Fundus: Below Umbilicus and Firm Detailed Neurological Exam Neurological: Present alert, oriented X3 and CN II-XII intact Results Hemoglobin/Hematocrit: Hgb 10.2 g/dL (11.2-15.7) L 07/05/23 05:53 Hct 29.9 % (36.0-46.0) L 07/05/23 05:53 Abnormal Lab Findings: Abnormal Labs 07/02/23 07/05/23 11:32 05:53 RBC 3.47 L Hgb 10.2 L Hct 35.0 L 29.9 L Plt Count 100 L Absolute Neutrophils 7.52 H
[2023-07-05] MEDS: valACYclovir 1,000 MG TAB 1000 MG PO (11:44)
[2023-07-05] MEDS: Ibuprofen 600 MG TAB PO ×2 (16:41→23:13)
[2023-07-05 20:05] VITALS: BP 111/69; PULSE 74; RESP 18; TEMP 36.8
[2023-07-06] MEDS: Ibuprofen 600 MG TAB PO ×2 (09:06→15:56)
[2023-07-06] MEDS: oxyCODONE 5 mg/Acetaminophen 325 mg TAB PO ×2 (09:06→15:57)
[2023-07-06] MEDS: valACYclovir 1,000 MG TAB 1000 MG PO (09:06)
[2023-07-06 10:07] LABS: Bilirubin Negative (Negative); Blood Large (Negative); Clarity Sl Cloudy (Clear); Glucose Negative (Negative); Ketones Negative (Negative); Leukocyte Esterase Negative (Negative); Nitrite Negative (Negative); Specific Gravity 1.015 (1.005-1.025); Urobilinogen 0.2 mg/dL (Up to 0.2)
[2023-07-06 10:15] LABS: Bacteria Rare HPF (Negative); C & S Indicated? No; Casts Negative LPF (Negative); Crystals Negative HPF (Negative); Epithelial Cells Few HPF (Negative); Mucus Trace (Negative); WBC 0-2 HPF (0-5)
--- NOTE | 2023-07-06 11:00 | OBPPV_ITS ---
Date of service: 07/06/23 Time of Service: 11:00 Assessment and Plan Assessment and plan (1) Status post primary low transverse section: Status: Acute Assessment and plan: Plan D/C today. Return for dressing removal later this week. Reviewed reasons to call. Will f/u urine culture but treat prophylactically due to her classic sxms. Subjective Subjective Narrative: Pt is doing well POD#2 s/p PCS for Cat 2 FHT. OOB and tolerating regular diet. No n/v. +BM. Has had some sharp pains with urination that started overnight. It feels like a prior UTI. Minimal lochia. Baby is doing better with breast- feeding. Exam Physical Exam Vital signs: Temp Pulse Resp BP Pulse Ox 98.3 F 74 18 111/69 99 07/05/23 20:05 07/05/23 20:05 07/05/23 20:05 07/05/23 20:05 07/05/23 01:30 Vital Signs Reviewed: Yes Constitutional Constitutional: no acute distress and cooperative Detailed HEENT Exam Head: Present normocephalic and atraumatic Respiratory Exam Respiratory Exam: Normal Abdominal Exam Abdomen: Tender (mildly) Comments: Incision clean, dry, intact. Mepilex in place with same area of dried blood. Fundal Exam Fundus: Below Umbilicus and Firm Detailed Neurological Exam Neurological: Present alert, oriented X3 and CN II-XII intact Results Hemoglobin/Hematocrit: Hgb 10.2 g/dL (11.2-15.7) L 07/05/23 05:53 Hct 29.9 % (36.0-46.0) L 07/05/23 05:53 Abnormal Lab Findings: Abnormal Labs 07/02/23 07/05/23 07/06/23 11:32 05:53 08:50 RBC 3.47 L Hgb 10.2 L Hct 35.0 L 29.9 L Plt Count 100 L Absolute Neutrophils 7.52 H Urine Protein Trace H Urine Blood Large H Urine RBC 10-20 H Additional Findings Results: Urine dip: few WBCs
--- NOTE | 2023-07-06 11:06 | DSE_ITS ---
Date of service: 07/06/23 Time of Service: 11:06 DS: Diagnosis Discharge Diagnosis (1) Status post primary low transverse section: Status: Acute Discharge Plan Disposition Patient Disposition: Home Condition: Good Discharge Details Reason For Visit: Induction of Labor Admit Date/Time: 07/02/23 09:50 Admit Provider: Cecilia Verma Attending Provider: Cecilia Verma [facility] Course: Admitted for induction of labor at term. Progressed slowly and then had a PCS for Cat 2 FHT remote from delivery. Routine post-op course. Home Meds and New Rx's Prescriptions: New acetaminophen 325 mg Tablet 650 mg PO Q4H PRN PRNQty: 0 0RF oxycodone-acetaminophen 5-325 mg Tablet 1 tab PO Q4H PRN MDD 8 PRNQty: 10 0RF docusate sodium [Colace] 100 mg Capsule 100 mg PO BID PRN PRNQty: 0 0RF ibuprofen 600 mg Tablet 600 mg PO Q6H PRN PRNQty: 60 0RF Continued magnesium 200 mg tablet 200 mg PO DAILY prenat.vits,faith,xwa-ytsf-uplus Tablet 1 tab PO DAILY Discontinued ferrous sulfate 325 mg (65 mg iron) tablet 325 mg PO DAILY Qty: 60 3RF valacyclovir 1 gram tablet 1,000 mg PO DAILY PRN (Reason: herpes outbreak) Qty: 60 5RF Discharge Instructions Activity:: No lifting >20lbs. Equipment/Supplies:: No Equipment Needed Diet:: As Tolerated Discharge Orders Discharge Orders: Discharge Order (Routine); Ordered 07/06/23 Ordered By: Diamond Mcclellan OB:DS Summary Contraception Discussed Contraception Discussed: Yes (Will likely use minipill) Contraceptive Plan: Control Pill/Patch and Foam/Condoms, Status at Discharge Functional status at discharge: independent ambulation Overall status at discharge: patient is progressing back to baseline Mental Status: mental status grossly normal Speech and Movement: speech and movement normal Mood: congruent mood Affect: normal affect Exam Physical Exam Vital signs: Temp Pulse Resp BP Pulse Ox 98.3 F 74 18 111/69 99 07/05/23 20:05 07/05/23 20:05 07/05/23 20:05 07/05/23 20:05 07/05/23 01:30 Vital Signs Reviewed: Yes PFSH All Active Problems (Updated 07/04/23 @ 02:39 by Desiree Cramer DO) Generalized anxiety disorder (Acute) Status post primary low transverse section (Acute) 07/04/2023. Failed induction. intolerance of labor. Delivery of a viable male with loose body cord x 1 Medical History (Updated 07/05/23 @ 11:40 by Diamond Mcclellan MD) Arthralgia Back pain Chronic right flank pain COVID-19 10/2021-associated with URI and bronchospasm Depressive disorder Genital herpes Labral tear of shoulder Macular dystrophy Right eye, followed [facility] Pulsatile tinnitus of left ear Surgical History (Updated 07/04/23 @ 02:39 by Desiree Cramer DO) No significant past surgical history Family History Mother Asthma Alcohol abuse Depression Colon cancer Father Bipolar disorder Alcohol abuse Sister Alcohol abuse Depression Brother No problems noted. Brother Alcohol abuse Maternal Grandfather , at 63 Brain cancer Depression Heart disease Hyperlipidemia Hypertension Type 2 diabetes mellitus Maternal Grandmother Depression Hyperlipidemia Breast cancer diagnosed age 70 Paternal Grandfather , at 52 Brain cancer Type 2 diabetes mellitus Alcohol abuse Heart disease Hyperlipidemia Hypertension Paternal Grandmother , 50s Alcohol abuse Lung cancer Depression Social History Smoking/Tobacco Use Status: Never Smoking risk assessment performed?: Yes Alcohol Intake: current Alcohol Intake frequency: a few times a month Drug use: Daily Substance use type: marijuana Details: Stopped at discovery of Caregiver/Support person: No Household members: family Housing: house Communication Needs: None Do you need help understanding health information?: Never Pets and animals: Yes Pets and animals: cat(s) Sexually active: Yes Do you think of yourself as: bisexual Current gender identity: female What is your relationship status?: never How often do you talk on the phone with friends or family?: three or more times per week How often do you get together with friends or relatives?: three or more times per week How often do you attend roman catholic or congregation services?: decline to answer Do you belong to any clubs or organized social groups?: no Panel score (0-1 are the most socially isolated patients): 1 What type of physical activity do you participate in: decline to answer Duration: 30-45 minutes/day Frequency: 3-4 times per week Dawn/Muslim: None Special dawn needs: No Seatbelt use: sometimes Helmet use: Yes Helmet use: sometimes Drive intox or ride w/intox hook up driver: No Do you feel safe at home: Yes Do you feel safe in your relationship?: Yes Female Reproductive History Menstrual control method: pills History History 1 Para 0 Hx # Term Pregnancies 0 Multiple births 0 Hx # Pregnancies 0 Ectopic pregnancies 0 AB induced 0 Hx Number of Living Children 0 AB spontaneous 0 DS: Data Vitals/I&O Vitals and I&O: Vital Signs Temperature 98.3 F 07/05/23 20:05 Temperature 97.9 F 07/02/23 10:02 Temperature Source Oral 07/05/23 20:05 Pulse 74 07/05/23 20:05 Pulse 86 07/02/23 10:02 Pulse Rhythm Regular 07/05/23 20:05 Respiratory Rate 18 07/05/23 20:05 Respiratory Depth Normal 07/03/23 19:14 Blood Pressure 111/69 07/05/23 20:05 Blood Pressure 119/78 07/02/23 10:02 Blood Pressure Mean 83 07/05/23 20:05 Pulse Oximetry 99 07/05/23 01:30 Oxygen Delivery Method Room Air 07/02/23 11:45 Oxygen Flow Rate 0 07/02/23 11:45 Pain Level 5 07/05/23 23:13 Comment le 07/04/23 05:15 Intake & Output 07/05/23 07/05/23 07/06/23 11:59 23:59 11:59 Other: Urine Color Pale Data Completed and Pending Labs on day of discharge: Labs from last 24 hours 07/06/23 08:50 Urine Color Yellow Urine Clarity Sl Cloudy Urine pH 7.0 Ur Specific [place] 1.015 Urine Protein Trace H Urine Ketones Negative Urine Blood Large H Urine Nitrite Negative Urine Bilirubin Negative Urine Urobilinogen 0.2 Ur Leukocyte Esterase Negative Urine RBC 10-20 H Urine WBC 0-2 Ur Epithelial Cells Few Urine Crystals Negative Urine Bacteria Rare Urine Casts Negative Urine Mucus Trace Ur Culture Indicated? No Urine Glucose Negative 07/06/23 08:50 Urine - Clean Catch Urine Culture - Pending Preliminary micro results at discharge 07/06/23 08:50 Urine Culture - Pending Urine - Clean Catch
[2023-07-06] MEDS: MacroBID 100 MG CAP PO (12:46)
[2023-07-06] MEDS: Measles, Mumps, & Rubella Vaccine 0.5 ML VIAL SC (15:59)
[2023-07-06] MEDS: Varicella Virus Vaccine (Live) 0.5 ML SC (16:01)
== END 2023-07-06 16:45 | disposition home or self-care (01) | DRG 787 ==
PROVIDERS: Advanced Practice Midwife; Obstetrics & Gynecology; Admitting Provider Advanced Practice Midwife; PCP Nurse Practitioner Family; Visit Provider Advanced Practice Midwife
PROC: 10D00Z1 Extraction of Products of Conception, Low, Open Approach (ICD-10-PCS; CPT 59514; principal; 2023-07-04 01:05)
DX: O48.0 Post-term pregnancy (principal); O98.32 Other infections with a predominantly sexual mode of transmission complicating childbirth; Z37.0 Single live birth; Z3A.41 41 weeks gestation of pregnancy; A60.04 Herpesviral vulvovaginitis; O76 Abnormality in fetal heart rate and rhythm complicating labor and delivery; O61.0 Failed medical induction of labor; O99.344 Other mental disorders complicating childbirth; F41.1 Generalized anxiety disorder; F32.A Depression, unspecified
CPT/HCPCS: 59514; 36415; 85027; 86850; 86900; 86901; 81003; 81015; 85025; 86870; 86880; 86902; 86905; 86906; 87086; J0456; J0690; J1885; J3010

== ENCOUNTER → 2023-12-17 01:43 | Outpatient (CLI) | payer OTHER, SELFPAY ==
--- NOTE | 2023-12-17 08:00 | DI.MRI_ITS ---
Exam(s) MR IAC BRAIN WO/W EXAM: MR IAC BRAIN WO/W CLINICAL HISTORY: chronic pulsatile tinnitus of left ear,H93.A2. TECHNIQUE: Multiplanar multisequence MRI of the brain and internal auditory canals was performed. CONTRAST MATERIAL: IV Contrast: 19 mL of Dotarem contrast administered. COMPARISON: CT HEAD WITHOUT CONTRAST from 08/05/2016 FINDINGS: VENTRICLES AND EXTRA AXIAL SPACES: Normal in size and morphology for the patient's age. HEMORRHAGE: None. CEREBRAL PARENCHYMA: No focus of restricted diffusion to suggest acute infarct. No space-occupying le cheng identified. MIDLINE SHIFT: None. BRAINSTEM/CEREBELLUM: Normal. CALVARIUM: Normal. ENHANCEMENT: No suspicious enhancement identified. VISUALIZED PARANASAL SINUSES/MASTOIDS: Clear. ORBITS: Unremarkable. IAC/CP ANGLE: The internal auditory canals are within normal limits. The cerebellar pontine angles ar e unremarkable. No enhancing lesions are seen. Visualized portions of the cranial nerves appear withi n normal limits. OTHER FINDINGS: Vascular flow voids are intact. The pituitary is not enlarged. IMPRESSION: Unremarkable MRI of the brain and internal auditory canals. DATA REPOSITORY:
[2023-12-17] MEDS: Normal Saline Flush 10 ML SYR IVP (13:55)
[2023-12-17] MEDS: Gadoterate meglumine 20 ML SYRINGE 19 ML IVP (13:56)
== END ==
PROVIDERS: PCP Nurse Practitioner Family; Visit Provider Nurse Practitioner Family
DX: H93.A2 Pulsatile tinnitus, left ear (principal)
CPT/HCPCS: 70553

== ENCOUNTER → 2024-05-03 04:41 | Outpatient (CLI) | payer OTHER, SELFPAY ==
--- NOTE | 2024-05-03 08:00 | DI.MRI_ITS ---
Exam(s) MR ANGIO BRAIN WO EXAM: MR ANGIO BRAIN WO CLINICAL HISTORY: pulsatile tinnitus,H93.A2 TECHNIQUE: Study was performed on 1.5 carl unit with [id number] sequence. No IV contrast COMPARISON: MR MR IAC BRAIN WO/W from 12/17/2023 FINDINGS: ANTERIOR CIRCULATION: Both internal carotid arteries are patent in the skull base-carotid canals. No aneurysms at this lev el. Both the demonstrated to be patent within the cavernous sinuses. The bilateral ophthalmic arter ies are patent and originated conventional fashion off the intracavernous internal carotid arteries. Supraclinoid aspects of the internal carotid arteries are patent and nonaneurysmal. Both A1 segment s are patent as are the anterior cerebral arteries and there is no aneurysm at the level the anterior communicating artery. Both middle cerebral arteries are patent. No significant stenosis. No aneurysms. POSTERIOR CIRCULATION: Basilar artery is formed at the skull base by contribution from both vertebral arteries. Posterior i nferior cerebellar arteries are patent originate off the vertebral arteries at the skull base. Basil ar artery ascends in the midline with normal luminal diameter. Distally it gives off patent bilatera l superior cerebellar arteries and above this level terminates as patent bilateral posterior cerebral arteries. There are also posterior communicating arteries on both sides of the [id number]. There is no evidence of major venous sinus thrombosis. Sagittal sinus is demonstrated to be patent t hroughout its length as is the straight sinus. IMPRESSION: 1. No significant intracranial findings on this MRA scan of the brain. 2. No aneurysms evident the intracranial compartment. 3. No obvious venous sinus thrombosis. DATA REPOSITORY:
--- NOTE | 2024-05-03 08:00 | DI.MRI_ITS ---
Exam(s) MR VENOUS BRAIN WO/W EXAM: MR VENOUS BRAIN WO/W CLINICAL HISTORY: pulsatile tinnitis,? venous stenosis TECHNIQUE: Performed on a 1.5 carl unit IV Contrast injected was cc Dotarem. COMPARISON: MR MR IAC BRAIN WO/W from 12/17/2023 MR MR ANGIO BRAIN WO from 05/03/2024 FINDINGS: There are no conventional brain sequences There is no evidence of venous sinus thrombosis on this study. IMPRESSION: 1. No evidence of significant venous sinus thrombosis. DATA REPOSITORY:
[2024-05-03] MEDS: Gadoterate meglumine 20 ML SYRINGE IVP (13:59)
[2024-05-03] MEDS: Normal Saline Flush 10 ML SYR IVP (14:04)
== END ==
PROVIDERS: PCP Nurse Practitioner Family; Visit Provider Psychiatry & Neurology Neurology
DX: H93.A2 Pulsatile tinnitus, left ear (principal)
CPT/HCPCS: 70544; 70546

== ENCOUNTER 2024-05-03 16:18 | Outpatient (CLI) | payer OTHER, SELFPAY ==
[2024-05-03 13:36] LABS: Absolute Basophil Count 0.02 10^3/uL (0.0-0.2); Absolute Eosinophil Count 0.01 10^3/uL (0.0-0.7); Absolute Lymphocyte Count 2.16 10^3/uL (1.2-3.4); Absolute Monocyte Count 0.17 10^3/uL (0.1-0.8); Absolute Neutrophil Count 4.23 10^3/uL (1.2-6.7); Basophils % 0.3 %; Eosinophils % 0.2 %; HCT 40.2 % (36.0-46.0); HGB 13.5 g/dL (11.2-15.7); Lymphocytes % 32.8 %; MCH 28.6 pg (27.0-33.0); MCHC 33.6 % (32.0-36.0); MCV 85 fL (80-95); MPV 10.8 fL (8.0-11.0); Monocytes % 2.6 %; Neutrophils % 64.1 %; Platelet Count 156 10^3/uL (130-400); RBC 4.72 10^6/uL (3.93-5.22); RDW 12.6 % (11.7-14.6); RDW-SD 38.9 fL; WBC 6.59 10^3/uL (4.4-10.8)
[2024-05-04 14:16] LABS: ANA Interpretation Positive (Negative); ANA Titer Pattern 1:320 Homogeneous
[2024-05-05 10:59] LABS: Coag FactorVIII Activity Assay 130 % (55 - 200); von Willebrand Factor Activity 81 % (55 - 200); von Willebrand Factor Ag 94 % (55 - 200)
== END 2024-05-03 16:19 | disposition home or self-care (01) ==
LOC: LBO 16:19
PROVIDERS: PCP Nurse Practitioner Family; Visit Provider Family Medicine
DX: R23.3 Spontaneous ecchymoses (principal)
CPT/HCPCS: 36415; 85240; 85246; 85390; 85397; 85025; 86038

== ENCOUNTER 2024-06-09 11:32 | Outpatient (CLI) | payer OTHER, SELFPAY ==
--- NOTE | 2024-06-09 08:30 | DI.RAD_ITS ---
Exam(s) XR SHOULDER LT COMPLETE 2+V EXAM: XR SHOULDER LT COMPLETE 2+V CLINICAL HISTORY: left shoulder pain. TECHNIQUE: 2D digital imaging was performed. COMPARISON: CR XR SHOULDER LT COMPLETE 2+V from 06/05/2021 FINDINGS: Two views. No evidence of fracture or dislocation or abnormal soft tissue calcifications in the subacromial spac e. Subacromial space height is not diminished. Bone density normal. No osseous lesions. IMPRESSION: No acute osseous findings in the left shoulder. No significant change compared to 06/05/2021. DATA REPOSITORY: RADIATION DOSE DELIVERED:
== END 2024-06-09 11:33 | disposition home or self-care (01) ==
LOC: DIORS 11:34
PROVIDERS: PCP Nurse Practitioner Family; Visit Provider Physician Assistant
DX: M25.312 Other instability, left shoulder (principal)
CPT/HCPCS: 73030

== ENCOUNTER 2024-07-07 01:42 | Outpatient (CLI) | payer OTHER, SELFPAY ==
--- NOTE | 2024-07-07 07:15 | DI.MRI_ITS ---
Exam(s) MR UPPER JOINT LT W EXAM: MR UPPER JOINT LT W CLINICAL HISTORY: ? LABRAL TEAR,instability lt shoulder,m25.312,s43.439a. TECHNIQUE: Multiplanar multisequence MRI was performed. COMPARISON: MR UPPER EXTREMITIES ADULT from 06/18/2021 CR XR SHOULDER LT COMPLETE 2+V from 06/09/2024 FINDINGS: BONES: There is no fracture or contusion pattern. JOINTS: The acromioclavicular joint is normal. The glenohumeral joint is normal. TENDONS: Supraspinatus: Unremarkable. Infraspinatus: There is no change in appearance of the posterior inferior infraspinatus tendon. Subscapularis: Unremarkable. Teres [place]: Unremarkable. Biceps and [place]: Unremarkable. MUSCLES: Unremarkable. GLENOID LABRUM: There is contrast undercutting the anterior labrum which was present on the prior exa mination. The labrum is otherwise unremarkable. SOFT TISSUES: Unremarkable. LIGAMENTS: Unremarkable. OTHER: Subacromial and subdeltoid bursae are unremarkable. IMPRESSION: 1. There is again seen contrast uncooked undercutting the anterior labrum which was present on the pr ior examination. 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 The labrum is otherwise unrem arkable. 2. No change in appearance of the inferior infraspinatus tendon. 3. No evidence of a new ligament, labral or rotator cuff tear. DATA REPOSITORY:
[2024-07-07] MEDS: Omnipaque 300 MG/ML 10 ML BTL IJ (10:26)
[2024-07-07] MEDS: Gadoterate meglumine 20 ML VIAL IVP (10:27)
[2024-07-07] MEDS: Normal Saline - Diluent 50 ML VIAL IM (10:28)
--- NOTE | 2024-07-07 10:39 | DI.RAD_ITS ---
Exam(s) RF ARTHROGRAM RAD W CT OR MRI EXAM: RF ARTHROGRAM RAD W CT OR MRI CLINICAL HISTORY: labral tear, instability lt shoulder joint, m25,312,s43.439a TECHNIQUE: 2D and realtime digital imaging was performed. CONTRAST MATERIAL: Water soluble contrast was administered. COMPARISON: MR MR UPPER JOINT LT W from 07/07/2024 FINDINGS: Fluoroscopy was provided for Dr. Moreno during the performance of a left shoulder arthrogram. The pa tient was prepped and draped in the usual sterile fashion. Local anesthesia was administered. The tuan nt was accessed using a spinal needle and confirmed under fluoroscopy. A solution containing Dotarem , Omnipaque and saline was injected into the joint. Images were obtained. The patient tolerated the p rocedure well. Final instructions were given to the patient and they left the department in good cond ition. IMPRESSION: Successful arthrogram under fluoroscopic guidance. The patient was advised to return to the emergency room if any signs of bleeding or infection occur. RADIATION DOSE DELIVERED: rob Fritz=4.65 mGy
[2024-07-07] MEDS: Bupivacaine 0.5% Pres-Free 10 ML VIAL IJ (11:08)
== END 2024-07-07 02:02 ==
LOC: DI 01:42
PROVIDERS: PCP Nurse Practitioner Family; Visit Provider Student in an Organized Health Care Education/Training Program
DX: M25.312 Other instability, left shoulder
CPT/HCPCS: 23350; 73040; 73222; J0665

== ENCOUNTER 2024-08-20 05:58 | Day surgery (SDC) | payer OTHER, SELFPAY ==
[2024-08-20] VITALS (14 sets, daily range): BP systolic 93–137; BP diastolic 48–86; PULSE 62–95; RESP 13–18; TEMP 36.4–37; O2SAT 95–100; BMI 27.9
--- NOTE | 2024-08-20 06:29 | ANES.PREOP_ITS ---
General Info Date of Service Date Performed: 08/20/24 Height: 5 ft 7 in Weight: 80.9 kg Body Mass Index (BMI): 27.9 Surgical Procedure: Operation Date: 08/20/24 07:40 Proposed Procedure Side Surgeon p Shoulder Arthroscopy w/labral repair/stabilization and open biceps tenodesis Left Bogdan Saleh MD Meds Allergies and Home Medications Allergies Allergy/AdvReac Type Severity Reaction Status Date / Time nickel AdvReac Unknown Skin Rash Verified 08/20/24 06:11 Home Medication ?Medication ?Instructions ?Recorded acetaminophen 325 mg tablet 650 mg (2 x 325 mg) PO Q4H PRN PRN 07/06/23 #0 tabs naproxen 250 mg tablet 250 - 500 mg (1 - 2 x 250 mg) PO 08/20/24 BID PRN moderate pain and swelling #40 tabs oxycodone 5 mg tablet 5 - 10 mg (1 - 2 x 5 mg) PO .q4-6h 08/20/24 PRN severe pain #18 tabs Current Visit Medications: Current Medications Generic Name Dose Route Start Last Admin Trade Name Freq PRN Reason Stop Dose Admin Ringer's Solution 1,000 mls @ 30 mls/hr 08/20/24 06:00 IV 08/20/24 23:59 INFUSION AMAYA Cefazolin Sodium/Dextrose 2 gm in 50 mls @ 100 mls/hr 08/20/24 06:00 Ancef Duplex IVPB 08/20/24 23:59 PREOP AMAYA Tranexamic Acid/Sodium Chloride 1,000 mg in 100 mls @ 600 mls/hr 08/20/24 06:00 IVPB 08/20/24 23:59 PREOP AMAYA IV Miscellaneous Supplies 1 each 08/20/24 06:00 Iv Access IV 08/20/24 23:59 DIRECTED AMAYA Sodium Chloride 0 ml 08/20/24 06:00 Normal Saline Flush 10 Ml Syr IV 08/20/24 23:59 PRN PRN Sodium Chloride 0 ml 08/20/24 06:00 Normal Saline 10 Ml Vial IJ 08/20/24 23:59 DIRECTED PRN Sterile Water 0 ml 08/20/24 06:00 Water,Injection,Sterile 10 Ml Vial IJ 08/20/24 23:59 DIRECTED PRN PFSH Active Problems Active Problems: Problem Status Onset Code Tendinitis of long head of biceps brachii of left shoulder Acute M75.22 Sensation of fullness in left ear Acute H93.8X2 Positive STU (antinuclear antibody) Acute R76.8 Migraine headache with aura Acute G43.109 Chronic headache Acute R51.9, G89.29 Nonspecific paroxysmal spell Acute R40.4 Back pain Acute M54.9 Panic Acute F41.0 Pulsatile tinnitus of left ear Chronic H93.A2 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 intolerance of labor. Delivery of a viable male with loose body cord x 1 Tobacco Smoking/Tobacco Use Status: Never Passive smoking exposure: Yes Second hand exposure: Yes Alcohol Alcohol Intake: current Alcohol intake frequency: holidays/special occasions only Alcohol type: wine Substance Use Substance use: Rarely Substance use type: marijuana Details: Last marijuana use 2 weeks ago. Prental History History 1 Para 1 Hx # Term Pregnancies 1 Multiple births 0 Hx # Pregnancies 0 Ectopic pregnancies 0 AB induced 0 Hx Number of Living Children 1 AB spontaneous 0 Past Pregnancies Del. Date GA/Weeks # Preg Succ Route Wgt Sex Labor Lgth Anesth esia Location [facility] 07/04/23 41 No Yes 3345.244 g [facility] DO Aimee Delivery Date: 07/04/23 Last Updated by: MERCEDES Mensees; failed induction; intolerance of labor Vital Signs and Lab Results Vital Signs Most Recent Vital Signs in EMR: Most Recent Vital Signs Temp Pulse Resp BP Pulse Ox 36.6 C 65 16 137/65 100 08/20/24 06:02 08/20/24 06:02 08/20/24 06:02 08/20/24 06:02 08/20/24 06:02 Point of Care Results Point of Care Results: POC- Test(urine) Negative 09/27/24 06:16 Lab Results Blood Type / Crossmatch: No Data to Display Complete Blood Count: No Data to Display Complete Metabolic Panel: No Data to Display Liver Function Panel: No Data to Display Coagulation Panel: No Data to Display Cardiac Panel: No Data to Display Arterial Blood Gas: No Data to Display Venous Blood Gas: No Data to Display Pancreas Panel: No Data to Display Thyroid Panel: No Data to Display Infectious Disease: No Data to Display Blood Cultures: No Data to Display Toxicology Panel: No Data to Display Panel: No Data to Display Anesthesia Assessment and Plan Anesthesia History Personal History: No History of Anesthesia Complications Family History: No Family History of Anesthesia Complications Exercise Tolerance Exercise Tolerance: Metabolic Equivalents>4 Pertinent Negatives Pertinent Negatives: No Symptoms of GERD, No Major Cardiovascular Symptoms or Complaints, No Major Pulmonary Symptoms or Complaints and No History of CVA/TIA Cardiac & Pulmonary Exam Cardiac Exam: Normal S1/S2 Heart Sounds Pulmonary Exam: Clear Bilateral Breath Sounds Implantable Cardiac Device Does patient have a Pacemaker or an ICD?: No Airway Exam Known Difficult Airway: No Mallampati Class: 2 Mouth Opening: Normal (> 3cm) Thyromental Distance: Greater than 3 cm Neck Range of Motion: Full ROM Neck Circumference: Normal Teeth Condition: Normal Dentition ASA Classification ASA Score: ASA 2 Emergency Case?: Yes NPO Status NPO Status: NPO Clear Liquids>2 hours Status Status: Negative HCG Anesthesia Plan Resuscitation Status: Full Code Anesthesia Technique: General Anesthesia Airway Planned: Endotracheal Tube Pain Management: Surgeon and patient request nerve block Monitors Used: Standard Monitors
--- NOTE | 2024-08-20 07:07 | W.PM.DSUDISC ---
Date of service: 08/20/24 Time of Service: 10:00 Discharge Plan Disposition Patient Disposition: Home Condition: Stable Discharge Details Attending Provider: Bogdan Saleh Primary Care Provider: Kim Campuzano Home Meds and New Rx's Prescriptions: New naproxen 250 mg tablet 250 - 500 mg PO BID PRN (Reason: moderate pain and swelling) Qty: 40 0RF oxycodone 5 mg tablet 5 - 10 mg PO .q4-6h MDD 30 mg PRN (Reason: severe pain) Qty: 18 0RF Continued acetaminophen 325 mg Tablet 650 mg PO Q4H PRN PRNQty: 0 0RF Discontinued ibuprofen 600 mg Tablet 600 mg PO Q6H PRN PRNQty: 60 0RF Discharge Instructions Additional Instructions: Surgery: Left shoulder arthroscopy with labral repair/stabilization, debridement, and open biceps tenodesis Activity: For 6 weeks, you should keep your arm at your side in a neutral position at all times except for physical therapy. Do not try to lift or raise your arm using your own muscles. You should use the sling whenever you are out of the house. At home it is best to remove the sling and rest the arm on a pillow at your side or support the operative side with your other hand. You may allow the arm to dangle at your side. A physical therapy prescription will be sent electronically to begin in about 3 weeks. Postoperative protocol/ ROM restrictions: Weeks 0?3: 0 degrees external rotation Weeks 3?6: Maximum 30 degrees external rotation and 90 degrees forward elevation Weeks 6?8: Maximum 45 degrees external rotation and 120 degrees forward elevation Weeks 8+: Advance to full range of motion Weeks 10-12+: Start light rotator cuff strengthening and dynamic scapular stabilization Prescriptions: Naproxen 250 mg take 1-2 every 12 hours with a meal as needed for moderate pain Oxycodone 5 mg take 1-2 every 4-6 hours as needed for severe pain You may use [id number] Tylenol (acetaminophen) as needed for mild pain. These pain medications may be taken all at once or in different combinations as needed. Also, recommend Colace (docusate) as a stool softener as surgery and pain medicine cause constipation. You may try [id number] diphenhydramine (Benadryl) 25-50 mg nightly as a sleep aid Dressings: Remove shoulder bandage after 3 days. Leave the sticky Steri-Strips in place until they fall off or remove them after you shower. Cover the incisions with Band-Aids or leave them open to air. The biceps bandage (inside upper arm) is glued on separately. You may leave this one on a few days longer if it is difficult to remove. There is also glue underneath this bandage that can be left in place until it peels off. You may shower after 5 days. Follow-up: 10-[address] Saleh You may take off the leg compression stockings this evening at home. You may also leave them on a few days longer if you have a history of leg swelling or edema. Let us know right away if you develop any redness, drainage, fevers, chest pain, or trouble breathing. Do not drink alcohol or drive for at least 24 hours after anesthesia. Please call the office during business hours with any questions or concerns. Discharge Orders Discharge Orders: Discharge Order (Routine); Ordered 08/20/24 Ordered By: Maribel Cox DS: Diagnosis Discharge Diagnosis (1) Instability of left shoulder joint: Status: Chronic (2) Tendinitis of long head of biceps brachii of left shoulder: Status: Acute
[2024-08-20] MEDS: Lactated Ringers 1,000 ML 30 ML IV (07:10)
--- NOTE | 2024-08-20 07:18 | W.PM.OP ---
Date of service: 08/20/24 Time of Service: 07:30 Operative Note Operative Note DATE OF PROCEDURE: 08/20/24 PRE-OP DIAGNOSIS: Left shoulder: 1. Instability/ labral tear 2. Proximal biceps tendinopathy POST-OP DIAGNOSIS: same PROCEDURE: Left: 1. Arthroscopic labral repair/stabilization, CPT #99690: This involved suture anchor repair of the anterior capsular labral ligamentous complex. 2. Open biceps tenodesis, CPT# 06067. This involved reattaching the long head of the biceps tendon to the proximal humerus in the sub-pectoral area of the bicipital groove at the correct tension. 3. Limited debridement, CPT# 35902. This involved removing small cartilaginous loose bodies from the axis recess and debriding anterior and rotator interval synovitis. The human resources executive assistant was medically required in order to help assist in techniques above, which require positioning the arm, holding the arthroscope, and manipulating multiple instruments and sutures at the same time. This cannot be done without the help of an experienced human resources executive assistant. SURGEON: Bogdan Saleh PACK OPERATOR: Maribel Cox ANESTHESIA TYPE: Local By Surgeon, General LMA/ETT and Primary Nerve Block Refer to Anesthesia Record ESTIMATED BLOOD LOSS: 5 PATHOLOGY: none sent COMPLICATIONS: None Patient was transported to: PACU Patient's condition: stable Implants: Arthrex: 2.9mm PushLocks x 3 and unicortical Proximal Biceps Tenodesis Button Indications: The patient was diagnosed with the above conditions and appropriately indicated for surgical intervention. Please see complete medical record for details. Findings: Exam under anesthesia: Full range of motion, moderate anterior instability, no multidirectional instability Glenohumeral joint: Obvious anterior to anterior-inferior labral tear without notable bone loss. Absent versus diminutive [facility] L variant. Preserved cartilage. Possibly still preserved periosteum on the medial scapular neck. Intact articular rotator cuff. Notable biceps injection synovitis through the intra-articular segment and down the bicipital groove. Procedure Description: In the operating room, general anesthesia was induced. Bilateral shoulders were examined. The patient was positioned in the beachchair position. All bony prominences were well-padded. Preoperative antibiotics were administered. The shoulder was prepped and draped in the usual sterile fashion. The correct patient, procedure, and side of the procedure were all verified prior to incision. Starting through the posterior portal a standard complete diagnostic arthroscopy was performed of the glenohumeral joint including inspection of the long head of the biceps, anterior and superior labrum, subscapularis tendon, supraspinatus and infraspinatus tendons, and axillary recess. The glenoid and humeral head cartilage as well as the posterior labrum were inspected from an anterior viewing portal. Significant findings and interventions noted above including removal of some loose bodies from instability/dislocations in the axillary recess. The biceps tendon was released from the superior labrum using arthroscopic scissors. 10 cc of 0.25% bupivacaine with epinephrine was infiltrated about a 3 cm longitudinal incision at the inferior margin of the pectoralis major localized over the long head of the biceps tendon. Blunt and sharp dissection were used to expose the tendon in the bicipital groove. The tendon was brought out of the wound and kept off the skin on top of a blue towel. The correct location for sub-pectoral fixation was localized, prepped with a rasp, and then drilled with a 3.2 mm drill pin in a unicortical fashion. Using a fiber loop suture the tendon was prepped from the musculotendinous junction a few centimeters proximal. The excess tendon was amputated. The free suture ends were then passed through the unicortical button implant. The drill pin was removed and the implant was placed into the humeral intramedullary canal. The button was flipped and the sutures were tensioned bringing the tendon down to bone. Tension and fixation were then tested and found to be appropriate. The suture tails were brought on either side of the tendon and then tied compressing tendon to bone. The wound was copiously irrigated with normal saline. A moist lap was placed into the wound for later repair. Arthroscope was inserted back into the shoulder joint, rigid cannulas inserted anteriorly high and low above the subscapularis targeting the repair zone. The labral tear was more thoroughly probed and inspected with good tissue quality. He was then mobilized with elevators for best reduction and glenoid tissue interface rasp to optimize healing. Starting low around 7:00 the lasso was used to shuttle a suture tape FiberLink around the labrum while incorporating adjacent capsule and AIG HL tissue and then the eccentric drill guide used to drill I then repair suture loaded with appropriate tension and push lock anchor placed with excellent reduction and fixation of the anterior-inferior capsular labral tissue at this level. This was repeated at 8:00 and 9:00 for 3 total repair sutures and anchors nicely completing the repair. There was no additional tear required repair more anteriorly inferiorly, superiorly, or posteriorly was not indicated lack of significantly capacious capsule or multidirectional instability The shoulder was drained of arthroscopic fluid. All portal sites were copiously irrigated. These incisions were closed using 3-0 Monocryl in a buried fashion and then covered with Mastisol, Steri-Strips, Xeroform, dry gauze, and ABDs. The biceps incision was irrigated and subcutaneous tissue was closed using 3-0 Monocryl in a buried interrupted fashion. Skin was closed using 3-0 Monocryl in a buried subcuticular running fashion. Skin glue was applied over the incision. Mastisol was applied about the incision. The incision was covered with Telfa, gauze, and covered with a Tegaderm dressing. The dressings were covered and secured with Medipore tape. The operative extremity was placed into a sling for immobilization. The patient awoke from anesthesia without complication and was transferred to the recovery room in a stable condition.
--- NOTE | 2024-08-20 07:37 | W.ANESNERVE ---
Nerve Block Single Injection Procedure Date and Time Date Performed: 08/20/24 Procedure Start: : Location Where Procedure Performed Procedure Location: Day Surgery Unit Reason Performed: Postoperative Analgesia Requesting Provider: Bogdan Saleh Timeout Performed Timeout Performed: Yes Monitoring Used ECG, Blood Pressure and SpO2 Sterility Sterility: Hand Hygiene, Surgical Cap, Surgical Mask, Sterile Gloves and Chlorhexidine Sedation Given During Procedure Sedation Given (Indicate Dose Given): Versed IV Dose:: 2 mg Patient Mental Status Patient Mental Status: Sedate with meaningful communication Nerve Block 1st Nerve Block: Laterality: Left Block Type: Interscalene Ultrasound Image Saved?: Yes Needle / Catheter Used: 100mm SonoPlex II Local Anesthetic Bolus (Indicate Dose Given): Lidocaine used for local infiltration of skin, Injected in 3-5ml increments after negative blood aspiration, Bupivacaine 0.5% Dose:: 10 ml and Exparel Dose:: 10 ml Additives (Indicate Dose Given): Normal Saline Ultrasound: Sterile probe cover and gel used Nerve Stimulator: Supplement to Ultrasound use and No twitch or parasthesia noted < 0.5 mA Paresthesia: Left Paresthesia Duration: Transient Procedure Tolerated: No Complications and Patient tolerated well Procedure Outcome: Successful Performed By: Imtiaz Wilburn
[2024-08-20] MEDS: ceFAZolin 2 GM/50 ML BAG IVPB (08:06)
[2024-08-20] MEDS: TRANEXAMIC ACID/SOD. CHL. 1,000 MG/100 ML BAG 600 MG IVPB (08:12)
[2024-08-20] MEDS: Bupivacaine 0.25% Pres-Free W/EPI 30 ML VIAL (08:23)
[2024-08-20] MEDS: EPINEPHrine 10 MG/10 ML ML (10:00)
--- NOTE | 2024-08-20 11:47 | W.ANESPOSTOP ---
Postoperative Evaluation Date, Time and Location Date Performed: 08/20/24 Time Performed: 11:15 Patient Location: Day Surgery Unit Vital Signs Most Recent Imported Vital Signs: Most Recent Vital Signs Temp Pulse Resp BP Pulse Ox 36.5 C 62 16 120/65 96 08/20/24 11:17 08/20/24 11:17 08/20/24 11:17 08/20/24 11:17 08/20/24 11:17 Pain Score Most Recent Pain Score: Most Recent Pain Score Pain Level 0 08/20/24 11:17 Assessment Mental Status: Arousable with meaningful communication Airway and Respiratory Function: Patent airway with normal (patient baseline) respiratory exam Cardiovascular Function: Hemodynamically Stable Hydration Status: Adequately Hydrated Nausea & Vomiting: No Nausea or Vomiting Pain: Pt. Denies Any Pain Peripheral Nerve Block: Regional nerve block not resolved at time of post operative discharge
== END 2024-08-20 11:49 | disposition home or self-care (01) ==
PROVIDERS: PCP Nurse Practitioner Family; Visit Provider Student in an Organized Health Care Education/Training Program
PROC: (CPT 29805; principal; 2024-08-20 07:30)
DX: M25.312 Other instability, left shoulder (principal); M75.22 Bicipital tendinitis, left shoulder
CPT/HCPCS: 23430; 29806; 29822; 76942; 81025; C9290; J0131; J0665; J0690; J1100; J1171; J1885; J2250; J2371; J2405; J2704

== ENCOUNTER 2024-09-26 10:06 | Emergency (ER) | payer OTHER, SELFPAY ==
--- NOTE | 2024-09-26 10:00 | RT.EKG_ITS ---
APPROVED REPORT Exam: Resting ECG Reason for Exam: Abd Pain Patient Location: E HR:77 bpm ECG Measurements Heart Rate 77 AXIS SD 140 P 52 QRSd 90 QRS 42 QT 377 T 38 QTc 428 Conclusion Sinus rhythm...normal P axis, V-rate 60- 99 Physician: no stemi
[2024-09-26 10:10] VITALS: BP 159/93; PULSE 70; PULSE 78; RESP 16; TEMP 36.8; O2SAT 100; O2SAT 98
--- NOTE | 2024-09-26 10:15 | DI.US_ITS ---
Exam(s) US ABDOMEN LIMITED EXAM: US ABDOMEN LIMITED CLINICAL HISTORY: eval rlq for appe TECHNIQUE: Ultrasound abdomen performed using standard protocol. COMPARISON: No exams were available for comparison FINDINGS: The right lower quadrant was scanned. The appendix was not identified. IMPRESSION: The appendix was not visualized. Appendicitis not excluded. DATA REPOSITORY:
--- NOTE | 2024-09-26 10:29 | DI.US_ITS ---
Exam(s) US PELVIS TRANSVAGINAL EXAM: US PELVIS TRANSVAGINAL CLINICAL HISTORY: rlq pain, eval for ectopic and ovarian pathology TECHNIQUE: Transabdominal and transvaginal imaging was performed using standard protocol. COMPARISON: US US ABDOMEN LIMITED from 09/26/2024 FINDINGS: UTERUS: Retroverted. 8.0 x 5.4 x 6 0.0 cm Endometrium: 11 mm 5 millimeter gestational sac noted within the endometrium near the fundus, toward the right. No pole or yolk sac visible. Myometrium: Unremarkable. Cervix: Unremarkable. OVARIES: Right: Cyst or mass: None. Left: Cyst or mass: None. DOPPLER: Color: Symmetric and uniform flow to both ovaries. No hyperemia. CUL-DE-SAC: Free fluid: Small amount of fluid. IMPRESSION: 1. Very early gestational sac within endometrium.. 2. Unremarkable bilateral ovaries. 3. No ectopic identified. 4. Small amount of free fluid. DATA REPOSITORY:
--- NOTE | 2024-09-26 10:30 | W.ED.GENAD ---
Discharge Plan Disposition Patient Disposition: Home Condition: Good Discharge Details Clinical Impression: Abdominal pain Primary Care Provider: Kim Campuzano ED Provider: Jt Nguyen Home Meds and New Rx's Prescriptions: New cephalexin 500 mg capsule 500 mg PO QID 5 Days Qty: 20 0RF No Action DHA 200 mg capsule 200 mg PO DAILY acetaminophen 325 mg Tablet 650 mg PO Q4H PRN PRNQty: 0 0RF alpha lipoic acid 600 mg capsule 600 mg PO BID PRN (Reason: neuropraxia) Discharge Instructions Instructions: Abdominal pain Additional Instructions: At this time your workup is returned very reassuring. There is no evidence of significant concerning abnormality on your ultrasound, or your labs. There is a very questionable mild urinary tract infection, and out of an abundance of precaution with your symptoms and your current status we will start you on a short course of antibiotics for coverage of this. This has been sent to your pharmacy. It is critical that you continue to monitor your symptoms very closely. Watch closely for worsening of your pain, transitioning of your pain to a different location, fever or chills or other complaint. If you do notice a change in your symptoms, this may represent a new or developing pathology. Please not hesitate to return for reassessment. We have contacted your obstetrics retail sales consultant and they would like to follow-up with you shortly. If you notice any worsening of your symptoms, or any new symptoms such as vomiting, diarrhea, fever, chills, shortness of breath, chest pain, numbness, weakness, or fainting , please return immediately to the emergency department for reevaluation. Please follow up with your primary care provider as soon as possible for reassessment and reevaluation. As always, it was a pleasure participating in your medical care today. Referrals: Kim Campuzano NP [Primary Care Provider] - [facility] General Date/Time Provider Initiated Documentation: 09/26/24 10:10. HPI Narrative: This is a 24-year-old female with past medical history of , who is a G2, P1 currently 5 weeks who presents today for evaluation of abdominal pain and chest pain. Patient states that about 48 hours ago she developed gradual onset right lower quadrant abdominal pain. It was achy in nature, and is worsened over time. It has not gone anywhere else to radiated anywhere else. She has had no vaginal discharge, urinary pain or dysuria, nausea vomiting or diarrhea. She does have history of HSV, but denies any previous sexually transmitted infections. She denies any vaginal bleeding. She has not had a formal ultrasound as of yet. She denies any fever or chills. Additionally the patient also complains of mild chest achiness tightness and burning. She does admit to mild pleuritic component. She denies any recent long trips, flights, surgeries or procedures. She has not had any history of PE nor does she have a family history of emboli or clots. She denies any cough or hemoptysis. She denies any calf pain or swelling or tenderness. No other complaints at this time. She does not smoke. Related Data Home Medications ?Medication ?Instructions ?Recorded ?Confirmed acetaminophen 325 mg tablet 650 mg (2 x 325 mg) PO Q4H PRN PRN 07/06/23 09/26/24 #0 tabs docosahexaenoic acid 200 mg 200 mg PO DAILY 09/22/24 09/26/24 capsule ( DHA) alpha lipoic acid 600 mg capsule 600 mg PO BID PRN neuropraxia 09/26/24 09/26/24 cephalexin 500 mg capsule 500 mg PO QID 5 days #20 caps 09/26/24 Previous Rx's ?Medication ?Instructions ?Recorded acetaminophen 325 mg tablet 650 mg (2 x 325 mg) PO Q4H PRN PRN 07/06/23 #0 tabs cephalexin 500 mg capsule 500 mg PO QID 5 days #20 caps 09/26/24 Allergies Allergy/AdvReac Type Severity Reaction Status Date / Time nickel AdvReac Unknown Skin Rash Verified 09/26/24 10:24 General Stated Complaint: SNOUT PULLER KATY: 3 Review of Systems All systems reviewed & are unremarkable except as noted in HPI and below Exam Narrative Exam Narrative: 1.Const: Well-nourished, Well-developed, appearing stated age 2.Eyes: PERRL, no conjunctival injection, and symmetrical lids. 3.ENT: Atraumatic external nose and ears. Moist MM. Neck: Symmetric, trachea midline, No thyromegaly. 4.CVS: +S1/S2, Peripheral pulses 2+ and equal in all extremities. Brisk capillary refill in all extremities. 5.RESP: Unlabored respiratory effort. Clear to auscultation bilaterally. No wheezes rales or rhonchi 6.GI: Soft, nondistended. No guarding or rebound. Mild right lower quadrant achiness on palpation. No evidence of acute surgical abdomen. No CVA tenderness. Negative heel strike test. 7.MSK: Normocephalic/Atraumatic, Extremities w/o deformity or ttp No cyanosis or clubbing, Normal movement of all extremities 8.Skin: Warm, Dry. No rashes or lesions. 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 Sensation grossly intact, no focal neurologic deficits. 10.Psych: (AAO) x3. Appropriate mood and affect Course Vital Signs Vital signs: Vital Signs Temperature 36.8 C 09/26/24 10:10 Pulse 78 09/26/24 10:10 Respiratory Rate 16 09/26/24 10:10 Blood Pressure 159/93 H 09/26/24 10:10 Pulse Oximetry 98 09/26/24 10:10 Temperature 36.8 C 09/26/24 10:10 Pulse 78 09/26/24 10:10 Respiratory Rate 16 09/26/24 10:10 Respiratory Effort Normal, Non-Labored 09/26/24 10:25 Blood Pressure 159/93 H 09/26/24 10:10 Pulse Oximetry 98 09/26/24 10:10 Pain Level 5 09/26/24 10:10 Medical Decision Making This is a 24-year-old female with past medical history of , who is a G2, P1 currently 5 weeks who presents today for evaluation of abdominal pain and chest pain. Patient states that about 48 hours ago she developed gradual onset right lower quadrant abdominal pain. It was achy in nature, and is worsened over time. It has not gone anywhere else to radiated anywhere else. She has had no vaginal discharge, urinary pain or dysuria, nausea vomiting or diarrhea. She does have history of HSV, but denies any previous sexually transmitted infections. She denies any vaginal bleeding. She has not had a formal ultrasound as of yet. She denies any fever or chills. Additionally the patient also complains of mild chest achiness tightness and burning. She does admit to mild pleuritic component. She denies any recent long trips, flights, surgeries or procedures. She has not had any history of PE nor does she have a family history of emboli or clots. She denies any cough or hemoptysis. She denies any calf pain or swelling or tenderness. No other complaints at this time. She does not smoke. Exam demonstrates right lower quadrant achiness, no guarding or rebound though. No evidence of an acute surgical abdomen. No flank or CVA tenderness. Differential includes ectopic, appendicitis, ovarian cyst, or round ligament strain. Will evaluate for these concerning etiologies, treat with OMF, monitor closely and reassess. 12:55 PM Laboratory workup has returned, no white count bandemia or left shift. Lactate is relatively unremarkable at 1.5, electrolytes normal, renal function normal. Troponin normal x 2. Procalcitonin less than 0.1. Beta hCG is 3434. Still pending urinalysis and D-dimer test. Rh is Rh+. Ultrasonography does not show any evidence of appendicitis, but the appendix was not able to be visualized. OB ultrasound demonstrates gestational sac within the endometrium, unremarkable bilateral ovaries, no ectopic was identified, but there is a small amount of free fluid pelvis. Repeat exam continues to show no evidence of an acute surgical abdomen. Mild achiness in the right lower quadrant, but certainly no guarding or rebound. With the notable reassuring workup no white count, no left shift, a benign lactate, and a normal procalcitonin, I am certainly reassured that that in conjunction with her physical exam at this time appears clinically inconsistent with acute appendicitis of significance. That being said I do feel that she still requires close monitoring and follow-up with the next 24 to 48 hours to see if symptoms transition or worsen. I did contact obstetrics gynecology and spoke with Dr. Parada briefly. I informed her my desire to have close follow-up for potential continued obstetrics evaluation, and she understands and they will follow-up closely. 1:30 PM Serial troponins are normal, D-dimer is negative. Urinalysis does show some epithelial cells but also shows trace leuk esterase and bacteria. Although there is a low likelihood for severe UTI, with her symptomatology and the urinalysis and her status of , I do feel that short course of Keflex for antibiotics is reasonable considering the risks of infection for the patient at her current status. We will give a 5-day course of Keflex. On reassessment patient still demonstrates a nonsurgical abdominal exam. She has mild right lower quadrant achiness, but no guarding or rebound. No other concerning abnormality. The remainder of her exam is very unremarkable and does not represent evidence to suggest an acute surgical abdomen, acute appendicitis, ovarian torsion, tubo-ovarian abscess, or other acute life-threatening surgical pathology. Patient stable for discharge. Patient will follow-up closely with obstetrics. I have extensively reviewed the treatment plan and discharge instructions with the patient. I have addressed all patient concerns at this time. The patient was made aware of what symptoms to monitor for that would warrant a return to the emergency department. Discussed the plan with the patient, they demonstrate verbal understanding and agreement with our assessment and plan at this time. The documentation in this chart was dictated using [employer] dictation software. Please excuse any dictation errors. FINDINGS: The right lower quadrant was scanned. The appendix was not identified. IMPRESSION: The appendix was not visualized. Appendicitis not excluded. FINDINGS: UTERUS: Retroverted. 8.0 x 5.4 x 6 0.0 cm Endometrium: 11 mm 5 millimeter gestational sac noted within the endometrium near the fundus, toward the right. No pole or yolk sac visible. Myometrium: Unremarkable. Cervix: Unremarkable. OVARIES: Right: Cyst or mass: None. Left: Cyst or mass: None. DOPPLER: Color: Symmetric and uniform flow to both ovaries. No hyperemia. CUL-DE-SAC: Free fluid: Small amount of fluid. IMPRESSION: 1. Very early gestational sac within endometrium.. 2. Unremarkable bilateral ovaries. 3. No ectopic identified. 4. Small amount of free fluid. Quality:SDOH Health Related Social Needs: No Data to Display PFSH All Active Problems (Updated 09/26/24 @ 13:32 by Jt Nguyen DO) Abdominal pain (Acute) Delayed menses (Acute) Neurapraxia of left upper extremity (Acute) Tendinitis of long head of biceps brachii of left shoulder (Acute) Sensation of fullness in left ear (Acute) Positive STU (antinuclear antibody) (Acute) Migraine headache with aura (Acute) Chronic headache (Acute) Nonspecific paroxysmal spell (Acute) Back pain (Acute) Panic (Acute) Pulsatile tinnitus of left ear (Chronic) Labral tear of shoulder (Chronic) s/p Left shoulder arthroscopy with labral repair/stabilization, debridement, and open biceps tenodesis 9/27/24 Instability of left shoulder joint (Chronic) Genital herpes (Acute) Macular dystrophy (Acute) Right eye, followed by [facility] Medical History Generalized anxiety disorder Chronic right flank pain Arthralgia Depressive disorder Surgical History Status post primary low transverse section (07/04/23) Failed induction. intolerance of labor. Delivery of a viable male with loose body cord x 1 Family History Mother Asthma Alcohol abuse Depression Colon cancer Hypertension Father Bipolar disorder Alcohol abuse Sister Alcohol abuse Depression Brother No problems noted. Brother Alcohol abuse Maternal Grandfather , at 63 Brain cancer Depression Heart disease Hyperlipidemia Hypertension Type 2 diabetes mellitus Maternal Grandmother Depression Hyperlipidemia Breast cancer diagnosed age 70 Paternal Grandfather , at 52 Brain cancer Type 2 diabetes mellitus Alcohol abuse Heart disease Hyperlipidemia Hypertension Paternal Grandmother , 50s Alcohol abuse Lung cancer Depression Social History Smoking/Tobacco Use Status: Never Second Hand Exposure: Yes Smoking risk assessment performed?: Yes Alcohol Intake: current Alcohol Intake frequency: holidays/special occasions only Alcohol type: wine Drug use: Rarely Substance use type: marijuana Details: Last marijuana use over a month ago. Caregiver/Support person: No Household members: spouse and children Housing: house Number of Children: 1 Communication Needs: None Education Level: high school Do you need help understanding health information?: Never current occupation: Special Machine Operator Pets and animals: Yes Pets and animals: cat(s) Sexually active: Yes Do you think of yourself as: straight/heterosexual Current gender identity: female What is your relationship status?: living with partner How often do you talk on the phone with friends or family?: twice per week How often do you get together with friends or relatives?: three or more times per week How often do you attend buddhism or orthodox services?: decline to answer Do you belong to any clubs or organized social groups?: no Panel score (0-1 are the most socially isolated patients): 2 What type of physical activity do you participate in: other Details: lift at work Duration: > 90 minutes/day Frequency: 5-6 times per week Dawn/Confucianism: None Special dawn needs: No Agree to transfusion: Yes Seatbelt use: always Helmet use: Yes Helmet use: always Drive intox or ride w/intox tow truck driver: No Working smoke detector in home: Yes Carbon monox detector in home: Yes Firearms in home: Yes Firearms unloaded and locked: Yes Do you feel safe at home: Yes Do you feel safe in your relationship?: Yes Victim of physical abuse: No Victim of emotional abuse: No Victim of sexual abuse: No Would you like helpful sources: No Female Reproductive History Menstrual control method: pills History History 1 Para 1 Hx # Term Pregnancies 1 Multiple births 0 Hx # Pregnancies 0 Ectopic pregnancies 0 AB induced 0 Hx Number of Living Children 1 AB spontaneous 0 Past Pregnancies Del. Date GA/Weeks # Preg Succ Route Wgt Sex Labor Lgth Anesthesia Location Prov Complic 07/04/23 41 No Yes 3345.244 g Male adrian Yu DO Delivery Date: 07/04/23 Last Updated by: MERCEDES Meneses; failed induction; intolerance of labor
[2024-09-26 10:43] LABS: Abs Immature Grans 0.02 10^3/uL (0.0-0.06); Absolute Basophil Count 0.02 10^3/uL (0.0-0.2); Absolute Eosinophil Count 0.01 10^3/uL (0.0-0.7); Absolute Lymphocyte Count 1.72 10^3/uL (1.2-3.4); Absolute Monocyte Count 0.31 10^3/uL (0.1-0.8); Absolute Neutrophil Count 4.56 10^3/uL (1.2-6.7); Basophils % 0.3 %; Eosinophils % 0.2 %; HCT 39.3 % (36.0-46.0); HGB 13.4 g/dL (11.2-15.7); Immature Grans % 0.3 %; Lactate 1.5 mmol/L (0.6-1.4); Lymphocytes % 25.9 %; MCHC 34.1 % (32.0-36.0); MCV 85 fL (80-95); MPV 10.3 fL (8.0-11.0); Monocytes % 4.7 %; Neutrophils % 68.6 %; Platelet Count 151 10^3/uL (130-400); RBC 4.62 10^6/uL (3.93-5.22); RDW 12.6 % (11.7-14.6); RDW-SD 38.6 fL; WBC 6.64 10^3/uL (4.4-10.8)
[2024-09-26 11:17] LABS: Procalcitonin < 0.1 ng/mL
[2024-09-26 11:23] LABS: ALT 19 U/L (14-59); AST 16 U/L (15-37); Albumin 3.7 g/dL (3.4-5.0); Alkaline Phosphatase 66 U/L (46-116); Anion Gap 9.7 mmol/L (3-11); BUN 8 mg/dL (7-18); Bilirubin, Total 0.33 mg/dL (0.2-1.0); CO2 26.3 mmol/L (21.0-32.0); CREATININE 0.8 mg/dL (0.55-1.02); Calcium 8.7 mg/dL (8.5-10.1); Chloride 107 mmol/L (98-107); Estimated GFR 105.45 (mL/min/1.73m2); Glucose 94 mg/dL (74-106); Potassium 4.1 mmol/L (3.5-5.1); Sodium 143 mmol/L (136-145)
[2024-09-26 11:24] LABS: HCG Quant, Pregnancy 3434 mIU/mL (1-3); Troponin I < 4 ng/L (<or=51)
[2024-09-26] MEDS: ACETAMINOPHEN 1,000 MG/100 ML BAG 400 MG IVPB (11:35)
[2024-09-26 12:18] LABS: Troponin I < 4 ng/L (<or=51)
--- NOTE | 2024-09-26 12:35 | DI.VRAD_ITS ---
PROCEDURE INFORMATION: Exam: US , Transvaginal Exam date and time: 09/26/2024 10:38 AM Age: 24 years old Clinical indication: complicated by abdominal or pelvic pain; Right lower quadrant; First trimester (<14 weeks 0 days); Gestational age or lmp: Lmp 08/23/2024; ; Additional info: Primariy rlq/rt adnexa pain LABS AND CLINICAL REPORTS: Last menstrual period start date: 08/23/2024 TECHNIQUE: Imaging protocol: Real-time transvaginal obstetrical ultrasound of the maternal pelvis with image documentation. Transvaginal imaging was used for better evaluation of the fetus, adnexa, and/or cervix. COMPARISON: US ABD PELV TRANSVAG NON-OB 08/13/2022 11:00 AM FINDINGS: Gestation: Single intrauterine gestational sac. BIOMETRY: Mean sac diameter: Mean sac diameter 0.5 cm. MATERNAL: Uterus: Uterus measures 8 cm x 5.4 cm x 6 cm. Right ovary/adnexa: Right ovary measures 3.6 cm x 3.8 cm x 2.5 cm. Left ovary/adnexa: Left ovary measures 3.2 cm x 1.3 cm x 2.5 cm. Other findings: There is bilateral adnexal free fluid. IMPRESSION: Single intrauterine gestational sac. Dictated and Authenticated by: Yaw Villasenor MD. Ordering:BRYANT Waters MD
--- NOTE | 2024-09-26 12:36 | DI.VRAD_ITS ---
PROCEDURE INFORMATION: Exam: US Abdomen, Limited; Appendix Exam date and time: 09/26/2024 11:06 AM Age: 24 years old Clinical indication: Abdominal pain; ; Additional info: Primariy rlq/rt adnexa pain TECHNIQUE: Imaging protocol: Real time ultrasound of the abdomen with image documentation. Limited exam focused on the appendix. COMPARISON: US ABD PELV TRANSVAG NON-OB 08/13/2022 11:00 AM FINDINGS: Appendix: The appendix is not identified. IMPRESSION: Appendix not identified. If there is continued clinical concern for acute appendicitis, cross-sectional imaging is recommended. Dictated and Authenticated by: Yaw Villasenor MD. Ordering:BRYANT Waters MD
[2024-09-26 12:55] LABS: D-Dimer 296 ng/mlFEU (<500)
[2024-09-26 12:58] LABS: Bilirubin Negative (Negative); Blood Negative (Negative); Clarity Sl Cloudy (Clear); Glucose Negative (Negative); Ketones Negative (Negative); Leukocyte Esterase Trace (Negative); Nitrite Negative (Negative); Specific Gravity 1.025 (1.005-1.025); Urobilinogen 0.2 mg/dL (Up to 0.2); pH 6.5 (5-8)
[2024-09-26 13:07] LABS: Bacteria Few HPF (Negative); C & S Indicated? No; Casts Negative LPF (Negative); Crystals Negative HPF (Negative); Epithelial Cells Moderate HPF (Negative); Mucus Negative (Negative); RBC 0-2 HPF (0-2); WBC 0-2 HPF (0-5)
[2024-09-26 13:24] VITALS: BP 110/59; PULSE 77; RESP 18; O2SAT 97
[2024-09-26 13:40] LABS: Troponin I 4 ng/L (<or=51)
[2024-09-26 13:42] VITALS: BP 110/59; PULSE 77; RESP 18; O2SAT 97
[2024-09-26] MEDS: Cephalexin 500 MG CAP PO (13:42)
== END 2024-09-26 13:42 | disposition home or self-care (01) ==
PROVIDERS: Emergency Provider Student in an Organized Health Care Education/Training Program; PCP Nurse Practitioner Family
DX: R10.31 Right lower quadrant pain (principal); Z33.1 Pregnant state, incidental; R07.9 Chest pain, unspecified
CPT/HCPCS: 36415; 80053; 84145; 86900; 86901; 93005; 96365; 99284; 76705; 76830; 76856; 81003; 81015; 83605; 84484; 84702; 85025; 85379; 93010; J0131

== ENCOUNTER 2024-11-19 01:54 | Outpatient (CLI) | payer OTHER, SELFPAY ==
[2024-11-19 14:24] LABS: Panorama Kit Sent via Fed Ex
[2024-11-19 14:33] LABS: Abs Immature Grans 0.02 10^3/uL (0.0-0.06); Absolute Basophil Count 0.01 10^3/uL (0.0-0.2); Absolute Eosinophil Count 0.01 10^3/uL (0.0-0.7); Absolute Lymphocyte Count 1.82 10^3/uL (1.2-3.4); Absolute Monocyte Count 0.27 10^3/uL (0.1-0.8); Absolute Neutrophil Count 6.31 10^3/uL (1.2-6.7); Basophils % 0.1 %; Eosinophils % 0.1 %; HCT 36.1 % (36.0-46.0); HGB 12.3 g/dL (11.2-15.7); Immature Grans % 0.2 %; Lymphocytes % 21.6 %; MCH 29.6 pg (27.0-33.0); MCHC 34.1 % (32.0-36.0); MCV 87 fL (80-95); MPV 10.4 fL (8.0-11.0); Monocytes % 3.2 %; Neutrophils % 74.8 %; Platelet Count 158 10^3/uL (130-400); RBC 4.16 10^6/uL (3.93-5.22); RDW 13.1 % (11.7-14.6); RDW-SD 41.1 fL; WBC 8.44 10^3/uL (4.4-10.8)
[2024-11-19 15:46] LABS: TSH (W/Ref FT4) 1.06 uIU/mL (0.36-3.74)
[2024-11-21 09:17] LABS: HIV-1/2 Ag & Ab Screen Negative (Negative)
[2024-11-21 14:37] LABS: Syphilis IgG w/Reflex Nonreactive (Nonreactive)
[2024-11-22 10:08] LABS: Rubella IgG Ab (UVM) Positive (See Note)
[2024-11-22 10:10] LABS: Varicella IgG Antibody Positive (See Note)
[2024-11-22 11:27] LABS: Hepatitis C Ab w Rflx HCV PCR Negative (Negative)
[2024-11-22 11:59] LABS: Hepatitis B Surface Ag Negative (Negative)
== END 2024-11-19 01:55 | disposition home or self-care (01) ==
LOC: LBO 01:54
PROVIDERS: Advanced Practice Midwife; PCP Nurse Practitioner Family; Visit Provider Advanced Practice Midwife
DX: Z34.91 Encounter for supervision of normal pregnancy, unspecified, first trimester (principal); Z3A.12 12 weeks gestation of pregnancy
CPT/HCPCS: 36415; 86787; 86803; 86850; 86900; 86901; 87340; 87389; 84443; 85025; 86762; 86780

== ENCOUNTER 2024-11-19 14:10 | Outpatient (REF) | payer OTHER, SELFPAY ==
--- NOTE | 2024-11-19 14:00 | PAPFT_PTH ---
PATIENT: Asiya Tate LOC: [facility] U#:[id number] AGE/SX: 24/F ROOM: RE11/19/[address]: Alesia Singh CNM : 2000 BED: DIS: 11/19/2024 SPEC #: [id number] RECD: 11/19/24 16:06 STATUS: ISABELLA ARGUELLES #: [id number] SEVERO: 11/19/24 14:[address]: Alesia Singh DEPT: [facility] Cytology RECD BY: Leatha Matute ENTERED: 11/19/24 16:07 SP TYPE: PAPFT OTHR DR: Kim Campuzano, SUPERVISOR [employer] Tissues: 1 - CX/ENDOCX FOR PAP SMEARS Procedures: PAP THIN PREP/[facility] Screening Comments: [id number] (CHLAMYDIA/GC)
[2024-11-22 12:19] LABS: Chlamydia Result Negative (Negative); GC Result Negative (Negative)
== END 2024-11-19 14:11 | disposition home or self-care (01) ==
LOC: LBN 14:10
PROVIDERS: PCP Nurse Practitioner Family; Visit Provider Advanced Practice Midwife
DX: Z34.91 Encounter for supervision of normal pregnancy, unspecified, first trimester (principal); Z3A.12 12 weeks gestation of pregnancy
CPT/HCPCS: 87491; 87591; 88142; 87086

== ENCOUNTER 2024-12-16 12:25 | Emergency (ER) | payer OTHER, SELFPAY ==
[2024-12-16 12:28] VITALS: BP 127/77; PULSE 69; RESP 16; TEMP 36.9; O2SAT 99
--- NOTE | 2024-12-16 12:30 | DI.US_ITS ---
Exam(s) US LOWER EXTREMITY VENOUS LT EXAM: US LOWER EXTREMITY VENOUS LT CLINICAL HISTORY: eval for dvt TECHNIQUE: Grayscale, color, and doppler imaging of the deep venous system of the left lower extremi ty was performed. COMPARISON: US POCUS EXAM from 10/19/2024 FINDINGS: There is no evidence of intraluminal thrombus and there is normal compression and augmentation demons trated within the common femoral vein, femoral vein, and popliteal vein. In the ipsilateral calf the interrogated veins also exhibit normal compression/ augmentation properti es. The ipsilateral saphenofemoral junction is patent. There are varicosity in the distal left thigh which exhibit normal compression. Also noted is a 2.1 x 1.1 x 0.3 cm finding in mid anterior left calf which has appearance of probable hematoma. IMPRESSION: 1. No evidence of DVT in the left lower extremity. Other finding as above. DATA REPOSITORY:
[2024-12-16 13:12] VITALS: RESP 18
[2024-12-16 13:47] VITALS: BP 115/58; PULSE 66; RESP 18; O2SAT 99
--- NOTE | 2024-12-16 14:30 | W.ED.GENAD ---
Discharge Plan Disposition Patient Disposition: Home Discharge Details Clinical Impression: Bruise, Calf pain Primary Care Provider: Kim Campuzano ED Provider: Nadya Gomez Home Meds and New Rx's Prescriptions: No Action valacyclovir [Valtrex] 1 gram tablet 1,000 mg PO DAILY PRN (Reason: herpes outbreak) 5 Days Qty: 30 1RF DHA 200 mg capsule 200 mg PO DAILY Discharge Instructions Additional Instructions: Pain likely secondary to what ever caused the bruise There is no evidence of DVT on ultrasound You can try magnesium orally or topically to help with any calf cramping or other muscle cramping that might occur during HPI General Date/Time Provider Initiated Documentation: 12/16/24 12:36. Limitations to Documentation: no limitations. Information obtained by: patient. HPI Narrative: 24-year-old G2, P1 at 16 weeks presents for evaluation of left calf pain. She notes a bruise to the left calf that has been there for few days but denies any trauma. She reports that it is tender to palpation, but does not note any swelling. Reports that it hurts worse with walking. Has never had a blood clot before. Related Data Home Medications ?Medication ?Instructions ?Recorded ?Confirmed docosahexaenoic acid 200 mg 200 mg PO DAILY 09/22/24 12/16/24 capsule ( DHA) valacyclovir 1 gram tablet 1,000 mg PO DAILY PRN herpes 11/19/24 12/16/24 (Valtrex) outbreak 5 days #30 tabs Previous Rx's ?Medication ?Instructions ?Recorded valacyclovir 1 gram tablet 1,000 mg PO DAILY PRN herpes 11/19/24 (Valtrex) outbreak 5 days #30 tabs Allergies Allergy/AdvReac Type Severity Reaction Status Date / Time nickel AdvReac Unknown Skin Rash Verified 12/16/24 12:35 General Stated Complaint: Vascular KATY: 3 Exam Narrative Exam Narrative: Review of Systems: All systems reviewed & are unremarkable except as noted in HPI and below Well-developed, no acute distress NCAT PERRL, normal conjunctiva RRR Unlabored respiratory effort Left calf with bruising and scratch noted to the posterior aspect, it is soft no significant pain, no swelling symmetric in size to other side Course Vital Signs Vital signs: Vital Signs Temperature 36.9 C 12/16/24 12:28 Pulse 69 12/16/24 12:28 Respiratory Rate 16 12/16/24 12:28 Blood Pressure 127/77 12/16/24 12:28 Pulse Oximetry 99 12/16/24 12:28 Temperature 36.9 C 12/16/24 12:28 Temperature Source Temporal Artery Scan 12/16/24 12:28 Pulse 66 12/16/24 13:47 Respiratory Rate 18 12/16/24 13:47 Respiratory Effort Normal, Non-Labored 12/16/24 13:12 Respiratory Depth Normal 12/16/24 13:12 Respiratory Pattern Normal 12/16/24 13:12 Blood Pressure 115/58 L 12/16/24 13:47 Blood Pressure Position Sitting 12/16/24 12:28 Pulse Oximetry 99 12/16/24 13:47 Oxygen Delivery Method Room Air 12/16/24 12:28 Oxygen Flow Rate 0 12/16/24 12:28 Pain Level 6 12/16/24 12:28 Medical Decision Making Emergent evaluation of left calf pain. On examination, the patient does have sign of trauma to the left calf though she is unaware of any acute trauma. She has no other signs or symptoms consistent with a DVT and I doubt that the appearance of the bruising is consistent with cerulea dolens. An ultrasound was obtained due to her high risk of clotting due to . The ultrasound did not reveal a DVT. I advised to continue supportive care and pain control as needed. Quality:SDOH Health Related Social Needs: No Data to Display PFSH All Active Problems (Updated 12/16/24 @ 13:43 by Nadya Gomez MD) Calf pain (Acute) Bruise (Acute) (Chronic) Neurapraxia of left upper extremity (Chronic) Sensation of fullness in left ear (Chronic) Easy bruisability (Chronic) Negative von Willebrand's testing Migraine headache with aura (Chronic) Chronic headache (Chronic) Pulsatile tinnitus of left ear (Chronic) negative brain MRA and MRI Genital herpes (Chronic) Macular dystrophy (Chronic) Right eye, followed by [facility] History Generalized anxiety disorder Chronic right flank pain Arthralgia Depressive disorder Surgical History S/P arthroscopy of left shoulder (08/20/24) Left shoulder arthroscopy with labral repair/stabilization, debridement, and open biceps tenodesis Status post primary low transverse section (07/04/23) Failed induction. intolerance of labor. Delivery of a viable male infant with loose body cord x 1 Family History Mother Asthma Alcohol abuse Depression Colon cancer Hypertension Father Bipolar disorder Alcohol abuse Sister Alcohol abuse Depression Brother No problems noted. Brother Alcohol abuse Maternal Grandfather , at 63 Brain cancer Depression Heart disease Hyperlipidemia Hypertension Type 2 diabetes mellitus Maternal Grandmother Depression Hyperlipidemia Breast cancer diagnosed age 70 Paternal Grandfather , at 52 Brain cancer Type 2 diabetes mellitus Alcohol abuse Heart disease Hyperlipidemia Hypertension Paternal Grandmother , 50s Alcohol abuse Lung cancer Depression Social History (Updated 12/06/24 @ 08:57 by Bety Quinteros) Smoking/Tobacco Use Status: Never Second Hand Exposure: Yes Smoking risk assessment performed?: Yes Alcohol Intake: current Alcohol Intake frequency: holidays/special occasions only Alcohol type: beer Drug use: Occasionally Substance use type: marijuana Details: Last marijuana use over a month ago. Caregiver/Support person: No Household members: spouse and children Housing: house Number of Children: 1 Communication Needs: None Education Level: high school Do you need help understanding health information?: Never current occupation: [employer] Pets and animals: Yes Pets and animals: cat(s) Sexually active: Yes Do you think of yourself as: straight/heterosexual Current gender identity: female What is your relationship status?: living with partner How often do you talk on the phone with friends or family?: twice per week How often do you get together with friends or relatives?: three or more times per week How often do you attend baptist or episcopalian services?: decline to answer Do you belong to any clubs or organized social groups?: no Panel score (0-1 are the most socially isolated patients): 2 What type of physical activity do you participate in: other Details: lift at work Duration: > 90 minutes/day Frequency: 5-6 times per week Dawn/Alevism: None Special dawn needs: No Agree to transfusion: Yes Seatbelt use: always Helmet use: Yes Helmet use: always Drive intox 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 Date GA/Weeks # Preg Succ Route Wgt Sex Labor Lgth Anesthesia Location Prov Complic 07/04/23 41 No Yes 3345.244 g Male adrian Yu, Delivery Date: 07/04/23 Last Updated by: Alesia Singh IOL for postdates, deep decels @ 7 cm, Dev Salas
== END 2024-12-16 13:56 | disposition home or self-care (01) ==
PROVIDERS: Emergency Provider Emergency Medicine; PCP Nurse Practitioner Family
DX: S80.12XA Contusion of left lower leg, initial encounter (principal); M79.662 Pain in left lower leg; X58.XXXA Exposure to other specified factors, initial encounter; Z3A.16 16 weeks gestation of pregnancy
CPT/HCPCS: 99284; 93971; 99283

== ENCOUNTER 2025-02-11 16:50 | Outpatient (REF) | payer OTHER, SELFPAY ==
[2025-02-13 11:23] LABS: HSV 1 DNA Result Negative (Negative); HSV 2 DNA Result Negative (Negative)
== END 2025-02-11 16:51 | disposition home or self-care (01) ==
LOC: LBN 16:50
PROVIDERS: PCP Nurse Practitioner Family; Visit Provider Physician Assistant
DX: K13.70 Unspecified lesions of oral mucosa (principal); K12.0 Recurrent oral aphthae
CPT/HCPCS: 87529

== ENCOUNTER 2025-03-04 00:52 | Outpatient (CLI) | payer OTHER, SELFPAY ==
[2025-03-04 13:51] LABS: HCT 34.9 % (36.0-46.0); HGB 11.7 g/dL (11.2-15.7); MCH 30.3 pg (27.0-33.0); MCHC 33.5 % (32.0-36.0); MCV 90 fL (80-95); MPV 9.9 fL (8.0-11.0); Platelet Count 152 10^3/uL (130-400); RBC 3.86 10^6/uL (3.93-5.22); RDW 13.2 % (11.7-14.6); RDW-SD 42.9 fL; WBC 12.14 10^3/uL (4.4-10.8)
[2025-03-04 14:08] LABS: ALT 17 U/L (14-59); AST 17 U/L (15-37); Alkaline Phosphatase 65 U/L (46-116); Anion Gap 6.7 mmol/L (3-11); BUN 8 mg/dL (7-18); Bilirubin, Total 0.2 mg/dL (0.2-1.0); CO2 25.3 mmol/L (21.0-32.0); CREATININE 0.6 mg/dL (0.55-1.02); Calcium 8.5 mg/dL (8.5-10.1); Chloride 104 mmol/L (98-107); Estimated GFR 128.46 (mL/min/1.73m2); Glucose 116 mg/dL (74-106); Potassium 3.5 mmol/L (3.5-5.1); Sodium 136 mmol/L (136-145); Total Protein 6.5 g/dL (6.4-8.2)
[2025-03-04 14:15] LABS: Glucose,1 Hr (Glucola) 116 mg/dL (80-140)
== END 2025-03-04 00:53 | disposition home or self-care (01) ==
LOC: LBO 00:53
PROVIDERS: PCP Nurse Practitioner Family; Visit Provider Advanced Practice Midwife
DX: Z34.92 Encounter for supervision of normal pregnancy, unspecified, second trimester (principal)
CPT/HCPCS: 36415; 80053; 82950; 85027

== ENCOUNTER 2025-03-04 13:09 | Outpatient (RCR) | payer OTHER, SELFPAY ==
--- NOTE | 2025-03-08 15:30 | W.HOLTRPT ---
Date of service: 03/08/25 Time of Service: 15:30 Holter Monitor Report Referring Provider:: Dejah Allred Indications:: Palpitations Holter Monitor Note: This is a 48-hour Holter monitor. Rhythm throughout was sinus with an average heart rate of 78. Minimum was 52, maximum 159. There were very rare isolated atrial and ventricular ectopic beats. There was no atrial fibrillation, no high-grade AV block, no pauses greater than 3 seconds. No symptoms were reported
== END 2025-03-23 23:59 | disposition home or self-care (01) ==
LOC: CARDOPNVT 13:09
PROVIDERS: PCP Nurse Practitioner Family; Visit Provider Internal Medicine Cardiovascular Disease
DX: R00.2 Palpitations (principal)
CPT/HCPCS: 93225; 93226

== ENCOUNTER 2025-05-04 15:15 | Outpatient (REF) | payer OTHER, SELFPAY | END 2025-05-04 15:16 | disposition home or self-care (01) | LOC: LBN 15:15 | PROVIDERS: PCP Nurse Practitioner Family; Visit Provider Obstetrics & Gynecology | DX: Z34.93 Encounter for supervision of normal pregnancy, unspecified, third trimester (principal); Z3A.36 36 weeks gestation of pregnancy | CPT/HCPCS: 87081 ==

== ENCOUNTER 2025-05-10 01:49 | Outpatient (CLI) | payer OTHER, SELFPAY ==
--- NOTE | 2025-05-10 07:45 | DI.US_ITS ---
Exam(s) US OB SOREN WEIGHT EXAM: US OB SOREN WEIGHT CLINICAL HISTORY: Excessive weight gain in ,o26.00. TECHNIQUE: Transabdominal obstetrical ultrasound performed. COMPARISON: US US OB 2-3 TRIMESTER from 01/05/2025 US US OB F/U FACIAL/LVOT/RVOT from 01/10/2025 FINDINGS:: Number of fetuses: 1 position: Cephalic Placental location: Posterior no evidence of previa. BIOMETRIC DATA: BPD: 94, 38+ 2 weeks HC: 332, 37+ 6 weeks AC: 329, 36+ 5 weeks FL: 72, 36+ 6 weeks EFW: 3116 grams, 59 percentile, Composite Age: 37+ 3 weeks NAKUL: 28 May 2025 Heart Rate: 122 Amniotic fluid index: 13.3. Visually, amount of fluid is within normal limits. IMPRESSION: size and weight are within the expected range. DATA REPOSITORY:
== END 2025-05-10 02:09 ==
LOC: DI 01:49
PROVIDERS: PCP Nurse Practitioner Family; Visit Provider Obstetrics & Gynecology
DX: O26.03 Excessive weight gain in pregnancy, third trimester (principal); Z3A.38 38 weeks gestation of pregnancy
CPT/HCPCS: 76816

== ENCOUNTER 2025-05-18 14:15 | Outpatient (CLI) | payer OTHER, SELFPAY ==
[2025-05-18 14:24] VITALS: BP 113/74; PULSE 78; TEMP 36.5
[2025-05-18 14:26] VITALS: BP 113/74; PULSE 78
[2025-05-19 23:58] VITALS: BP 113/74; PULSE 78; TEMP 36.5
--- NOTE | 2025-05-19 23:58 | W.OBNST ---
Date of service: 05/19/25 Time of Service: 23:58 NST Evaluation Reason for NST Reasons for Nonstress Test: OTHER, SEE COMMENT Reason for NST Other: Decreased heart rate in office Gestational Age Gestational Age in Weeks and Days: 38 Weeks and 1Days Test and Monitor Explained Test/Monitor Explained: Test Explained and Monitor Explained Vital Signs Blood Pressure: 113/74 Pulse: 78 Temperature: 97.7 F NST Information Date on Monitor: 05/18/25 Time on Monitor: 14:23 Date off Monitor: 05/18/25 Time off Monitor: 15:12 Total Time on Monitor: 49 NST Interventions: PO Hydration NST Evaluation Patient States Movement: Present FHR Baseline: 125 Variability: Moderate 6-25 bpm Accelerations: 15x15 Decelerations: None NST Results: Reactive Note Ultrasound Done: N/A. NST Note NST Reviewed and Verified by: Eda Rios
== END 2025-05-18 15:20 ==
LOC: BCD 14:16 → OBS 14:19
PROVIDERS: PCP Nurse Practitioner Family; Visit Provider Obstetrics & Gynecology
DX: Z3A.38 38 weeks gestation of pregnancy (principal); O36.8331 Maternal care for abnormalities of the fetal heart rate or rhythm, third trimester, fetus 1
CPT/HCPCS: 59025

== ENCOUNTER 2025-05-31 05:29 | Outpatient (CLI) | payer OTHER, SELFPAY ==
--- NOTE | 2025-05-31 | DI.US_ITS ---
Exam(s) US ABDOMEN EXAM: US ABDOMEN CLINICAL HISTORY: cholicky RUQ pain; 39 weeks TECHNIQUE: Ultrasound of complete upper abdomen performed using standard protocol. COMPARISON: US US OB SOERN WEIGHT from 05/10/2025 FINDINGS: There is no ascites evident. LIVER: There are no hepatic lesions evident nor obvious dilatation of intrahepatic ducts. GALLBLADDER/BILIARY: There are no gallstones. No gallbladder wall edema nor pericholecystic fluid. The common hepatic duct isnot dilated, measuring 3mm at the level of aleah hepatis. PANCREAS: There is no evidence of pancreatic mass nor dilatation of the pancreatic duct. SPLEEN: There is mild splenomegaly. Spleen measures 14.3 cm. No splenic lesions identified. KIDNEYS:Kidneys exhibit normal size but have the appearance suspicious for possible medullary sponge disease bilaterally. There is a cyst in the superior pole the left kidney measuring 1.2 cm. No solid renal masses. No shadowing calculi within either kidney. No perinephric fluid. ABDOMINAL AORTA: There is no evidence of abdominal aortic aneurysm. IVC: Normal diameter where visualized. IMPRESSION: 1. No evidence of cholelithiasis nor dilatation of the biliary tree. 2. Appearance of both kidneys is that of probable bilateral medullary sponge kidney. There are no shadowing calculi seen in the kidneys and no hydronephrosis. No solid renal masses. 3. Mild splenomegaly is noted. DATA REPOSITORY:
[2025-05-31 05:56] VITALS: BP 125/81; PULSE 94; TEMP 37.3
--- NOTE | 2025-05-31 06:14 | PDOC.NST_ITS ---
Date of service: 05/31/25 Time of Service: 06:14 NST Evaluation Reason for NST Reasons for Nonstress Test: OTHER, SEE COMMENT Reason for NST Other: RUQ pain Gestational Age Gestational Age in Weeks and Days: 40 Weeks and 0Days Test and Monitor Explained Test/Monitor Explained: Test Explained Vital Signs Blood Pressure: 125/81 Pulse: 94 Temperature: 99.1 F Urine Results Urine Protein: Negative Urine Ketones: Positive Urine Glucose: Negative Urine Blood: Negative NST Information Time on Monitor: 05:25 NST Interventions: PO Hydration, Reposition Patient and Notify Provider Contraction Frequency: occasional, irregular NST Evaluation Patient States Movement: Present FHR Baseline: 130 Variability: Moderate 6-25 bpm Accelerations: 15x15 Decelerations: Variable NST Results: Reactive Note Ultrasound Done: N/A. NST Note Note: General: Well nourished female in no immediate distress Pulm: No overt respiratory distress Abd: Gravid. No fundal tenderness. Reports some tenderness with palpation in the RUQ Ext: No swelling Psych: Appropriate 25 yo (h/o x1) at 40 0/7 as dated by LMP equal to 8 wk US presents for concerning RUQ that started around 2 am. The pain has been severe enough to wake her from sleep and kept her from being able to lay back down. Pain also occurred two nights ago. Endorses nausea and vomiting. Denies fe vers/chills, headaches, visual changes. Denies vaginal bleeding or leakage. Reportedly ate a chicken sandwich for dinner. She did not have the pain after breakfast, yesterday, which consistent of eggs and sausage. Her FHT are cat 1 and toco is largely quiet. 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 A call down to [employer] revealed that two units have already been prepped given this history and are already being held for her in anticipation of her , tomorrow. An abdominal US found no evidence of associated pathology, though it did incidentally identify changes in the kidney suspicious for medullary spongey kidney disease. Ms. Tate denies any known h/o kidney issues either in her own personsl history nor her family's. Her Creatinine is noted to be normal for and she denies any issues with urination. We discussed the importance of following up on this after delivery. She is also incidentally noted to have lower platelets (117); however, she denies any known h/o platelet issues and she denies any s/sx of pre-eclampsia. Her blood pressures are appropriate on serial measures. The decrease in her platelets is most likely related to thrombocytopenia of . On further evaluation of the patient, she reports her pain is improved since arriving. She will discharged to home with plans to follow up tomorrow for scheduled section if she does not deliver before then. NST Reviewed and Verified by: Eda Rios
[2025-05-31 06:16] VITALS: BP 125/81; PULSE 94; TEMP 37.3
--- NOTE | 2025-05-31 06:33 | NUR.NOTE ---
Nursing Note: Pt arrived for NST due to right upper quadrant pain that comes and goes at a pain level of 5/10 per pt.VSS. Pt denies vaginal or fluid leaking and denies any problems with this . Lungs clear. Pt denies nausea and vomitng and has no edema. Pt is scheduled for a repeat C/S tomorrow morning. saw Pt and ordered labs and U/S this morning.
[2025-05-31 07:06] LABS: HCT 34.5 % (36.0-46.0); HGB 11.6 g/dL (11.2-15.7); MCH 29.4 pg (27.0-33.0); MCHC 33.6 % (32.0-36.0); MCV 87 fL (80-95); MPV 10.5 fL (8.0-11.0); Platelet Count 117 10^3/uL (130-400); RBC 3.95 10^6/uL (3.93-5.22); RDW 13.0 % (11.7-14.6); RDW-SD 41.1 fL; WBC 13.14 10^3/uL (4.4-10.8)
[2025-05-31 07:12] VITALS: BP 117/64; PULSE 79
[2025-05-31 07:15] VITALS: BP 117/64; PULSE 79; RESP 12; TEMP 36.5
[2025-05-31 07:39] LABS: ALT 16 U/L (14-59); AST 16 U/L (15-37); Albumin 2.5 g/dL (3.4-5.0); Alkaline Phosphatase 112 U/L (46-116); Anion Gap 10.5 mmol/L (3-11); BUN 10 mg/dL (7-18); Bilirubin, Total 0.3 mg/dL (0.2-1.0); CO2 23.5 mmol/L (21.0-32.0); Calcium 8.3 mg/dL (8.5-10.1); Chloride 105 mmol/L (98-107); Glucose 89 mg/dL (74-106); Potassium 3.9 mmol/L (3.5-5.1); Sodium 139 mmol/L (136-145); Total Protein 6.0 g/dL (6.4-8.2)
== END 2025-05-31 10:55 | disposition other institution (70) ==
LOC: BCD 05:34 → OBS 05:36
PROVIDERS: PCP Nurse Practitioner Family; Visit Provider Obstetrics & Gynecology
DX: O47.1 False labor at or after 37 completed weeks of gestation (principal); Z3A.40 40 weeks gestation of pregnancy; R10.11 Right upper quadrant pain; R93.429 Abnormal radiologic findings on diagnostic imaging of unspecified kidney
CPT/HCPCS: 36415; 80053; 85027; 86850; 86900; 86901; 76700; 86870; G0378

== ENCOUNTER 2025-06-01 05:41 | Inpatient (IN) | payer OTHER, SELFPAY ==
--- NOTE | 2025-05-31 21:48 | HPE_ITS ---
Date of service: 05/31/25 Time of Service: 21:49 Assessment and Plan Assessment and plan (1) Genital herpes: Status: Chronic (2) Status post primary low transverse section: (3) Depressive disorder: (4) Generalized anxiety disorder: (5) Migraine headache with aura: Status: Chronic (6) Maternal care for other rhesus isoimmunization, third trimester, fetus 1: Status: Acute (7) Congenital medullary sponge kidney: Status: Acute (8) Obesity (BMI 30.0-34.9): Status: Acute (9) Thrombocytopenia affecting : Status: Acute Assessment and plan: 25-year-old -0-0-1 (history of x 1) at 40 weeks and 1 day as dated by LMP equal to 8-week ultrasound to undergo repeat section ? complicated by history of obesity with excessive weight gain in , migraine headaches, genital HSV, heart palpitations, thrombocytopenia of , anti-C antibodies, possible medullary sponge kidneys ?Previously discussed risks and benefits with the patient and reviewed that anytime we break the skin there is always a risk of bleeding, infection, VTE, damage to surrounding tissues as well as potential complications associated with anesthesia. There are also unforeseen complications. Consented for repeat section. ? 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 NAKUL Calculator Estimated Delivery Date Method Current WG Current Estimate 05/31/25 LMP (Certain) 40w 0d Other Estimates 05/31/25 Ultrasound #1 40w 0d Comments: 25-year-old -0-0-1 (history of x 1) presents for scheduled repeat section at 40 weeks and 1 day as dated by LMP equal to 8-week ultrasound. Patient is complicated by a history of obesity with excessive weight gain in , migraine headaches, genital HSV, and history of heart palpitations. She was assessed in triage on the morning of 05/31/2025 for concerns surrounding right upper quadrant pain and was incidentally discovered to have thrombocytopenia of , anti-C antibodies, and possible sponge which kidneys. Patient originally desired trial of labor; however, she desires repeat section if no evidence of labor before 40 weeks. She reports go od movement, and she denies vaginal bleeding, leakage, or contractions. History of Present Expected Delivery Route/Plan Considering TOLAC - CNM/; pt decided for r-c/s FOB/partner - Bud Grewal (2nd child together) BG If has TOLAC, would want to try to avoid epidural Specific Issues/Plan 1. Previous LT c/s for intolerance of labor after IOL for 41+ wks 1a. Per [facility] ca% chance success; plan 30 wk MD appt, informed consent 03/17/2025: needs to bring consent from home - Plans 40+wk CS with possible TOLAC if labor before that. TOLAC consent signed 05/09/2025 2. cfDNA low risk female, known CF carrier negative, SMA declined, AFP declined 3. Genital HSV, Valtrex 1 gm daily starting @ 36 wks. 4. Hx migraine WOODS- taking magnesium daily 5. Has positive STU, unknown etiology, PCP aware 6. Heart palpitations- referral to PCP, confirm appointment made___ 6a. Holter monitor 03/08: normal 7. Excessive weight gain in ; 37 week growth US ordered and pending 8. 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 Thrombocytopenia of : Plts 117 on 05/31 10. Medullary Spongey kidney disease?: Based on appearance of kidneys on 05/31 US; not confirmed - nephrology referral Scheduled repeat for June 01 Review of Systems All systems reviewed & are unremarkable except as noted in HPI and below PFSH All Active Problems (Updated 05/31/25 @ 23:00 by Eda Rios, ) Thrombocytopenia affecting (Acute) Obesity (BMI 30.0-34.9) (Acute) Congenital medullary sponge kidney (Acute) Maternal care for other rhesus isoimmunization, third trimester, fetus 1 (Acute) Anti-big C antibody ID'd incidentally in 2022 Positive urine test (Acute) (Chronic) Aphthous ulcer (Chronic) Neurapraxia of left upper extremity (Chronic) Sensation of fullness in left ear (Chronic) Easy bruisability (Chronic) Negative von Willebrand's testing Migraine headache with aura (Chronic) Chronic headache (Chronic) Pulsatile tinnitus of left ear (Chronic) negative brain MRA and MRI Genital herpes (Chronic) Macular dystrophy (Chronic) Right eye, followed by [facility] Medical History (Updated 05/31/25 @ 23:00 by Eda Rios DO) Generalized anxiety disorder Chronic right flank pain Arthralgia Depressive disorder Surgical History S/P arthroscopy of left shoulder (08/20/24) Left shoulder arthroscopy with labral repair/stabilization, debridement, and open biceps tenodesis Status post primary low transverse section (07/04/23) Failed induction. intolerance of labor. Delivery of a viable male infant with loose body cord x 1 Family History Mother Asthma Alcohol abuse Depression Colon cancer Hypertension Father Bipolar disorder Alcohol abuse Sister Alcohol abuse Depression Brother No problems noted. Brother Alcohol abuse Maternal Grandfather , at 63 Brain cancer Depression Heart disease Hyperlipidemia Hypertension Type 2 diabetes mellitus Maternal Grandmother Depression Hyperlipidemia Breast cancer diagnosed age 70 Paternal Grandfather , at 52 Brain cancer Type 2 diabetes mellitus Alcohol abuse Heart disease Hyperlipidemia Hypertension Paternal Grandmother , 50s Alcohol abuse Lung cancer Depression Social History Smoking/Tobacco Use Status: Never Second Hand Exposure: Yes Smoking risk assessment performed?: Yes Alcohol Intake: current Alcohol Intake frequency: holidays/special occasions only Alcohol type: beer Drug use: Occasionally Substance use type: marijuana Details: Last marijuana use over a month ago. 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 Pets and animals: Yes Pets and animals: cat(s) Sexually active: Yes Do you think of yourself as: straight/heterosexual Current gender identity: female What is your relationship status?: living with partner How often do you talk on the phone with friends or family?: twice per week How often do you get together with friends or relatives?: three or more times per week How often do you attend synagogue or synagogue services?: decline to answer Do you belong to any clubs or organized social groups?: no Panel score (0-1 are the most socially isolated patients): 2 What type of physical activity do you participate in: other Details: lift at work Duration: > 90 minutes/day Frequency: 5-6 times per week Dawn/Worship: None Special dawn needs: No Agree to transfusion: Yes Seatbelt use: always Helmet use: Yes Helmet use: always Drive intox or ride w/intox commercial driver: No Working smoke detector in home: Yes Carbon monox detector in home: Yes Firearms in home: Yes Firearms unloaded and locked: Yes Do you feel safe at home: Yes Do you feel safe in your relationship?: Yes Victim of physical abuse: No Victim of emotional abuse: No Victim of sexual abuse: No Would you like helpful sources: No Female Reproductive History Menstrual control method: pills History History 2 Para 1 Hx # Term Pregnancies 1 Multiple births 0 Hx # Pregnancies 0 Ectopic pregnancies 0 AB induced 0 Hx Number of Living Children 1 AB spontaneous 0 Past Pregnancies Del. Date GA/Weeks # Preg Succ Route Wgt Sex Labor Lgth Anesth esia Location [facility] 07/04/23 41 No Yes 7 lb 6 oz Male [facility] [place] Kenisha/ Aimee, DO Delivery Date: 07/04/23 Last Updated by: Alesia Singh IOL for postdates, deep decels @ 7 cm, Dev Sheth Allergies and Home Medications Allergies Allergy/AdvReac Type Severity Reaction Status Date / Time nickel AdvReac Unknown Skin Rash Verified 05/25/25 11:03 Home Medications ?Medication ?Instructions ?Recorded ?Confirmed ?Type docosahexaenoic acid 200 mg 200 mg PO DAILY 09/22/24 0 05/30/25 History capsule ( DHA) magnesium 250 mg tablet 250 mg PO DAILY 12/17/2406/17 History cholecalciferol (vitamin D3) 50 50 mcg PO DAILY #90 ca ps 01/05/25 05/30/25 Rx mcg (2,000 unit) capsule valacyclovir 1 gram tablet 1,000 mg PO DAILY herpes ou tbreak 04/28/25 05/30/25 Rx (Valtrex) #30 tabs ondansetron 4 mg disintegrating 4 mg PO DAILY 24 hours #10 tabs 05/31/25 Rx tablet Exam Physical Exam Vital signs: Vital signs from the morning of 7 8 find temperature of 97.7 Fahrenheit, blood pressure 117/64, pulse of 79, respiration rate of 12 Vital Signs Reviewed: Yes Narrative: General: Well-nourished female no immediate distress Pulmonary: No evidence of respiratory distress Abdomen: Gravid, nontender Extremities: +1 edema noted equally bilaterally Psych: Appropriate affect; cooperative FHT: Category 1 [place] View: Quiet Detailed Labor and Delivery Exam Terry Score: Cervical Points Exam 0 1 2 3 Dilation Closed 1-2cm 3-4 cm 5-6cm Effacement 0-30% 40-50% 60-70% 80% Consistency Firm Medium Soft Station -3 -2 -1,0 +1,+2 Position Posterior Mid Anterior Results Results Group Beta Strep: Negative Blood Type: B+ Rubella Status: Immune Varicella Immunity: Immune Risk Assessment Risk for Shoulder Dystocia Historical/Initial OB: NEGATIVE FOR: Pelvic Abnormality, Pre- BMI>30, Previous Shoulder Dystocia or Previous Macrosomia Increased Risk?: No Risk for Pre-Eclampsia Daily Dose ASA Indicated: No Date Initiated/Initials: not indicated. JK Yes, if one or more: NEGATIVE FOR: Hx Pre-E/Gest HTN, Chronic HTN, Multiple Gestation, Pre-gestational DM, Renal Disease, Systemic Lupus or APA Syndrome Yes, if 2 or more: NEGATIVE FOR: Nulliparity, Age>= 35 yrs, >10yr btwn pregnan cies, BMI>30, ethinicty, Mother/Sister w/ Pre-E or Previous IUGR Risk for Post- Hemorrhage Initial: NEGATIVE FOR: Multiple Gestation, Previous PPH, Known Clotting Deficiency, Grand Multiparity or Anticoagulation At Risk?: No Risks Reviewed Risks Reviewed Upon Admission: Yes
[2025-06-01] VITALS (15 sets, daily range): BP systolic 106–120; BP diastolic 68–79; PULSE 62–82; RESP 16–18; TEMP 36.4–37; O2SAT 98–100; BMI 36.6
[2025-06-01] MEDS: Lactated Ringers 1,000 ML 125 ML IV (06:39)
[2025-06-01] MEDS: Normal Saline Flush 10 ML SYR IVP ×4 (06:40→23:54)
--- NOTE | 2025-06-01 07:54 | W.PM.PROGNOT ---
Date of Service Date of service: 06/01/25 Time of Service: 07:54 Assessment and Plan Assessment and plan (1) : Status: Chronic Assessment and plan: Will proceed to OR for repeat caesarean . Risk, benefits reviewed (2) Status post primary low transverse section: (3) Maternal care for other rhesus isoimmunization, third trimester, fetus 1: Status: Acute Assessment and plan: Blood bank aware. Blood on hold Subjective Subjective Interval history since last seen: Patient seen this AM. Doing well. Labs reviewed. Will proceed to OR for Repeat ceasarean today. Exam Const General: cooperative, healthy appearing, comfortable, no acute distress, well developed and well groomed HENMT Head: normal to inspection Eyes General: appearance normal, both eyes and all related structures Neck Neck: normal visual inspection, supple, no anterior neck swelling and nontender Resp Effort & Inspection: normal respiratory effort, no audible wheezes and no cough Cardio Rate: regular rate Rhythm: regular rhythm Skin General skin exam: no rashes or lesions noted Extrem General: normal to inspection, no clubbing, cyanosis or edema and no calf tenderness bilaterally Psych Appearance: grossly normal Mental Status: mental status grossly normal Speech and Movement: speech and movement normal Mood: congruent mood Insight: insight good Judgment: judgment good Objective Last Vital Signs Temp 97.6 F 06/01/25 06:23 Pulse 82 06/01/25 06:23 Resp 16 06/01/25 06:23 BP 111/72 06/01/25 06:23 Pulse Ox 98 06/01/25 06:23 Laboratory Results - last 24 hr 06/01/25 05:45 WBC Cancelled RBC Cancelled Hgb Cancelled Hct Cancelled MCV Cancelled MCH Cancelled MCHC Cancelled RDW Cancelled Plt Count Cancelled MPV Cancelled ABO/Rh Cancelled Antibody Screen Cancelled Time Spent with Patient Time Spent with Patient: 25-34 minutes Time was spent: preparing to see the patient(eg.review tests), obtaining and/or reviewing separately otained hiistory, referring, communicating with other health animal care attendant, indepentently interpreting results and counseling the patient
--- NOTE | 2025-06-01 10:29 | ANES.PREOP_ITS ---
General Info Date of Service Date Performed: 06/01/25 Height: 5 ft 7 in Weight: 106.141 kg Body Mass Index (BMI): 36.6 Surgical Procedure: Operation Date: 06/01/25 07:40 Proposed Procedure Side Surgeon p Section Desiree Cramer DO Meds Allergies and Home Medications Allergies Allergy/AdvReac Type Severity Reaction Status Date / Time nickel AdvReac Unknown Skin Rash Verified 06/01/25 10:10 Home Medication ?Medication ?Instructions ?Recorded docosahexaenoic acid 200 mg 200 mg PO DAILY 09/22/24 capsule ( DHA) magnesium 250 mg tablet 250 mg PO DAILY 12/17/24 cholecalciferol (vitamin D3) 50 50 mcg PO DAILY #90 ca ps 01/05/25 mcg (2,000 unit) capsule valacyclovir 1 gram tablet 1,000 mg PO DAILY herpes ou tbreak 04/28/25 (Valtrex) #30 tabs Current Visit Medications: Current Medications Generic Name Dose Route Start Last Admin Trade Name Freq PRN Reason Stop Dose Admin Citric Acid/Sodium Citrate 30 ml 06/01/25 06:00 Sodium Citrate 30 Ml Cup PO PREOP AMAYA Cefazolin Sodium/Dextrose 2 gm in 50 mls @ 100 mls/hr 06/01/25 05:45 Ancef Duplex IVPB PREOP AMAYA Azithromycin 500 mg/ Sodium 250 mls @ 250 mls/hr 06/01/25 05:45 Chloride IVPB PREOP AMAYA Ringer's Solution 1,000 mls @ 200 mls/hr 06/01/25 05:45 06/01/25 06:39 IV 125 mls/hr INFUSION AMAYA Administration IV Miscellaneous Supplies 1 each 06/01/25 05:45 Iv Access IV DIRECTED AMAYA Sodium Chloride 0 ml 06/01/25 05:40 Normal Saline Flush 10 Ml Syr IVP PRN PRN Sodium Chloride 0 ml 06/01/25 08:30 06/01/25 06:40 Normal Saline Flush 10 Ml Syr IVP 10 ml BID AMAYA Administration Sodium Chloride 0 ml 06/01/25 05:40 Normal Saline 10 Ml Vial IJ DIRECTED PRN PFSH Active Problems Active Problems: Problem Status Onset Code Thrombocytopenia affecting Acute O99.119, D69.6 Obesity (BMI 30.0-34.9) Acute E66.811 Congenital medullary sponge kidney Acute Q61.5 Maternal care for other rhesus isoimmunization, third trimester, fetus 1 Acute O36.0931 Positive urine test Acute Z32.01 Chronic Z34.90 Aphthous ulcer Chronic K12.0 Neurapraxia of left upper extremity Chronic S44.92XA Sensation of fullness in left ear Chronic H93.8X2 Easy bruisability Chronic R23.3 Migraine headache with aura Chronic G43.109 Chronic headache Chronic R51.9, G89.29 Pulsatile tinnitus of left ear Chronic H93.A2 Genital herpes Chronic A60.00 Macular dystrophy Chronic H35.50 Medical History Medical History (Updated 05/31/25 @ 23:00 by Eda Rios DO) Generalized anxiety disorder Chronic right flank pain Arthralgia Depressive disorder Surgical History Surgical History S/P arthroscopy of left shoulder (08/20/24) Left shoulder arthroscopy with labral repair/stabilization, debridement, and open biceps tenodesis Status post primary low transverse section (07/04/23) Failed induction. intolerance of labor. Delivery of a viable male inf ant with loose body cord x 1 Tobacco Smoking/Tobacco Use Status: Never Passive smoking exposure: Yes Second hand exposure: Yes Alcohol Alcohol Intake: current Alcohol intake frequency: holidays/special occasions only Alcohol type: beer Substance Use Substance use: Occasionally Substance use type: marijuana Details: Last marijuana use over a month ago. Prental History History 2 Para 1 Hx # Term Pregnancies 1 Multiple births 0 Hx # Pregnancies 0 Ectopic pregnancies 0 AB induced 0 Hx Number of Living Children 1 AB spontaneous 0 Past Pregnancies Del. Date GA/Weeks # Preg Succ Route Wgt Sex Labor Lgth Anesth esia Location Prov [facility] 07/04/23 41 No Yes 3345.244 g Male [facility] Kenisha/ DO Aimee Delivery Date: 07/04/23 Last Updated by: Alesia Singh IOL for postdates, deep decels @ 7 cmDev Vital Signs and Lab Results Vital Signs Most Recent Vital Signs in EMR: Most Recent Vital Signs Temp Pulse Resp BP Pulse Ox 36.6 C 80 17 120/79 100 06/01/25 09:40 06/01/25 10:14 06/01/25 09:40 06/01/25 09:40 06/01/25 09:40 Lab Results Blood Type / Crossmatch: Antibody Screen POSITIVE 05/31/25 Complete Blood Count: WBC, (4.4-10.8) 13.14 10^3/uL H 05/31/25, 06:55 RBC, (3.93-5.22) 3.95 10^6/uL 05/31/25, 06:55 Hgb, (11.2-15.7) 11.6 g/dL 05/31/25, 06:55 Hct, (36.0-46.0) 34.5 % L 05/31/25, 06:55 Plt Count, (130-400) 117 10^3/uL L 05/31/25, 06:55 Complete Metabolic Panel: Sodium, (136-145) 139 mmol/L 05/31/25, 06:55 Potassium, (3.5-5.1) 3.9 mmol/L 05/31/25, 06:55 Chloride, (98-107) 105 mmol/L 05/31/25, 06:55 Carbon Dioxide, (21.0-32.0) 23.5 mmol/L 05/31/25, 06 :55 BUN, (7-18) 10 mg/dL 05/31/25, 06:55 Creatinine, (0.55-1.02) 0.5 mg/dL L 05/31/25, 06:55 Est GFR (CKD-EPI 2020), (mL/min/1.73m2) 133.40 05/31/25, 06:55 Calcium, (8.5-10.1) 8.3 mg/dL L 05/31/25, 06:55 Albumin, (3.4-5.0) 2.5 g/dL L 05/31/25, 06:55 Glucose, (74-106) 89 mg/dL 05/31/25, 06:55 Liver Function Panel: ALT, (14-59) 16 U/L 05/31/25, 06:55 AST, (15-37) 16 U/L 05/31/25, 06:55 Anesthesia Assessment and Plan Anesthesia History Personal History: No History of Anesthesia Complications Family History: No Family History of Anesthesia Complications Exercise Tolerance Exercise Tolerance: Metabolic Equivalents>4 Pertinent Negatives Pertinent Negatives: No Symptoms of GERD, No Major Cardiovascular Symptoms or Complaints, No Major Pulmonary Symptoms or Complaints and No History of CVA/TIA Cardiac & Pulmonary Exam Cardiac Exam: Normal S1/S2 Heart Sounds Pulmonary Exam: Clear Bilateral Breath Sounds Implantable Cardiac Device Does patient have a Pacemaker or an ICD?: No Airway Exam Known Difficult Airway: No Mallampati Class: 2 Mouth Opening: Normal (> 3cm) Thyromental Distance: Greater than 3 cm Neck Range of Motion: Full ROM Neck Circumference: Normal Teeth Condition: Normal Dentition ASA Classification ASA Score: ASA 2 Emergency Case?: No NPO Status NPO Status: NPO Clears >2 hours, Solids >8 hours Status Status: Confirmed Anesthesia Plan Resuscitation Status: Full Code Anesthesia Technique: Spinal Anesthesia Airway Planned: Natural Airway Pain Management: Intrathecal Analgesia Monitors Used: Standard Monitors Preoperative Comments:: 25 yo for repeat c section. Sig PMHx: elevated BMI, chronic headache, LUE neurapraxia (after shoulder), anxiety/depression. never smoker, occ EtOH. Previous Anes: - shoulder, monteiro 2 grade 2b. - c section, 1.5 mL, 20 mcg fent, 150 mcg morphine. - epidural, 1 attempts, ANNABEL 5 cm, cath at 12 cm.
[2025-06-01] MEDS: AZITHROMYCIN 500 MG in Normal Saline 250 ML 250 MG IVPB (11:15)
[2025-06-01] MEDS: Lactated Ringers 1,000 ML 30 ML IV (12:02)
[2025-06-01] MEDS: ceFAZolin 2 GM/50 ML BAG IVPB (12:02)
[2025-06-01] MEDS: Oxytocin/Normal Saline 30 UNIT/500 ML BAG 167 UNITS IV (12:32)
[2025-06-01] MEDS: Bupivacaine 0.25% Pres-Free 30 ML VIAL (12:32)
--- NOTE | 2025-06-01 13:27 | PDOC.OPNB_ITS ---
Date of service: 06/01/25 Time of Service: 13:27 Operative Note Operative Note Delivery Method: Scheduled and Repeat Previous LT Incision: Yes DATE OF PROCEDURE: 06/01/25 PRE-OP DIAGNOSES: at 40 weeks 1 day, prior POST-OP DIAGNOSES: same PROCEDURE: Repeat low-transverse section SURGEON: Desiree Cramer Assisting Surgeon: Eda Rios Anesthesia: local and spinal Estimated blood loss (mL): 350 Pathology: none sent Complications: None Patient was transported to: floor Patient's condition: stable Indications: Prior delivery. at 40 weeks and 1 day, declines trial of labor Findings: Normal-appearing tubes, ovaries, uterus. Delivery of viable female with Apgars 8 and 9. Procedure Description: After full informed consent was obtained, patient was taken the operating suite with an IV running. She is placed in the seated position and spinal anesthesia administered. She was then placed in the dorsal supine position with leftward tilt and her anesthesia was tested and found to be adequate. She was prepped and draped in the usual sterile fashion including a vaginal preparation. Goodman catheter was inserted for continuous bladder drainage. She had pneumatic compression stockings for DVT prophylaxis. She received 2 g of Ancef and 500 mg of Zithromax for surgical site infection prophylaxis. A timeout was held. At this point quarter percent Marcaine was used to infiltrate at the previous surgical incision. Surgical incision was made through previous scar and carried down to the underlying fascia. The fascia was incised in the midline and the fascial incision extended laterally. The rectus muscles were then identified and in the midline. The peritoneum identified tented up and entered sharply and the peritoneal incision extended superiorly and inferiorly. At this point the delay bladder blade was inserted and the vesicouterine peritoneum was identified tented up and entered sharply. A bladder flap was created and the DeLee bladder blade was reinserted. A low transverse uterine incision was made with a scalpel and extended bluntly laterally. The vertex was delivered without trauma. There is no evidence of nuchal cord. Shoulders followed with ease. Three-vessel cord was noted and after delayed cord clamped x 2 and cut. The patient was then delivered to the pediatric group. At this point cord blood sample was obtained. Placenta was manually expressed from the uterus and the uterus was then exteriorized and cleared of all clot and debris. The uterine incision was closed in a single layer of 0 Monocryl suture in a running locked fashion and found to be hemostatic. The uterus was returned to the abdomen abdomen irrigated with copious amounts of normal saline. The uterine incision was then inspected and again noted to have achieved hemostasis. The fascial incision was then closed using 0 Vicryl suture in a running fashion. Subcu tissue was irrigated and reapproximated with 3-0 Vicryl suture in a simple interrupted fashion. Skin edge was reapproximated with 4-0 undyed Monocryl. Steri-Strips and a sterile dressing were placed. Goodman catheter was in situ draining clear yellow urine. Patient was taken the center in stable condition. QBL: 350 cc Complications: None apparent Fluids: Crystalloid per anesthesia Findings: Delivery of viable female infant with Apgars 8 and 9. Normal- appearing tubes, ovaries, uterus. Pathology: None sent.
--- NOTE | 2025-06-01 13:56 | ANES.POST_ITS ---
Postoperative Evaluation Date, Time and Location Date Performed: 06/01/25 Time Performed: 13:56 Patient Location: Obstetrics Vital Signs Most Recent Imported Vital Signs: Most Recent Vital Signs Temp Pulse Resp BP Pulse Ox 36.6 C 80 17 120/79 100 06/01/25 09:40 06/01/25 10:14 06/01/25 09:40 06/01/25 09:40 06/01/25 09:40 Pain Score Most Recent Pain Score: Most Recent Pain Score Pain Level 0 06/01/25 09:46 Assessment Mental Status: Awake (Alert & Oriented to Patient Baseline) Airway and Respiratory Function: Patent airway with normal (patient baseline) respiratory exam Cardiovascular Function: Hemodynamically Stable Hydration Status: Adequately Hydrated Nausea & Vomiting: No Nausea or Vomiting Pain: Pain is tolerable per patient (spinal still waning. ) Peripheral Nerve Block: Patient did not receive a nerve block Postoperative Comments:: VSS not populating in [employer], VSS pt comfortable.
[2025-06-01] MEDS: Naloxone 0.4 MG/ML VIAL IVP ×2 (15:05→15:58)
[2025-06-01] MEDS: Docusate Sodium 100 MG CAP PO (18:13)
[2025-06-01] MEDS: Acetaminophen 325 MG TAB 650 MG PO (18:13)
[2025-06-01] MEDS: Ketorolac 30 MG/ML VIAL 15 MG IVP ×2 (18:14→23:54)
[2025-06-01] MEDS: oxyCODONE 5 mg/Acetaminophen 325 mg TAB 1 TAB PO (21:02)
[2025-06-02] MEDS: oxyCODONE 5 mg/Acetaminophen 325 mg TAB 1 TAB PO ×4 (06:13→23:56)
[2025-06-02] MEDS: Ketorolac 30 MG/ML VIAL 15 MG IVP (06:13)
[2025-06-02 07:26] LABS: Abs Immature Grans 0.06 10^3/uL (0.0-0.06); HCT 33.6 % (36.0-46.0); HGB 11.2 g/dL (11.2-15.7); Immature Grans % 0.6 %; MCH 29.2 pg (27.0-33.0); MCHC 33.3 % (32.0-36.0); MCV 88 fL (80-95); MPV 11.5 fL (8.0-11.0); Platelet Count 120 10^3/uL (130-400); RBC 3.83 10^6/uL (3.93-5.22); RDW 13.3 % (11.7-14.6); RDW-SD 42.1 fL; WBC 10.31 10^3/uL (4.4-10.8)
[2025-06-02 08:15] VITALS: BP 124/79; PULSE 80; RESP 16; TEMP 36.7; O2SAT 98
[2025-06-02 09:30] VITALS: RESP 16
[2025-06-02] MEDS: Acetaminophen 325 MG TAB 650 MG PO (10:24)
[2025-06-02 10:30] VITALS: RESP 16
[2025-06-02 11:00] VITALS: RESP 16
[2025-06-02 12:35] VITALS: BP 127/79; PULSE 59; RESP 16; TEMP 36.4; O2SAT 99
[2025-06-02] MEDS: Ibuprofen 600 MG TAB PO ×3 (12:35→23:57)
--- NOTE | 2025-06-02 13:10 | OBPPV_ITS ---
Date of service: 06/02/25 Time of Service: 13:10 Assessment and Plan Assessment and plan (1) Status post repeat low transverse section: Status: Acute Assessment and plan: Postoperative day #1 status post repeat low-transverse section. Doing well. No issues or concerns. Continue routine postoperative and care. All questions answered. Anticipate discharge if stable 06/03/2025. Subjective Subjective Interval history: Patient seen and examined this morning. Doing well. Pain is reasonably well- controlled. She is ambulating and tolerating a regular diet. She has no issues or concerns and is hoping for discharge tomorrow. Hemoglobin is stable at 11.2. Exam Physical Exam Vital signs: Temp Pulse Resp BP Pulse Ox 97.5 F L 59 L 16 127/79 99 06/02/25 12:35 06/02/25 12:35 06/02/25 12:35 06/02/25 12:35 06/02/25 12:35 Vital Signs Reviewed: Yes Constitutional Constitutional: no acute distress HEENT Exam HEENT Exam: Normal Neck Exam Neck Exam: Normal Respiratory Exam Respiratory Exam: Normal Cardiovascular Exam Cardiovascular Exam: Normal Abdominal Exam Comments: Mepilex in place, small amount of shadowing at the left mid region of the incision, no extension. Fundal Exam Fundus: Below Umbilicus and Firm Extremities Exam Extremity Exam: Calf Tenderness and Edema (2+ bilateral) Skin Exam Skin Exam: Normal Neurological Exam Neurological Exam: Normal Psychiatric Exam Psychiatric Exam: Normal Results Hemoglobin/Hematocrit: Hgb 11.2 g/dL (11.2-15.7) 06/02/25 06:04 Hct 33.6 % (36.0-46.0) L 06/02/25 06:04 Abnormal Lab Findings: Abnormal Labs 06/02/25 06:04 RBC 3.83 L Hct 33.6 L Plt Count 120 L MPV 11.5 H Absolute Neutrophils 7.66 H
[2025-06-02 15:15] VITALS: BP 123/75; PULSE 64; RESP 16; TEMP 36.4; O2SAT 98
[2025-06-03 00:01] VITALS: BP 106/68; PULSE 66; RESP 16; TEMP 36.5; O2SAT 98
[2025-06-03] MEDS: oxyCODONE 5 mg/Acetaminophen 325 mg TAB 1 TAB PO (06:59)
[2025-06-03] MEDS: Ibuprofen 600 MG TAB PO (06:59)
[2025-06-03 07:30] VITALS: BP 114/75; PULSE 75; RESP 16; TEMP 36.5; O2SAT 97
--- NOTE | 2025-06-03 07:41 | DSE_ITS ---
Date of service: 06/03/25 Time of Service: 07:41 DS: Diagnosis Discharge Diagnosis (1) Status post repeat low transverse section: Status: Acute Asessment and Plan: Postop day #2 status post repeat low-transverse delivery. Doing well. Working on breast-feeding. Pain is reasonably well-controlled. Tolerating regular diet and oral pain medication with stable vital signs Discharge Plan Disposition Patient Disposition: Home Condition: Good Discharge Details Reason For Visit: Delivery Admit Date/Time: 06/01/25 05:41 Admit Provider: Desiree Cramer Attending Provider: Desiree Cramer Primary Care Provider: [facility] Course Hospital Course: Patient was admitted at 40 weeks and 1 day for repeat low-transverse . She had an uncomplicated surgical procedure. She had a routine postoperative and course. She was discharged to home day #2 ambulating, tolerating regular diet and oral pain medication, breast-feeding her daughter. Home Meds and New Rx's Prescriptions: New ibuprofen 600 mg tablet 600 mg PO Q6H PRNQty: 90 1RF oxycodone-acetaminophen [Percocet] 5-325 mg tablet 1 tab PO Q6H PRNQty: 10 0RF docusate sodium [Colace] 100 mg capsule 100 mg PO BID Qty: 30 1RF No Action magnesium 250 mg tablet 250 mg PO DAILY cholecalciferol (vitamin D3) 50 mcg (2,000 unit) capsule 50 mcg PO DAILY Qty: 90 4RF DHA 200 mg capsule 200 mg PO DAILY valacyclovir [Valtrex] 1 gram tablet 1,000 mg PO DAILY Qty: 30 4RF Discharge Instructions Additional Instructions: Follow-up with Dr. Cramer in 1, 2, and 6 weeks Patient will have renal ultrasound 4 to 6 weeks Stand Alone Forms: BC Instructions, BC Discharge Instruc Activity:: Pelvic rest, no heavy lif Equipment/Supplies:: No Equipment Needed Diet:: As Tolerated Discharge Orders Discharge Orders: Discharge Order (Routine); Ordered 06/03/25 Ordered By: Desiree Cramer OB:DS Summary Summary Episiotomy Description: None Contraception Discussed Contraception Discussed: Yes, [place] Gender-Baby A: Female weight: 7 lb 7.931 oz Status at Discharge Functional status at discharge: independent ambulation Overall status at discharge: patient is progressing back to baseline Mental Status: mental status grossly normal Speech and Movement: speech and movement normal Mood: congruent mood Affect: normal affect Exam Physical Exam Vital signs: Temp Pulse Resp BP Pulse Ox 97.7 F 66 16 106/68 98 06/03/25 00:01 06/03/25 00:01 06/03/25 00:01 06/03/25 00:01 06/03/25 00:01 Vital Signs Reviewed: Yes Constitutional Comments: See physical exam from progress note dated 06/03/2025 [facility] All Active Problems Status post repeat low transverse section (Acute) 06/01/2025, repeat , female . Thrombocytopenia affecting (Acute) Obesity (BMI 30.0-34.9) (Acute) Congenital medullary sponge kidney (Acute) Maternal care for other rhesus isoimmunization, third trimester, fetus 1 (Acute) Anti-big C antibody ID'd incidentally in 2022 Positive urine test (Acute) (Chronic) Aphthous ulcer (Chronic) Neurapraxia of left upper extremity (Chronic) Sensation of fullness in left ear (Chronic) Easy bruisability (Chronic) Negative von Willebrand's testing Migraine headache with aura (Chronic) Chronic headache (Chronic) Pulsatile tinnitus of left ear (Chronic) negative brain MRA and MRI Genital herpes (Chronic) Macular dystrophy (Chronic) Right eye, followed by [facility] Medical History Generalized anxiety disorder Chronic right flank pain Arthralgia Depressive disorder Surgical History S/P arthroscopy of left shoulder (08/20/24) Left shoulder arthroscopy with labral repair/stabilization, debridement, and open biceps tenodesis Status post primary low transverse section (07/04/23) Failed induction. intolerance of labor. Delivery of a viable male with loose body cord x 1 Family History Mother Asthma Alcohol abuse Depression Colon cancer Hypertension Father Bipolar disorder Alcohol abuse Sister Alcohol abuse Depression Brother No problems noted. Brother Alcohol abuse Maternal Grandfather , at 63 Brain cancer Depression Heart disease Hyperlipidemia Hypertension Type 2 diabetes mellitus Maternal Grandmother Depression Hyperlipidemia Breast cancer diagnosed age 70 Paternal Grandfather , at 52 Brain cancer Type 2 diabetes mellitus Alcohol abuse Heart disease Hyperlipidemia Hypertension Paternal Grandmother , 50s Alcohol abuse Lung cancer Depression Social History Smoking/Tobacco Use Status: Never Second Hand Exposure: Yes Smoking risk assessment performed?: Yes Alcohol Intake: current Alcohol Intake frequency: holidays/special occasions only Alcohol type: beer Drug use: Occasionally Substance use type: marijuana Details: Last marijuana use over a month ago. Caregiver/Support person: No Household members: spouse and children Housing: house Number of Children: 1 Communication Needs: None Education Level: high school Do you need help understanding health information?: Never current occupation: [employer] Pets and animals: Yes Pets and animals: cat(s) Sexually active: Yes Do you think of yourself as: straight/heterosexual Current gender identity: female What is your relationship status?: living with partner How often do you talk on the phone with friends or family?: twice per week How often do you get together with friends or relatives?: three or more times per week How often do you attend jehovah's witness or denominational services?: decline to answer Do you belong to any clubs or organized social groups?: no Panel score (0-1 are the most socially isolated patients): 2 What type of physical activity do you participate in: other Details: lift at work Duration: > 90 minutes/day Frequency: 5-6 times per week Dawn/Adventist: None Special dawn needs: No Agree to transfusion: Yes Seatbelt use: always Helmet use: Yes Helmet use: always 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 Date GA/Weeks # Preg Succ Route Wgt Sex Labor Lgth Anesth esia Location [facility] 07/04/23 41 No Yes 7 lb 6 oz Male regional Kenisha/ Aimee, Delivery Date: 07/04/23 Last Updated by: Alesia Singh IOL for postdates, deep decels @ 7 cm, Dev Salas DS: Data Vitals/I&O Vitals and I&O: Vital Signs Temperature 97.7 F 06/03/25 00:01 Temperature Source Oral 06/03/25 00:01 Pulse 66 06/03/25 00:01 Pulse Rhythm Regular 06/02/25 08:15 Respiratory Rate 16 06/03/25 00:01 Respiratory Depth Normal 06/01/25 20:20 Blood Pressure 106/68 06/03/25 00:01 Blood Pressure Mean 80 06/03/25 00:01 Pulse Oximetry 98 06/03/25 00:01 Pain Level 6 06/02/25 18:11 Intake & Output 06/02/25 06/02/25 06/03/25 11:59 23:59 11:59 Output Total 1350 / 1350 Balance -1350 / -1350 Output: Urine 1350 / 1350 Other: Urine Color [place] Urine Appearance Clear Urine Odor None Data Completed and Pending Labs on day of discharge: Labs from last 24 hours 06/02/25 06:04 WBC 10.31 RBC 3.83 L Hgb 11.2 Hct 33.6 L MCV 88 MCH 29.2 MCHC 33.3 RDW 13.3 Plt Count 120 L MPV 11.5 H Immature Gran % 0.6 Neutrophils % 74.3 Lymphocytes % 18.5 Monocytes % 6.2 Eosinophils % 0.2 Basophils % 0.2 Nucleated RBC % 0.0 Absolute Neutrophils 7.66 H Absolute Lymphocytes 1.91 Absolute Monocytes 0.64 Absolute Eosinophils 0.02 Absolute Basophils 0.02
--- NOTE | 2025-06-03 07:46 | W.PM.OBPNV1 ---
Date of service: 06/03/25 Time of Service: 07:47 Assessment and Plan Assessment and plan (1) Status post repeat low transverse section: Status: Acute Assessment and plan: 2 days status post repeat low-transverse . Doing well. Discharge home. Instructions and precautions given. Follow-up in 1, 2, and 6 weeks. (2) Congenital medullary sponge kidney: Status: Acute Assessment and plan: Incidental finding on ultrasound. No previous indication of such. Will repeat renal ultrasound 4 to 6 weeks . Exam Physical Exam Vital signs: Temp Pulse Resp BP Pulse Ox 97.7 F 66 16 106/68 98 06/03/25 00:01 06/03/25 00:01 06/03/25 00:01 06/03/25 00:01 06/03/25 00:01 Vital Signs Reviewed: Yes Constitutional Constitutional: no acute distress HEENT Exam HEENT Exam: Normal Neck Exam Neck Exam: Normal Respiratory Exam Respiratory Exam: Normal Cardiovascular Exam Cardiovascular Exam: Normal Abdominal Exam Abdomen: Tender Comments: Mepilex in place. Stable shadowing, marked on Mepilex Fundal Exam Fundus: Below Umbilicus and Firm Extremities Exam Extremity Exam: Normal; negative Calf Tenderness or Edema Skin Exam Skin Exam: Normal Neurological Exam Neurological Exam: Normal Psychiatric Exam Psychiatric Exam: Normal Results Hemoglobin/Hematocrit: Hgb 11.2 g/dL (11.2-15.7) 06/02/25 06:04 Hct 33.6 % (36.0-46.0) L 06/02/25 06:04 Abnormal Lab Findings: Abnormal Labs 06/02/25 06:04 RBC 3.83 L Hct 33.6 L Plt Count 120 L MPV 11.5 H Absolute Neutrophils 7.66 H
[2025-06-03] MEDS: Docusate Sodium 100 MG CAP PO (08:49)
== END 2025-06-03 11:00 | disposition home or self-care (01) | DRG 787 ==
PROVIDERS: Admitting Provider Obstetrics & Gynecology; PCP Nurse Practitioner Family; Visit Provider Obstetrics & Gynecology
PROC: 10D00Z1 Extraction of Products of Conception, Low, Open Approach (ICD-10-PCS; CPT 59514; principal; 2025-06-01 07:30)
DX: O34.211 Maternal care for low transverse scar from previous cesarean delivery (principal); O98.32 Other infections with a predominantly sexual mode of transmission complicating childbirth; O99.12 Other diseases of the blood and blood-forming organs and certain disorders involving the immune mechanism complicating childbirth; O99.354 Diseases of the nervous system complicating childbirth; Q61.5 Medullary cystic kidney; Z37.0 Single live birth; Z3A.40 40 weeks gestation of pregnancy; A60.09 Herpesviral infection of other urogenital tract; O99.214 Obesity complicating childbirth; E66.9 Obesity, unspecified; O26.00 Excessive weight gain in pregnancy, unspecified trimester; D69.6 Thrombocytopenia, unspecified; O99.892 Other specified diseases and conditions complicating childbirth; N28.89 Other specified disorders of kidney and ureter; R00.2 Palpitations; O36.1930 Maternal care for other isoimmunization, third trimester, not applicable or unspecified; F41.1 Generalized anxiety disorder; F32.A Depression, unspecified; O99.344 Other mental disorders complicating childbirth; G43.E09 Chronic migraine with aura, not intractable, without status migrainosus
CPT/HCPCS: 59514; 36415; 85027; 86850; 86900; 86901; 85025; 86870; 86902; J0456; J0665; J0690; J1100; J1885; J2274; J2312; J2371; J2405; J3010

== ENCOUNTER 2025-09-01 01:03 | Outpatient (CLI) | payer OTHER, SELFPAY ==
[2025-09-01 14:51] LABS: Abs Immature Grans 0.02 10^3/uL (0.0-0.06); HCT 39.0 % (36.0-46.0); HGB 13.2 g/dL (11.2-15.7); Immature Grans % 0.3 %; MCH 28.6 pg (27.0-33.0); MCHC 33.8 % (32.0-36.0); MCV 85 fL (80-95); MPV 10.2 fL (8.0-11.0); Platelet Count 200 10^3/uL (130-400); RBC 4.61 10^6/uL (3.93-5.22); RDW 12.4 % (11.7-14.6); RDW-SD 37.6 fL; WBC 8.00 10^3/uL (4.4-10.8)
[2025-09-01 14:52] LABS: ESR 5 mm/hr (0-20)
[2025-09-01 16:41] LABS: ALT 36 U/L (14-59); AST 24 U/L (15-37); Albumin 4.3 g/dL (3.4-5.0); Alkaline Phosphatase 92 U/L (46-116); Anion Gap 9.4 mmol/L (3-11); BUN 14 mg/dL (7-18); Bilirubin, Total 0.3 mg/dL (0.2-1.0); CO2 28.6 mmol/L (21.0-32.0); Calcium 8.9 mg/dL (8.5-10.1); Chloride 104 mmol/L (98-107); Estimated GFR 104.80 (mL/min/1.73m2); Glucose 75 mg/dL (74-106); Potassium 4.1 mmol/L (3.5-5.1); Sodium 142 mmol/L (136-145); Total Protein 7.1 g/dL (6.4-8.2)
[2025-09-02 18:11] LABS: CRP, High Sensitivity 1.92 mg/L (See Note)
[2025-09-05 09:48] LABS: Lyme Ab w Rflx to Lyme Confirm Negative (Negative)
[2025-09-05 23:13] LABS: B. miyamotoi PCR Negative (Negative); Babesia divergens/MO-1 Negative (Negative); Ehrlichia muris eauclairensis Negative (Negative)
== END 2025-09-01 01:04 | disposition home or self-care (01) ==
LOC: LBO 01:03
PROVIDERS: PCP Nurse Practitioner Family; Visit Provider Nurse Practitioner Family
DX: M25.50 Pain in unspecified joint (principal)
CPT/HCPCS: 36415; 80053; 85652; 86141; 86200; 87798; 85025; 86225; 86431; 86618

== ENCOUNTER 2025-09-19 15:29 | Emergency (ER) | payer OTHER, SELFPAY ==
[2025-09-19 15:32] VITALS: BP 148/91; PULSE 74; RESP 16; TEMP 36.6; O2SAT 98
[2025-09-19 15:34] VITALS: BP 148/91; PULSE 74; RESP 16; TEMP 36.6; O2SAT 98
--- NOTE | 2025-09-19 15:43 | DI.MRI_ITS ---
Exam(s) MR ANGIO BRAIN WO EXAM: MR ANGIO BRAIN WO CLINICAL HISTORY: 2weeks headache, 3 mo TECHNIQUE: Magnetic resonance venogram performed on 1.5 carl unit COMPARISON: None FINDINGS: As per request of the ordering provider this was performed with MRV sequences only. CEREBRAL PARENCHYMA: No evidence of intracranial hemorrhage, mass effect nor shift of midline structures. There are no extra-axial fluid collections. Ventricles are not enlarged or shifted. There is no abnormal white matter signal abnormality. No abnormal signal in the periventricular white matter. DURAL VENOUS SINUSES: No evidence of obvious thrombosis. PARANASAL SINUSES: The visualized paranasal sinuses appear unremarkable. IMPRESSION: 1. No evidence of obvious dural venous sinus thrombosis 2. No abnormal white matter signal abnormality on single axial FLAIR sequence of the brain. Report called by myself to ER provider 09/19/2025 at 4:28 p.m. DATA REPOSITORY:
[2025-09-19 16:41] LABS: Abs Immature Grans 0.01 10^3/uL (0.0-0.06); HCT 40.4 % (36.0-46.0); HGB 13.7 g/dL (11.2-15.7); Immature Grans % 0.2 %; MCH 28.5 pg (27.0-33.0); MCHC 33.9 % (32.0-36.0); MCV 84 fL (80-95); MPV 9.7 fL (8.0-11.0); Platelet Count 168 10^3/uL (130-400); RBC 4.81 10^6/uL (3.93-5.22); RDW 12.6 % (11.7-14.6); RDW-SD 38.5 fL; WBC 6.18 10^3/uL (4.4-10.8)
[2025-09-19] MEDS: ACETAMINOPHEN 500 MG/50 ML BAG 200 MG IVPB (16:54)
[2025-09-19] MEDS: Metoclopramide 10 MG/2 ML VIAL IVP (16:54)
[2025-09-19] MEDS: Normal Saline 1,000 ML 1000 ML IV (16:55)
[2025-09-19 17:07] LABS: ALT 26 U/L (14-59); AST 18 U/L (15-37); Albumin 4.2 g/dL (3.4-5.0); Alkaline Phosphatase 101 U/L (46-116); Anion Gap 10.4 mmol/L (3-11); BUN 14 mg/dL (7-18); Bilirubin, Total 0.2 mg/dL (0.2-1.0); CO2 27.6 mmol/L (21.0-32.0); Calcium 9.0 mg/dL (8.5-10.1); Chloride 105 mmol/L (98-107); Estimated GFR 104.80 (mL/min/1.73m2); Glucose 94 mg/dL (74-106); Magnesium 2.2 mg/dL (1.8-2.4); Potassium 3.8 mmol/L (3.5-5.1); Sodium 143 mmol/L (136-145); Total Protein 7.9 g/dL (6.4-8.2); Uric Acid 5.3 mg/dL (2.6-6.0)
[2025-09-19] MEDS: diphenhydrAMINE 50 MG/ML VIAL 25 MG IVP (17:54)
[2025-09-19 18:24] VITALS: PULSE 64; RESP 16; O2SAT 98
[2025-09-19 18:30] VITALS: BP 110/58; PULSE 62; PULSE 69; RESP 16; O2SAT 98
[2025-09-19 18:31] VITALS: PULSE 64; RESP 19; O2SAT 98
[2025-09-19] MEDS: Metoclopramide 10 MG TAB PO (19:17)
[2025-09-19 19:35] VITALS: BP 110/58; PULSE 75; RESP 18; TEMP 36.7; O2SAT 98
--- NOTE | 2025-09-19 22:58 | W.ED.GENAD ---
Discharge Plan Disposition Patient Disposition: Home Condition: Stable Discharge Details Clinical Impression: Headache Primary Care Provider: Kim Campuzano ED Provider: Leatha Calderón Home Meds and New Rx's Prescriptions: New metoclopramide HCl [Reglan] 10 mg tablet 10 mg PO Q8H PRNQty: 10 0RF Rx Instructions: prn headache Continued magnesium 250 mg tablet 250 mg PO DAILY cholecalciferol (vitamin D3) 50 mcg (2,000 unit) capsule 50 mcg PO DAILY Qty: 90 4RF valacyclovir [Valtrex] 1 gram tablet 1,000 mg PO DAILY PRN (Reason: herpes outbreak) ibuprofen 600 mg tablet 600 mg PO Q6H PRNQty: 90 1RF docusate sodium [Colace] 100 mg capsule 100 mg PO BID Qty: 30 1RF Discharge Instructions Instructions: Headache, Adult ED Additional Instructions: Take headache Take Tylenol 500 mg every 4-6 hours Make sure you are drinking at least 8, 8 ounce water daily return with recurrent or worsening headache or should any new concerns arise Referrals: Kim Campuzano NP [Primary Care Provider, Medicine] [facility] General Date/Time Provider Initiated Documentation: 09/19/25 15:37. HPI Narrative: This 25-year-old female presents 4 months headache for the past 2 weeks this is unusual for her. She is seen by her PCP today and they ordered an outpatient MRI but patient is concerned as the pain has been so persistent for her. She denies any history of preeclampsia with her . She is breast-feeding denies any stiff neck tick bites or current vision change although she has had some intermittent blurry vision. She denies any carbon monoxide exposure or recent illnesses or fever. She denies any urinary component to her symptoms. She denies any chance of and is still breast-feeding. She has not had restarted her menses.. She does report phonophobia and photophobia. She will if he still Related Data Home Medications ?Medication ?Instructions ?Recorded ?Confirmed magnesium 250 mg tablet 250 mg PO DAILY 12/17/24 09/19/25 cholecalciferol (vitamin D3) 50 50 mcg PO DAILY #90 caps 01/05/25 09/19/25 mcg (2,000 unit) capsule docusate sodium 100 mg capsule 100 mg PO BID #30 caps 06/03/25 09/19/25 (Colace) ibuprofen 600 mg tablet 600 mg PO Q6H PRN #90 tabs 06/03/25 09/19/25 valacyclovir 1 gram tablet 1,000 mg PO DAILY PRN herpes 06/13/25 09/19/25 (Valtrex) outbreak metoclopramide HCl 10 mg tablet 10 mg PO Q8H PRN #10 tabs 09/19/25 (Reglan) Previous Rx's ?Medication ?Instructions ?Recorded cholecalciferol (vitamin D3) 50 50 mcg PO DAILY #90 caps 01/05/25 mcg (2,000 unit) capsule docusate sodium 100 mg capsule 100 mg PO BID #30 caps 06/03/25 (Colace) ibuprofen 600 mg tablet 600 mg PO Q6H PRN #90 tabs 06/03/25 metoclopramide HCl 10 mg tablet 10 mg PO Q8H PRN #10 tabs 09/19/25 (Reglan) Allergies Allergy/AdvReac Type Severity Reaction Status Date / Time nickel AdvReac Unknown Skin Rash Verified 09/19/25 15:34 General Stated Complaint: Headache KATY: 3 Exam Narrative Exam Narrative: Alert and oriented 25-year-old female in acute discomfort, breast-feeding currently, pupil equal round reactive to light and accommodation no meningismus no carotid bruit or pulsatile mass, cardiac rate rhythm regular. There are 2 through 12 intact ambulatory with steady gait. Course Vital Signs Vital signs: Vital Signs Temperature 36.6 C 09/19/25 15:32 Pulse 74 09/19/25 15:32 Respiratory Rate 16 09/19/25 15:32 Blood Pressure 148/91 H 09/19/25 15:32 Pulse Oximetry 98 09/19/25 15:32 Temperature 36.7 C 09/19/25 19:35 Pulse 75 09/19/25 19:35 Pulse 64 09/19/25 18:31 Respiratory Rate 18 09/19/25 19:35 Blood Pressure 110/58 L 09/19/25 19:35 Blood Pressure Mean 74 09/19/25 18:30 Pulse Oximetry 98 09/19/25 19:35 Pain Level 0 09/19/25 19:35 Lab/Test Results Lab/Test Results: Laboratory Tests Range/Units 09/19/25 16:35 WBC (4.4-10.8) 10^3/uL 6.18 RBC (3.93-5.22) 10^6/uL 4.81 Hgb (11.2-15.7) g/dL 13.7 Hct (36.0-46.0) % 40.4 MCV (80-95) fL 84 MCH (27.0-33.0) pg 28.5 MCHC (32.0-36.0) % 33.9 RDW (11.7-14.6) % 12.6 Plt Count (130-400) 10^3/uL 168 MPV (8.0-11.0) fL 9.7 Immature Gran % % 0.2 Neutrophils % % 54.7 Lymphocytes % % 39.6 Monocytes % % 4.9 Eosinophils % % 0.3 Basophils % % 0.3 Nucleated RBC % (0.0-0.3) % 0.0 Absolute Neutrophils (1.2-6.7) 10^3/uL 3.38 Absolute Lymphocytes (1.2-3.4) 10^3/uL 2.45 Absolute Monocytes (0.1-0.8) 10^3/uL 0.30 Absolute Eosinophils (0.0-0.7) 10^3/uL 0.02 Absolute Basophils (0.0-0.2) 10^3/uL 0.02 Sodium (136-145) mmol/L 143 Potassium (3.5-5.1) mmol/L 3.8 Chloride (98-107) mmol/L 105 Carbon Dioxide (21.0-32.0) mmol/L 27.6 Anion Gap (3-11) mmol/L 10.4 BUN (7-18) mg/dL 14 Creatinine (0.55-1.02) mg/dL 0.8 Est GFR (CKD-EPI 2020) (mL/min/1.73m2) 104.80 Glucose (74-106) mg/dL 94 Uric Acid (2.6-6.0) mg/dL 5.3 Calcium (8.5-10.1) mg/dL 9.0 Magnesium (1.8-2.4) mg/dL 2.2 Total Bilirubin (0.2-1.0) mg/dL 0.2 AST (15-37) U/L 18 ALT (14-59) U/L 26 Alkaline Phosphatase (46-116) U/L 101 Total Protein (6.4-8.2) g/dL 7.9 Albumin (3.4-5.0) g/dL 4.2 Medical Decision Making Results: MRV per radiology discussion does not show evidence of acute abnormality diagnostic blood work is reassuring Assessment and plan: Migraine cocktail was administered and patient's headache has almost completely resolved. Unfortunately secondary to breast-feeding she is not really a candidate for triptans or steroids so I will give her Compazine for home. She is encouraged to follow-up with PCP in 1 to 2 days for a check and management. Return precautions reviewed and patient expressed understanding discharged home in stable condition with stable vitals blood pressure inconsistent with preeclampsia with a normal MRV PFSH All Active Problems (Updated 09/19/25 @ 18:51 by LUDMILA Alvarez) Headache (Acute) Arthralgia (Chronic) Prolapsed internal hemorrhoids, grade 2 (Chronic) Congenital medullary sponge kidney (Chronic) Neurapraxia of left upper extremity (Chronic) Chronic headache (Chronic) Pulsatile tinnitus of left ear (Chronic) Seeing [facility] Macular dystrophy (Chronic) Right eye, followed by [facility] Obesity (Chronic) Medical History (Updated 09/19/25 @ 18:51 by LUDMILA Alvarez) Maternal care for other rhesus isoimmunization, third trimester, fetus 1 Anti-big C antibody ID'd incidentally in 2022 Migraine headache with aura Genital herpes Generalized anxiety disorder Chronic right flank pain likely related to congenital medullary sponge kidney Depressive disorder Surgical History (Updated 08/11/25 @ 21:27 by Kim Campuzano NP) Status post repeat low transverse section (06/01/25) repeat , female infant. S/P arthroscopy of left shoulder (08/20/24) Left shoulder arthroscopy with labral repair/stabilization, debridement, and open biceps tenodesis Status post primary low transverse section (07/04/23) Failed induction. intolerance of labor. Delivery of a viable male with loose body cord x 1 Family History Mother Asthma Alcohol abuse Depression Colon cancer Hypertension Father Bipolar disorder Alcohol abuse Sister Alcohol abuse Depression Brother No problems noted. Brother Alcohol abuse Maternal Grandfather , at 63 Brain cancer Depression Heart disease Hyperlipidemia Hypertension Type 2 diabetes mellitus Maternal Grandmother Depression Hyperlipidemia Breast cancer diagnosed age 70 Paternal Grandfather , at 52 Brain cancer Type 2 diabetes mellitus Alcohol abuse Heart disease Hyperlipidemia Hypertension Paternal Grandmother , 50s Alcohol abuse Lung cancer Depression Social History Smoking/Tobacco Use Status: Never Second Hand Exposure: Yes Smoking risk assessment performed?: Yes Alcohol Intake: current Alcohol Intake frequency: holidays/special occasions only Alcohol type: beer Drug use: Occasionally Substance use type: marijuana Details: Last marijuana use over a month ago. Caregiver/Support person: No Household members: spouse and children Housing: house Number of Children: 1 Communication Needs: None Education Level: high school Do you need help understanding health information?: Never current occupation: [employer] Pets and animals: Yes Pets and animals: cat(s) Sexually active: Yes Do you think of yourself as: straight/heterosexual Current gender identity: female What is your relationship status?: living with partner How often do you talk on the phone with friends or family?: twice per week How often do you get together with friends or relatives?: three or more times per week How often do you attend pentecostalism or baptist services?: decline to answer Do you belong to any clubs or organized social groups?: no Panel score (0-1 are the most socially isolated patients): 2 What type of physical activity do you participate in: other Details: lift at work Duration: > 90 minutes/day Frequency: 5-6 times per week Dawn/Pentecostal: None Special dawn needs: No Agree to transfusion: Yes Seatbelt use: always Helmet use: Yes Helmet use: always 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 Date GA/Weeks # Preg Succ Route Wgt Sex Labor Lgth Anesthesia Location [facility] 07/04/23 41 No Yes 3345.244 g Male [facility] Kenisha/ DO Aimee 06/01/25 40 No Yes 3401.943 g Female Mil Cramer DO Delivery Date: 07/04/23 Last Updated by: Alesia Singh IOL for postdates, deep decels @ 7 cm, Dev Salas
== END 2025-09-19 19:34 | disposition home or self-care (01) ==
PROVIDERS: Emergency Provider Physician Assistant; PCP Nurse Practitioner Family
DX: R51.9 Headache, unspecified (principal)
CPT/HCPCS: 99284 ×2; 96375; 70544; 80053; 96361; 96365; 83735; 84550; 85025; J0131; J1200; J2765